=== PATIENT | male | born 1990 | race Caucasian/White ===

== ENCOUNTER 2020-04-30 11:48 | Emergency (ER) | payer OTHER, SELFPAY ==
[2020-04-30 11:59] VITALS: BP 210/106; PULSE 87; RESP 16; TEMP 36.7; O2SAT 97; BMI 32.5
[2020-04-30 12:04] VITALS: PULSE 82; RESP 16; O2SAT 99
[2020-04-30] MEDS: acetaminophen 325 mg Tablet 650 MG PO (12:33)
--- NOTE | 2020-04-30 12:49 | PC.NURSE ---
Blood glucose 117
[2020-04-30 12:53] LABS: Glucose Point of Care 117 mg/dL (70-110)
[2020-04-30 13:08] LABS: Basophils # 0.1 10^3/uL (0.0-0.1); Basophils % 0.4 %; Eosinophils # 0.2 10^3/uL (0.0-0.8); Eosinophils % 1.3 %; Hematocrit 34.7 % (42.0-52.0); Hemoglobin 11.6 g/dL (11.7-16.6); Lymphocytes # 2.1 10^3/uL (0.8-4.8); Mean Corpuscular HGB Conc 33.4 g/dL (30.0-36.0); Mean Corpuscular Hemoglobin 29.7 pg (28.0-34.0); Mean Corpuscular Volume 88.7 fL (80-94); Mean Platelet Volume 10.5 fL (7.4-10.4); Monocytes # 0.9 10^3/uL (0.2-0.9); Monocytes % 7.3 %; Neutrophils # 9.02 10^3/uL (1.8-7.7); Neutrophils % 73.7 %; Nucleated Red Blood Cells % 0 %; Platelet Count 185 10^3/cmm (130-400); Red Blood Count 3.91 10^6/uL (4.1-5.3); Red Cell Distribution Width 12.7 % (12.1-15.1); White Blood Count 12.3 10^3/uL (4.0-10.0)
--- NOTE | 2020-04-30 13:23 | W.ED.HA ---
HPI - Headache General: Chief Complaint: Headache Stated Complaint: migraine Time Seen by Provider: 04/30/20 12:08 History of Present Illness: HPI Narrative: 30-year-old male patient presents to the emergency department with 3-day onset of headache. He is insulin-dependent diabetic, reports low blood sugar past several days despite reduction of insulin. He reports seen at [facility] on Thursday, April 28, 2020, due to continued headache, HTN and low blood sugar. States was not placed on BP medication. He reports was told blood pressure was elevated at that time, reports stopped his lisinopril years ago. His primary care physician is Dr. Escamilla, he reports nausea with headache but denies vomiting. He denies history of migraine headaches, denies diagnosis of migraines. He reports migraine is located on the front of the head. He denies falls, he reports tremors and dizziness. He denies trauma such as hitting his head. MD elicited complaint: headache Onset (ago): day(s) (3) Associated symptoms: Reports nausea; Deny chest pain, confusion, diaphoresis, fever(s), rash or vomiting Review of Systems General: Reports: 10 or more systems reviewed and unremarkable except in HPI and below Const: Denies: fever(s), chills or diaphoresis Eyes: Denies: blurry vision or eye redness ENMT: Denies: throat pain, dental pain or disequilibrium Card: Denies: chest pain, palpitations or irregular heart rhythm Resp: Denies: dyspnea, productive cough, non-productive cough or wheezing GI: Reports: nausea; Denies: abdominal pain, vomiting, dysphagia or heartburn : Denies: dysuria Musc: Denies: back pain, extremity swelling, joint swelling or muscle weakness Skin/Breast: Denies: rash, pruritus or changes in skin color Neuro: Reports: headache(s); Denies: numbness in extremities, weakness in extremities, difficulty walking, confusion or behavioral changes Farhan/Lymph: Denies: easy bruising Physical Exam Const: COMMON NORMALS: patient oriented x3, healthy appearing and alert GENERAL APPEARANCE: cooperative, comfortable and well hydrated HENMT: COMMON NORMALS: normocephalic, Normal external nose present and moist oral mucous membranes HEAD & SCALP: normocephalic NOSE: Normal external nose present Eye: COMMON NORMALS: Equal, round and reactive pupils present and EOMs intact bilaterally GENERAL EYE: appearance normal, both eyes and all related structures PUPIL: Yes Equal, round and reactive pupils present Neck/C-Spine: COMMON NORMALS: full ROM and no lymphadenopathy GENERAL: Yes normal visual inspection and Yes trachea midline CERVICAL SPINE: Yes cervical ROM normal Lymph: LYMPHATIC: no lymphadenopathy noted Chest: COMMONS NORMALS: normal inspection of the chest Resp: COMMON NORMALS: normal respiratory effort and clear to auscultation bilaterally AUSCULTATION: clear to auscultation bilaterally Cardio: COMMON NORMALS: regular rhythm, S1 normal heart sound present and S2 normal heart sound present RHYTHM: regular rhythm HEART SOUNDS: S1 normal heart sound present and S2 normal heart sound present GI: COMMON NORMALS: Soft to palpation and non-tender INSPECTION: Yes normal to inspection PALPATION: Yes Soft to palpation : COMMON NORMALS: Yes no CVA tenderness BLADDER/KIDNEY EXAM: Yes no CVA tenderness Back/Pelvis: COMMON NORMALS: no CVA tenderness and thoracic and lumbar spine normal to inspection Extremity: COMMON NORMALS: normal to inspection and capillary refill normal Neuro: COMMON NORMALS: patient oriented x3 and no focal motor deficits SENSORIUM/ORIENTATION: Yes alert SPEECH: speech normal GAIT: Yes Normal gait present MOTOR EXAM: 5/5 motor strength present throughout Psych: COMMON NORMALS: mental status grossly normal, Normal thought process present and cooperative ACTIVITY/MOTOR BEHAVIOR: Yes appropriate eye contact THOUGHT PROCESS: Normal thought process present Skin: COMMON NORMALS: no rashes or lesions noted and turgor normal GENERAL SKIN EXAM: no rashes or lesions noted and turgor normal Course ED course: 30-year-old male patient presents to the emergency department with hypertension and headache. Potassium was found to be 3.2, replaced. Headache and nausea resolved with use of Tylenol, CT negative for intracranial abnormality, ethmoid sinus and right sphenoid and medial frontal sinus noted with mucosal thickening. Case discussed with Dr. Caruso -clonidine administered due to blood pressure 211/102. Patient recommended to resume lisinopril. Advised on lifestyle changes. Advised will need follow-up with Dr. Escamilla this week without fail for repeat chemistry and blood pressure follow-up. Follow-up blood pressure 175/100, reports blood pressure elevation for quite some time, I discussed with him at length diabetes and nephropathy, need for blood pressure control, goal blood pressure less than 130/80, advised patient of protein in urine and need for lisinopril daily. Verbalized understanding and agrees to follow-up with Dr. Escamilla this week without fail. Vital Signs: Vital signs: Vital Signs Temperature 98.1 F 04/30/20 11:59 Pulse Rate 92 04/30/20 16:26 Respiratory Rate 18 04/30/20 16:26 Blood Pressure 198/115 04/30/20 16:26 Pulse Oximetry 97 04/30/20 16:26 MDM - Headache Differential Diagnosis: Differential diagnosis headache: Likely migraine, tension headache, subarachnoid hemorrhage and sinusitis Lab Data: Labs: Lab Results 04/30/20 04/30/20 04/30/20 Range/Units 12:47 13:00 13:00 WBC 12.3 H (4.0-10.0) 10^3/ uL RBC 3.91 L (4.1-5.3) 10^6/u L Hgb 11.6 L (11.7-16.6) g/dL Hct 34.7 L (42.0-52.0) % MCV 88.7 (80-94) fL MCH 29.7 (28.0-34.0) pg MCHC 33.4 (30.0-36.0) g/dL RDW 12.7 (12.1-15.1) % Plt Count 185 (130-400) 10^3/c mm MPV 10.5 H (7.4-10.4) fL Neut % (Auto) 73.7 % Lymph % (Auto) 17.0 % [place] % (Auto) 7.3 % Eos % (Auto) 1.3 % Baso % (Auto) 0.4 % Neut # (Auto) 9.02 H (1.8-7.7) 10^3/u L Lymph # (Auto) 2.1 (0.8-4.8) 10^3/u L [place] # (Auto) 0.9 (0.2-0.9) 10^3/u L Eos # (Auto) 0.2 (0.0-0.8) 10^3/u L Baso # (Auto) 0.1 (0.0-0.1) 10^3/u L Nucleated RBC % (a uto) 0 % Nucleated RBCs # 0.0 /100WBC Sodium 141 (136-145) mmol/L Potassium 3.2 L (3.5-5.1) mmol/L Chloride 105 (98-107) mmol/L Carbon Dioxide 27 (22-29) mmol/L Anion Gap 12.2 (5-19) BUN 10 (6-20) mg/dL Creatinine 1.2 (0.7-1.2) mg/dL GFR Calculation 71.1 L (90-130) mL/min Glucose 111 (65-115) mg/dL POC Glucose 117 (70-110) mg/dL Calculated Osmolal ity 289 (285-295) mOsm/k g Calcium 8.6 (8.5-10.5) mg/dL Total Bilirubin 0.8 (0.15-1.2) mg/dL AST 19 (0-40) U/L ALT 12 (0-41) U/L Alkaline Phosphata se 56 (40-130) IU/L Total Protein 6.3 L (6.6-8.7) g/dL Albumin 3.3 L (3.5-5.2) g/dL Globulin 3.0 (1.3-4.6) g/dL Lipase 9 L (13-60) U/L Urine Color (Yellow) Urine Appearance (CLEAR) Urine pH (5-7) Ur Specific Gravit y (1.005-1.030) Urine Protein (Negative) Urine Glucose (UA) (Normal) Urine Ketones (Negative) Urine Blood (Negative) Urine Nitrate (Negative) Urine Bilirubin (NEGATIVE) Urine Urobilinogen (Negative) mg/dL Ur Leukocyte Jesenia ase (Negative) Urine RBC (0-2) /hpf Urine WBC (0-5) /hpf Ur Squamous Epith Cells (0-5) Amorphous Sediment Urine Bacteria (NONE) Urine Mucus 04/30/20 Range/Units 14:03 WBC (4.0-10.0) 10^3/ uL RBC (4.1-5.3) 10^6/u L Hgb (11.7-16.6) g/dL Hct (42.0-52.0) % MCV (80-94) fL MCH (28.0-34.0) pg MCHC (30.0-36.0) g/dL RDW (12.1-15.1) % Plt Count (130-400) 10^3/c mm MPV (7.4-10.4) fL Neut % (Auto) % Lymph % (Auto) % [place] % (Auto) % Eos % (Auto) % Baso % (Auto) % Neut # (Auto) (1.8-7.7) 10^3/u L Lymph # (Auto) (0.8-4.8) 10^3/u L [place] # (Auto) (0.2-0.9) 10^3/u L Eos # (Auto) (0.0-0.8) 10^3/u L Baso # (Auto) (0.0-0.1) 10^3/u L Nucleated RBC % (a uto) % Nucleated RBCs # /100WBC Sodium (136-145) mmol/L Potassium (3.5-5.1) mmol/L Chloride (98-107) mmol/L Carbon Dioxide (22-29) mmol/L Anion Gap (5-19) BUN (6-20) mg/dL Creatinine (0.7-1.2) mg/dL GFR Calculation (90-130) mL/min Glucose (65-115) mg/dL POC Glucose (70-110) mg/dL Calculated Osmolal ity (285-295) mOsm/k g Calcium (8.5-10.5) mg/dL Total Bilirubin (0.15-1.2) mg/dL AST (0-40) U/L ALT (0-41) U/L Alkaline Phosphata se (40-130) IU/L Total Protein (6.6-8.7) g/dL Albumin (3.5-5.2) g/dL Globulin (1.3-4.6) g/dL Lipase (13-60) U/L Urine Color Yellow (Yellow) Urine Appearance Clear (CLEAR) Urine pH 6.0 (5-7) Ur Specific Gravit y 1.015 (1.005-1.030) Urine Protein 3+ H (Negative) Urine Glucose (UA) Norm (Normal) Urine Ketones 1+ H (Negative) Urine Blood 3+ H (Negative) Urine Nitrate Negative (Negative) Urine Bilirubin Neg (NEGATIVE) Urine Urobilinogen 1 H (Negative) mg/dL Ur Leukocyte Jesenia ase Negative (Negative) Urine RBC 25-40 H (0-2) /hpf Urine WBC 0-4 H (0-5) /hpf Ur Squamous Epith Cells 0-4 H (0-5) Amorphous Sediment Not Reportable Urine Bacteria 1+ H (NONE) Urine Mucus 1+ Imaging Data^: CT Head: Radiologist's impression: [facility] [address] [place] [address] CT Scan Report Signed Patient: Klever Jack #: [id number] : 1990Acct#:[id number] Age/Sex: 30 / MADM Date: 04/30/20 Loc: ERRoom/Bed: Attending Dr: Ordering Provider/Ordering MD: Rocio Weldon Date of Service: 04/30/20 Procedure(s): CT head wo con* [id number] Accession Number(s): [id number] Report Number: [id number] PROCEDURE INFORMATION: Exam: CT Head Without Contrast Exam date and time: 04/30/2020 1:30 PM Age: 30 years old Clinical indication: Pain; Headache not specified; Patient HX: Fronto-orbital headache x 3 days TECHNIQUE: Imaging protocol: Computed tomography of the head without contrast. Radiation optimization: All CT scans at this facility use at least one of these dose optimization techniques: automated exposure control; mA and/or kV adjustment per patient size (includes targeted exams where dose is matched to clinical indication); or iterative reconstruction. COMPARISON: No relevant prior studies available. RADIATION DOSE METRICS: Total DLP (mGy-cm): 742.04 FINDINGS: Brain: Extra-axial fluid posterior to cerebellum is likely anatomic variant angie cisterna magna. There is no acute intracranial hemorrhage. No extra-axial fluid collection. No evidence of acute infarct. Mendez white differentiation is intact. There is no evidence of mass. There is no mass effect or midline shift. Ventricles: No ventriculomegaly. Bones/joints: No acute fracture. Sinuses: There is mild mucosal thickening in right greater than left ethmoid air cells and in right sphenoid and medial frontal sinus. No air-fluid levels. Mastoid air cells: There is small amount of opacification likely effusion in inferior posterior mastoid air cells. Soft tissues: Unremarkable as visualized. CT/CT head wo con* [id number] IMPRESSION: 1. No evidence of acute intracranial abnormality. No acute intracranial hemorrhage, evidence of acute infarct, or evidence of mass producing lesion. 2. Minimal mucosal sinus disease. Small amount of mastoid partial opacification. Radiation Dose CTDIVOL = (mGy): DLP = 742.04 (mGy-cm) Dictated By:Stephanie Quevedo MD Signed By:Stephanie Quevedoigned Date/Time:04/30/20 1401 Discharge Plan Discharge Patient Disposition: Home Clinical Impression: Acute hypokalemia Headache Qualifiers: Headache type: unspecified Headache chronicity pattern: acute headache Intractability: intractable Qualified Code(s): R51 - Headache Sinusitis Qualifiers: Sinusitis location: ethmoidal Chronicity: acute Recurrence: non-recurrent Qualified Code(s): J01.20 - Acute ethmoidal sinusitis, unspecified Hypertension Qualifiers: Hypertension type: essential hypertension Qualified Code(s): I10 - Essential (primary) hypertension Condition: Stable Prescriptions: New lisinopril 20 mg tablet 20 mg PO DAILY MDD 1 Qty: 30 RF: 0 clonidine HCl 0.1 mg tablet 0.1 mg PO DAILY PRN (Reason: hypertensive emergency) Qty: 7 RF: 0 Augmentin 875-125 mg tablet 1 tab PO Q12H Qty: 30 RF: 0 potassium chloride 10 mEq capsule, extended release 10 meq PO BID Qty: 30 RF: 0 No Action ondansetron HCl 4 mg tablet 4 mg PO Q6H PRN (Reason: Nausea) RF: 0 propranolol 60 mg capsule,extended release 24 hr 60 mg PO DAILY RF: 0 ibuprofen 200 mg Tablet 600 mg PO PRN RF: 0 omeprazole 20 mg Capsule,Delayed Release(Dr/Ec) 40 mg PO DAILY RF: 0 Levemir FlexTouch U-100 Insuln 100 unit/mL (3 mL) insulin pen 44 unit SUBCUT BID RF: 0 Discharge Orders: Discharge Order (Routine); Ordered 04/30/20 Ordered By: Rocio Weldon Referrals: Alex Escamilla [Primary Care Provider] - Discharge Diet: Cardiac and Low Salt Discharge Activity: Resume usual activity Patient Instructions: Sinusitis (ED), Hypokalemia (ED), Acute Headache (ED), Hypertension (ED) Activity Restrictions/Additional Instructions: Push fluids Encourage small snacks for low blood sugar, follow-up with your doctor this week without fail for repeat chemistry You will need follow-up for continued episodes of low blood sugar Take potassium with food Start lisinopril Monitor blood pressure daily while at rest for 30 minutes, record your readings and take to your primary care provider Take clonidine daily as needed and only if blood pressure is greater than 180/100 Encourage low-sodium diet as this will help drop blood pressure If headache returns, take Tylenol, 650 mg every 4 hours as needed Return to the emergency department if you develop the worst headache of your life, intractable vomiting COVID testing completed today, please quarantine until test results are confirmed Stand Alone Forms: Work/School Release Discharge Date/Time: 04/30/20 16:30 Coding Level of Care Code ED Merchandising Manager for Fly Fwd 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
--- NOTE | 2020-04-30 13:26 | CTR_ITS ---
PROCEDURE INFORMATION: Exam: CT Head Without Contrast Exam date and time: 04/30/2020 1:30 PM Age: 30 years old Clinical indication: Pain; Headache not specified; Patient HX: Fronto-orbital headache x 3 days TECHNIQUE: Imaging protocol: Computed tomography of the head without contrast. Radiation optimization: All CT scans at this facility use at least one of these dose optimization techniques: automated exposure control; mA and/or kV adjustment per patient size (includes targeted exams where dose is matched to clinical indication); or iterative reconstruction. COMPARISON: No relevant prior studies available. RADIATION DOSE METRICS: Total DLP (mGy-cm): 742.04 FINDINGS: Brain: Extra-axial fluid posterior to cerebellum is likely anatomic variant angie cisterna magna. There is no acute intracranial hemorrhage. No extra-axial fluid collection. No evidence of acute infarct. Mendez white differentiation is intact. There is no evidence of mass. There is no mass effect or midline shift. Ventricles: No ventriculomegaly. Bones/joints: No acute fracture. Sinuses: There is mild mucosal thickening in right greater than left ethmoid air cells and in right sphenoid and medial frontal sinus. No air-fluid levels. Mastoid air cells: There is small amount of opacification likely effusion in inferior posterior mastoid air cells. Soft tissues: Unremarkable as visualized. CT/CT head wo con* [id number] IMPRESSION: 1. No evidence of acute intracranial abnormality. No acute intracranial hemorrhage, evidence of acute infarct, or evidence of mass producing lesion. 2. Minimal mucosal sinus disease. Small amount of mastoid partial opacification. Radiation Dose CTDIVOL = (mGy): DLP = 742.04 (mGy-cm)
[2020-04-30 13:30] LABS: Alanine Aminotransferase 12 U/L (0-41); Albumin Level 3.3 g/dL (3.5-5.2); Alkaline Phosphatase 56 IU/L (40-130); Anion Gap 12.2 (5-19); Aspartate Amino Transferase 19 U/L (0-40); Blood Urea Nitrogen 10 mg/dL (6-20); Calcium 8.6 mg/dL (8.5-10.5); Carbon Dioxide 27 mmol/L (22-29); Chloride 105 mmol/L (98-107); Glomerular Filtration Rate 71.1 mL/min (90-130); Glucose 111 mg/dL (65-115); Lipase 9 U/L (13-60); Osmolality Calculated 289 mOsm/kg (285-295); Potassium 3.2 mmol/L (3.5-5.1); Sodium 141 mmol/L (136-145); Total Bilirubin 0.8 mg/dL (0.15-1.2); Total Protein 6.3 g/dL (6.6-8.7)
[2020-04-30 14:42] LABS: Add Urine Microscopic? YES; Bilirubin Urine Neg (NEGATIVE); Blood Urine 3+ (Negative); Glucose Urine UA Norm (Normal); Ketones Urine 1+ (Negative); Leukocyte Esterase Urine Negative (Negative); Nitrate Urine Negative (Negative); Protein Urine 3+ (Negative); Specific Gravity, Urine 1.015 (1.005-1.030); Urine Appearance Clear (CLEAR); Urine Color Yellow (Yellow); Urobilinogen Urine 1 mg/dL (Negative)
[2020-04-30 14:49] VITALS: BP 196/109
[2020-04-30] MEDS: cloNIDine 0.1 mg Tablet PO (14:49)
[2020-04-30 14:53] LABS: Add Urine Culture? Yes; Bacteria Urine 1+; Mucus Urine 1+; RBC Urine 25-40 /hpf (0-2); Squamous Epithelial Cell Urine 0-4 (0-5); WBC Urine 0-4 /hpf (0-5)
[2020-04-30] MEDS: potassium chloride ER 10 mEq Tablet 40 MEQ PO (14:53)
[2020-04-30] MEDS: lisinopril 20 mg Tablet PO (15:56)
[2020-04-30 16:26] VITALS: BP 198/115; PULSE 92; RESP 18; O2SAT 97
[2020-05-03 05:23] LABS: Quest SARS-CoV-2 RNA NOT DETECTED (NOT DETECTED)
--- NOTE | 2020-05-03 09:03 | PC.NURSE ---
Pt notified of negative COVID.
--- NOTE | 2020-05-04 11:23 | DCPLANNER ---
[employer] division manager had message to schedule a follow up appointment for patient with Dr. Escamilla. [employer] division manager called patient to speak with patient about getting the appointment scheduled. Patient stated that he would schedule the appointment.
== END 2020-04-30 16:30 | disposition home or self-care (01) ==
PROVIDERS: Emergency Provider Nurse Practitioner Family; PCP Family Medicine
DX: R51 Headache (principal); E87.6 Hypokalemia; J01.20 Acute ethmoidal sinusitis, unspecified; I10 Essential (primary) hypertension; Z79.4 Long term (current) use of insulin
CPT/HCPCS: 12345; 36416; 70450; 80053; 81001; 82962; 83690; 85025; 87086; 87635; 99283

== ENCOUNTER 2020-05-01 09:59 | Emergency (ER) | payer OTHER, SELFPAY ==
[2020-05-01 10:04] VITALS: BP 209/126; PULSE 90; RESP 17; TEMP 36.4; O2SAT 96; BMI 32.5
[2020-05-01 10:08] VITALS: BP 205/117; PULSE 84; RESP 18; O2SAT 97
--- NOTE | 2020-05-01 10:28 | ECG_ITS ---
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 Measurements Intervals [place] Rate: 78 P: 38 UT: 130 QRS: 21 QRSD: 102 T: 20 QT: 391 QTc: 446 Interpretive Statements SINUS RHYTHM No previous ECG available for comparison Electronically Signed On 05-01-2020 17:06:25 CDT by Zoie Chaney M.D. [id number] f
[2020-05-01 10:47] LABS: Basophils # 0.1 10^3/uL (0.0-0.1); Basophils % 0.7 %; Eosinophils # 0.2 10^3/uL (0.0-0.8); Eosinophils % 2.3 %; Hemoglobin 12.2 g/dL (11.7-16.6); Lymphocytes # 1.9 10^3/uL (0.8-4.8); Lymphocytes % 20.4 %; Mean Corpuscular HGB Conc 33.9 g/dL (30.0-36.0); Mean Corpuscular Hemoglobin 29.5 pg (28.0-34.0); Mean Corpuscular Volume 87.2 fL (80-94); Mean Platelet Volume 9.8 fL (7.4-10.4); Monocytes # 0.8 10^3/uL (0.2-0.9); Monocytes % 8.2 %; Neutrophils # 6.19 10^3/uL (1.8-7.7); Nucleated Red Blood Cells % 0 %; Platelet Count 218 10^3/cmm (130-400); Red Blood Count 4.13 10^6/uL (4.1-5.3); Red Cell Distribution Width 12.9 % (12.1-15.1); White Blood Count 9.1 10^3/uL (4.0-10.0)
--- NOTE | 2020-05-01 10:55 | ED_ITS ---
HPI - General Adult General: Chief complaint: General Medical Stated complaint: high bp Time Seen by Provider: 05/01/20 10:11 History of Present Illness: HPI narrative: 30-year-old male has been to emergency room 3 times now in the last 2 days. Last couple visits his blood pressure is elevated he was given medications for blood pressure. He did not get these filled. This morning he was nausea having nausea and some vomiting although he denies any chest pain. He did not take his blood pressure medications because of the nausea and vomiting. He denies fever he did have some diarrhea yesterday. Denies any hematemesis or coffee-ground emesis he is not vomiting on arrival in the emergency room but is still setting is nauseous Onset (ago): minute(s) Severity: moderate (Nausea) Relieving factors: none Exacerbating factors: none Associated symptoms: Reports malaise and nausea; Deny chest pain, confusion, cough, diaphoresis, decreased appetite, dyspnea, fevers/chills, headache(s), rash, palpitations, seizures, short of breath, syncope, vomiting or weakness Treatments prior to arrival: none Review of Systems Const: Reports: malaise; Denies: diaphoresis ENMT: Denies: throat pain, ear or mastoid pain, nasal discharge or nasal congestion Card: Denies: chest pain, palpitations or syncope Resp: Denies: dyspnea GI: Reports: nausea; Denies: vomiting : Denies: flank pain, dysuria, urinary frequency or urinary urgency Skin/Breast: Denies: rash Neuro: Denies: headache(s) or confusion [facility] ED PFSH: Medical History Hypertension Type 1 diabetes mellitus Social History Smoking and tobacco status: current every day smoker cigarettes Packs smoked per day: 1 Years cigarettes smoked: 15 [ Other cigarette details: Also chews tobacco ] Alcohol intake: current Alcohol intake frequency: holidays/special occasions only Physical Exam Const: COMMON NORMALS: no acute distress GENERAL APPEARANCE: cooperative and comfortable ORIENTATION/CONSCIOUSNESS: Yes awake, Yes oriented to person, Yes oriented to place and Yes oriented to time HENMT: COMMON NORMALS: normocephalic, atraumatic and hearing grossly normal bilaterally HEAD & SCALP: normocephalic and atraumatic Eye: COMMON NORMALS: Equal, round and reactive pupils present, EOMs intact bilaterally, conjunctivae normal and no scleral icterus CONJUNCTIVA: Yes conjunctivae normal PUPIL: Yes Equal, round and reactive pupils present Neck/C-Spine: COMMON NORMALS: full ROM, no lymphadenopathy, supple and no JVD Lymph: LYMPHATIC: no lymphadenopathy noted and no lymphedema noted Resp: COMMON NORMALS: normal respiratory effort, No retractions, No use of accessory muscles and clear to auscultation bilaterally AUSCULTATION: clear to auscultation bilaterally Cardio: COMMON NORMALS: no JVD, regular rate, regular rhythm and No murmurs present (Cardio) RATE: regular rate RHYTHM: regular rhythm GI: COMMON NORMALS: Soft to palpation and No hepatosplenomegaly present AUSCULTATION: Yes normoactive bowel sounds PALPATION: Yes Soft to palpation, No Tenderness to palpation present (GI), No Guarding due to palpation present (GI) and Yes No hepatosplenomegaly present Extremity: COMMON NORMALS: normal to inspection, capillary refill normal, no clubbing, cyanosis or edema, no calf tenderness and no pedal edema Neuro: SENSORIUM/ORIENTATION: Yes oriented to person, Yes oriented to place and Yes oriented to time Skin: COMMON NORMALS: no rashes or lesions noted GENERAL SKIN EXAM: no rashes or lesions noted Course Vital Signs: Vital signs: Vital Signs Temperature 97.6 F 05/01/20 10:04 Pulse Rate 80 05/01/20 14:37 Respiratory Rate 16 05/01/20 14:37 Blood Pressure 184/93 05/01/20 14:37 Pulse Oximetry 96 05/01/20 14:37 MDM - General Adult MDM Narrative: Medical decision making narrative: Blood pressure is improved we will go ahead and start her on amlodipine 10 mg daily as well as Toprol-XL 50 mg daily. Asked her to stop the propranolol and decrease her lisinopril. She should follow-up with her primary care doctor within the week to reevaluate blood pressure. Lab Data: Labs: Lab Results 05/01/20 05/01/20 05/01/20 Range/Units 10:35 10:35 12:24 WBC 9.1 (4.0-10.0) 10^3/ uL RBC 4.13 (4.1-5.3) 10^6/u L Hgb 12.2 (11.7-16.6) g/dL Hct 36.0 L (42.0-52.0) % MCV 87.2 (80-94) fL MCH 29.5 (28.0-34.0) pg MCHC 33.9 (30.0-36.0) g/dL RDW 12.9 (12.1-15.1) % Plt Count 218 (130-400) 10^3/c mm MPV 9.8 (7.4-10.4) fL Neut % (Auto) 68.0 % Lymph % (Auto) 20.4 % [place] % (Auto) 8.2 % Eos % (Auto) 2.3 % Baso % (Auto) 0.7 % Neut # (Auto) 6.19 (1.8-7.7) 10^3/u L Lymph # (Auto) 1.9 (0.8-4.8) 10^3/u L [place] # (Auto) 0.8 (0.2-0.9) 10^3/u L Eos # (Auto) 0.2 (0.0-0.8) 10^3/u L Baso # (Auto) 0.1 (0.0-0.1) 10^3/u L Nucleated RBC % (a uto) 0 % Nucleated RBCs # 0.0 /100WBC Sodium 142 (136-145) mmol/L Potassium 3.7 (3.5-5.1) mmol/L Chloride 107 (98-107) mmol/L Carbon Dioxide 26 (22-29) mmol/L Anion Gap 12.7 (5-19) BUN 15 (6-20) mg/dL Creatinine 1.3 H (0.7-1.2) mg/dL GFR Calculation 64.8 L (90-130) mL/min Glucose 60 L (65-115) mg/dL POC Glucose 84 (70-110) mg/dL Calculated Osmolal ity 288 (285-295) mOsm/k g Calcium 8.7 (8.5-10.5) mg/dL Total Bilirubin 0.8 (0.15-1.2) mg/dL AST 15 (0-40) U/L ALT 14 (0-41) U/L Alkaline Phosphata se 60 (40-130) IU/L Total Protein 7.0 (6.6-8.7) g/dL Albumin 3.6 (3.5-5.2) g/dL Globulin 3.4 (1.3-4.6) g/dL Discharge Plan Discharge Patient Disposition: Home Clinical Impression: Hypertension, Type 1 diabetes mellitus Condition: Stable Prescriptions: New amlodipine 10 mg tablet 10 mg PO DAILY Qty: 30 RF: 0 Toprol XL 50 mg tablet extended release 24 hr 50 mg PO ONCE Qty: 30 RF: 0 Changed lisinopril 20 mg tablet 10 mg PO DAILY MDD 1 Qty: 30 RF: 0 Levemir FlexTouch U-100 Insuln 100 unit/mL (3 mL) insulin pen 40 unit SUBCUT BID Qty: 0 RF: 0 Discontinued propranolol 60 mg capsule,extended release 24 hr 60 mg PO DAILY RF: 0 No Action ondansetron HCl 4 mg tablet 4 mg PO Q6H PRN (Reason: Nausea) RF: 0 ibuprofen 200 mg Tablet 600 mg PO PRN RF: 0 omeprazole 20 mg Capsule,Delayed Release(Dr/Ec) 40 mg PO DAILY RF: 0 clonidine HCl 0.1 mg tablet 0.1 mg PO DAILY PRN (Reason: hypertensive emergency) Qty: 7 RF: 0 amoxicillin-pot clavulanate [Augmentin] 875-125 mg tablet 1 tab PO Q12H Qty: 30 RF: 0 potassium chloride 10 mEq capsule, extended release 10 meq PO BID Qty: 30 RF: 0 Discharge Orders: Discharge Order (Routine); Ordered 05/01/20 Ordered By: Tommie Sanderson Referrals: Alex Escamilla [Primary Care Provider] - Activity Restrictions/Additional Instructions: Follow-up with your primary care doctor within 1 week Discharge Date/Time: 05/01/20 14:38 Coding Level of Care Code ED Carburetor Repairer for Chg Fwd 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
[2020-05-01] MEDS: amlodipine 10 mg Tablet PO (10:57)
[2020-05-01] MEDS: hyDRALAzine 20 mg/mL INJ 1 mL IVP (10:58)
[2020-05-01] MEDS: ondansetron 2 mg/ML SDV 2 mL 4 MG IVP (10:58)
[2020-05-01 11:06] LABS: Alanine Aminotransferase 14 U/L (0-41); Albumin Level 3.6 g/dL (3.5-5.2); Alkaline Phosphatase 60 IU/L (40-130); Anion Gap 12.7 (5-19); Aspartate Amino Transferase 15 U/L (0-40); Blood Urea Nitrogen 15 mg/dL (6-20); Calcium 8.7 mg/dL (8.5-10.5); Carbon Dioxide 26 mmol/L (22-29); Chloride 107 mmol/L (98-107); Globulin 3.4 g/dL (1.3-4.6); Glomerular Filtration Rate 64.8 mL/min (90-130); Glucose 60 mg/dL (65-115); Osmolality Calculated 288 mOsm/kg (285-295); Potassium 3.7 mmol/L (3.5-5.1); Sodium 142 mmol/L (136-145); Total Bilirubin 0.8 mg/dL (0.15-1.2)
--- NOTE | 2020-05-01 11:11 | PC.NURSE ---
REPORT RECEIVED FROM CHHAYA BUTLER [facility].
--- NOTE | 2020-05-01 11:43 | PC.NURSE ---
WHILE AT BEDSIDE PT IS IN NAD. PT REQUESTED THAT HOB BE DECREASED. PERFORMED REQUEST. PT DENIES ANY FURTHER NEEDS.
[2020-05-01 12:30] LABS: Glucose Point of Care 84 mg/dL (70-110)
[2020-05-01 13:30] VITALS: BP 177/114; PULSE 90; RESP 18; O2SAT 99
[2020-05-01] MEDS: metoclopramide 5 mg/mL SDV 2 mL 10 MG IVP (13:31)
[2020-05-01] MEDS: metoprolol tartrate 1 mg/1 mL SDV 5 mL 5 MG IV (13:33)
[2020-05-01] MEDS: metoprolol succinate ER (24 HR) 50 mg Tablet PO (13:59)
[2020-05-01] MEDS: amlodipine 5 mg Tablet PO (13:59)
[2020-05-01] MEDS: lisinopril 10 mg Tablet PO (13:59)
[2020-05-01 14:37] VITALS: BP 184/93; PULSE 80; RESP 16; O2SAT 96
== END 2020-05-01 14:38 | disposition home or self-care (01) ==
PROVIDERS: Emergency Provider Family Medicine; PCP Family Medicine
DX: I10 Essential (primary) hypertension (principal); E10.9 Type 1 diabetes mellitus without complications; Z79.4 Long term (current) use of insulin; F17.210 Nicotine dependence, cigarettes, uncomplicated
CPT/HCPCS: 12345; 36415; 36416; 80053; 82962; 85025; 93005; 96374; 96375; 99283; 99284; J0360; J2405; J2765; J3490

== ENCOUNTER 2020-08-11 16:50 | Inpatient (IN) | payer OTHER, SELFPAY ==
[2020-08-11] VITALS (23 sets, daily range): BP systolic 158–193; BP diastolic 87–119; PULSE 87–117; RESP 14–42; TEMP 37.3; O2SAT 89–97; BMI 34.9
--- NOTE | 2020-08-11 17:08 | XRR_ITS ---
PROCEDURE INFORMATION: Exam: XR Chest, 1 View Exam date and time: 08/11/2020 5:29 PM Age: 30 years old Clinical indication: Cough and dyspnea; Additional info: Dyspnea/cough TECHNIQUE: Imaging protocol: XR of the chest Views: 1 view. COMPARISON: No relevant prior studies available. FINDINGS: Lungs: There is interstitial prominence compatible with fibrosis, bronchitis, viral pneumonitis or mild interstitial edema. There is no lobar consolidation. Pleural space: Unremarkable. No pleural effusion. No pneumothorax. Heart/Mediastinum: The heart is enlarged. Bones/joints: No acute abnormality. XR/XR chest 1V portable [id number] IMPRESSION: There is interstitial prominence compatible with fibrosis, bronchitis, viral pneumonitis or mild interstitial edema.
[2020-08-11 17:18] LABS: Glucose Point of Care 149 mg/dL (70-110)
[2020-08-11] MEDS: ondansetron 2 mg/ML SDV 2 mL 4 MG IVP (17:25)
[2020-08-11 17:27] LABS: Basophils % 0.3 %; Eosinophils # 0.3 10^3/uL (0.0-0.8); Eosinophils % 1.7 %; Hematocrit 32.3 % (42.0-52.0); Hemoglobin 10.4 g/dL (11.7-16.6); Lymphocytes # 1.2 10^3/uL (0.8-4.8); Mean Corpuscular HGB Conc 32.2 g/dL (30.0-36.0); Mean Corpuscular Hemoglobin 29.7 pg (28.0-34.0); Mean Corpuscular Volume 92.3 fL (80-94); Mean Platelet Volume 10.8 fL (7.4-10.4); Monocytes # 0.7 10^3/uL (0.2-0.9); Monocytes % 4.6 %; Neutrophils # 12.77 10^3/uL (1.8-7.7); Neutrophils % 84.9 %; Nucleated Red Blood Cells % 0 %; Platelet Count 190 10^3/cmm (130-400); Red Cell Distribution Width 13.9 % (12.1-15.1)
[2020-08-11] MEDS: metoprolol tartrate 1 mg/1 mL SDV 5 mL 5 MG IV ×2 (17:43→20:18)
[2020-08-11 17:45] LABS: Alanine Aminotransferase 16 U/L (0-41); Albumin Level 2.9 g/dL (3.5-5.2); Alkaline Phosphatase 60 IU/L (40-130); Anion Gap 11.5 (5-19); Aspartate Amino Transferase 20 U/L (0-40); Blood Urea Nitrogen 13 mg/dL (6-20); Calcium 8.3 mg/dL (8.5-10.5); Carbon Dioxide 28 mmol/L (22-29); Chloride 102 mmol/L (98-107); Globulin 2.8 g/dL (1.3-4.6); Glucose 154 mg/dL (65-115); Osmolality Calculated 289 mOsm/kg (285-295); Potassium 3.5 mmol/L (3.5-5.1); Sodium 138 mmol/L (136-145); Total Bilirubin 0.7 mg/dL (0.15-1.2); Total Protein 5.7 g/dL (6.6-8.7)
--- NOTE | 2020-08-11 17:58 | W.ED.SOB ---
HPI - SOB/Dyspnea General: Chief Complaint: Shortness of Breath/Dyspnea Stated Complaint: COUGH/ABD AND LEG SWELLING Time Seen by Provider: 08/11/20 17:06 History of Present Illness: HPI Narrative: 30-year-old male presents emergency room complaining of shortness of breath. He was seen almost a week ago and treated for a pneumonia. He still has a bit of productive cough. He states yesterday he was seen his primary care doctor told he had some fluid on his lung but he did not do anything about it. I seen this gentleman earlier this year he had significantly elevated blood pressure which made some medication adjustments including lowering his lisinopril since his kidney function was slightly elevated his blood sugars he states have been relatively normal he denies any nausea vomiting or diarrhea MD elicited complaint: shortness of breath and cough Pertinent past history: diabetes Onset (ago): day(s) Timing: constant Severity: moderate Exacerbating factors: exertion, movement and coughing Relieving factors: rest Known history of: diabetes Associated symptoms: Reports chest congestion, cough and nausea; Deny abdominal pain, chest pain, diaphoresis, dizziness, extremity pain, fever(s), hemoptysis, lightheadedness, myalgias, orthopnea, palpitations, paresthesias, polydipsia, polyuria, rash, sense of impending doom, syncope or vomiting Review of Systems Const: Denies: fever(s) or diaphoresis ENMT: Denies: throat pain, ear or mastoid pain, nasal discharge or nasal congestion Card: Denies: chest pain, palpitations, lightheadedness, syncope or orthopnea Resp: Reports: chest congestion; Denies: hemoptysis GI: Reports: nausea; Denies: abdominal pain or vomiting : Denies: flank pain, dysuria, urinary frequency or urinary urgency Musc: Denies: extremity pain Skin/Breast: Denies: rash or pruritus Endo: Denies: polyuria or polydipsia PFSH ED PFSH: Medical History Hypertension Type 1 diabetes mellitus Social History Smoking and tobacco status: current every day smoker cigarettes Packs smoked per day: 1 Years cigarettes smoked: 15 [ Other cigarette details: Also chews tobacco ] Alcohol intake: current Alcohol intake frequency: holidays/special occasions only Physical Exam Const: COMMON NORMALS: no acute distress GENERAL APPEARANCE: cooperative and comfortable ORIENTATION/CONSCIOUSNESS: Yes awake, Yes oriented to person, Yes oriented to place and Yes oriented to time Neck/C-Spine: COMMON NORMALS: no JVD Resp: COMMON NORMALS: normal respiratory effort, No retractions, No use of accessory muscles and clear to auscultation bilaterally AUSCULTATION: clear to auscultation bilaterally Cardio: COMMON NORMALS: no JVD, regular rate, regular rhythm and No murmurs present (Cardio) RATE: regular rate RHYTHM: regular rhythm GI: COMMON NORMALS: Soft to palpation and No hepatosplenomegaly present AUSCULTATION: Yes normoactive bowel sounds PALPATION: Yes Soft to palpation, No Tenderness to palpation present (GI), No Guarding due to palpation present (GI) and Yes No hepatosplenomegaly present Extremity: COMMON NORMALS: normal to inspection, capillary refill normal, no clubbing, cyanosis or edema, no calf tenderness and no pedal edema Neuro: SENSORIUM/ORIENTATION: Yes oriented to person, Yes oriented to place and Yes oriented to time Skin: COMMON NORMALS: no rashes or lesions noted GENERAL SKIN EXAM: no rashes or lesions noted Course Vital Signs: Vital signs: Vital Signs Temperature 99.2 F 08/11/20 16:53 Pulse Rate 92 08/11/20 16:58 Respiratory Rate 18 08/11/20 17:20 Blood Pressure 193/113 08/11/20 16:58 Pulse Oximetry 96 08/11/20 16:58 MDM - SOB/Dyspnea MDM Narrative: Medical decision making narrative: Care turned over to Dr. Vu at change of shift see his notes for final gnosis and disposition. Lab Data: Labs: Lab Results 08/11/20 08/11/20 08/11/20 Range/Units 17:06 17:10 17:10 WBC 15.0 H (4.0-10.0) 10^3/ uL RBC 3.50 L (4.1-5.3) 10^6/u L Hgb 10.4 L (11.7-16.6) g/dL Hct 32.3 L (42.0-52.0) % MCV 92.3 (80-94) fL MCH 29.7 (28.0-34.0) pg MCHC 32.2 (30.0-36.0) g/dL RDW 13.9 (12.1-15.1) % Plt Count 190 (130-400) 10^3/c mm MPV 10.8 H (7.4-10.4) fL Neut % (Auto) 84.9 % Lymph % (Auto) 8.0 % [place] % (Auto) 4.6 % Eos % (Auto) 1.7 % Baso % (Auto) 0.3 % Neut # (Auto) 12.77 H (1.8-7.7) 10^3/u L Lymph # (Auto) 1.2 (0.8-4.8) 10^3/u L Alger # (Auto) 0.7 (0.2-0.9) 10^3/u L Eos # (Auto) 0.3 (0.0-0.8) 10^3/u L Baso # (Auto) 0.0 (0.0-0.1) 10^3/u L Nucleated RBC % (a uto) 0 % Nucleated RBCs # 0.0 /100WBC Sodium 138 (136-145) mmol/L Potassium 3.5 (3.5-5.1) mmol/L Chloride 102 (98-107) mmol/L Carbon Dioxide 28 (22-29) mmol/L Anion Gap 11.5 (5-19) BUN 13 (6-20) mg/dL Creatinine 1.5 H (0.7-1.2) mg/dL GFR Calculation 55.0 L (90-130) mL/min Glucose 154 H (65-115) mg/dL POC Glucose 149 H (70-110) mg/dL Calculated Osmolal ity 289 (285-295) mOsm/k g Calcium 8.3 L (8.5-10.5) mg/dL Total Bilirubin 0.7 (0.15-1.2) mg/dL AST 20 (0-40) U/L ALT 16 (0-41) U/L Alkaline Phosphata se 60 (40-130) IU/L Total Protein 5.7 L (6.6-8.7) g/dL Albumin 2.9 L (3.5-5.2) g/dL Globulin 2.8 (1.3-4.6) g/dL Discharge Plan Discharge Prescriptions: No Action amlodipine 10 mg tablet 10 mg PO DAILY Qty: 30 RF: 0 Toprol XL 50 mg tablet extended release 24 hr 50 mg PO ONCE Qty: 30 RF: 0 lisinopril 20 mg tablet 10 mg PO DAILY MDD 1 Qty: 30 RF: 0 Levemir FlexTouch U-100 Insuln 100 unit/mL (3 mL) insulin pen 40 unit SUBCUT BID Qty: 0 RF: 0 ondansetron HCl 4 mg tablet 4 mg PO Q6H PRN (Reason: Nausea) RF: 0 ibuprofen 200 mg Tablet 600 mg PO PRN RF: 0 omeprazole 20 mg Capsule,Delayed Release(Dr/Ec) 40 mg PO DAILY RF: 0 clonidine HCl 0.1 mg tablet 0.1 mg PO DAILY PRN (Reason: hypertensive emergency) Qty: 7 RF: 0 amoxicillin-pot clavulanate [Augmentin] 875-125 mg tablet 1 tab PO Q12H Qty: 30 RF: 0 potassium chloride 10 mEq capsule, extended release 10 meq PO BID Qty: 30 RF: 0 Coding Level of Care Code 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
[2020-08-11 18:15] LABS: ABG PCO2 39.6 mmHg (35-45); ABG PH Result 7.46 (7.35-7.45); Alveolar-Arterial Oxygen Gradi 5.2 mmHg (5-10); Arterial Blood Gas Hematocrit 34.1 % (42-52); Base Excess ABG 4.3 mmol/L (-2.0-2.0); Blood Gas Allen Test Pos; Blood Gas Operator Identificat ED; Blood Gas Sample Site Radial, left; Blood Gas Sample Type Arterial; HCO3 ABG 28.4 mmol/L (22-26); HGB O2 Sat 89.7 % (95-100); Ionized Calcium Level - ABG 1.1 mmol/L (1.1-1.4); Methemoglobin 0.8 % (0.4-1.5); Oxygen Device ROOM AIR; Oxygen Saturation ABG 92.3; PO2 ABG 60.8 mmHg (80.0-100.0); Potassium Level - ABG 3.6 mmol/L (3.5-5.0); Total Hemoglobin 11.1 g/dL (14-18)
[2020-08-11 19:36] LABS: NT Pro B Type Natriuretic Pept 9975 pg/mL (0-125)
[2020-08-11 19:39] LABS: SARS Covid-2 Antigen Negative (Negative)
[2020-08-11 20:27] LABS: Troponin T (5th) Once 47 ng/L (0-15)
[2020-08-11] MEDS: enalaprilat 1.25 mg/mL Inj IVP (21:18)
[2020-08-11] MEDS: amlodipine 10 mg Tablet PO (21:18)
[2020-08-11] MEDS: bumetanide 0.25 mg/mL SDV 10 mL 2 MG IV (21:18)
[2020-08-11] MEDS: hyDRALAzine 20 mg/mL INJ 1 mL IVP (21:19)
--- NOTE | 2020-08-11 22:30 | PC.NURSE ---
Attempt to d/c pt. He c/o about being SOA. Notified provider. Hold d/c for now. VS. 107 ST, SP02 94% RA, RR 34-40, BP 177/92.
[2020-08-11] MEDS: LORazepam 2 mg/mL INJ 1 mL 1 MG IVP (22:42)
--- NOTE | 2020-08-11 23:00 | CTR_ITS ---
PROCEDURE INFORMATION: Exam: CT Angiography Chest With Contrast Exam date and time: 08/11/2020 11:16 PM Age: 30 years old Clinical indication: Chest pain; Type not specified; Patient HX: C/O cp w cough TECHNIQUE: Imaging protocol: Computed tomographic angiography of the chest with intravenous contrast. 3D rendering (Not supervised by radiologist): MIP and/or 3D reconstructed images were created by the technologist. Radiation optimization: All CT scans at this facility use at least one of these dose optimization techniques: automated exposure control; mA and/or kV adjustment per patient size (includes targeted exams where dose is matched to clinical indication); or iterative reconstruction. Contrast material: OMNI 350; Contrast volume: 78 ml; Contrast route: INTRAVENOUS (IV); COMPARISON: CR (CHEST, ) 08/11/2020 5:19 PM RADIATION DOSE METRICS: Total DLP (mGy-cm): 596.38 FINDINGS: Pulmonary arteries: There is no pulmonary embolus. Aorta: Unremarkable. No aortic aneurysm. No aortic dissection. Lungs: There is diffuse interstitial and mild ground-glass opacity in the lungs compatible with probable mild interstitial edema. Nonspecific bibasilar consolidation is present, consistent with atelectasis, edema, or pneumonia. There is mild bronchiectasis with peribronchial thickening. Pleural space: There are bilateral small pleural effusions. Heart: The heart is enlarged. There is a small pericardial fluid collection present. Mediastinal space: A small hiatal hernia is present. Lymph nodes: There is no axillary adenopathy. Multiple mediastinal lymph nodes are noted including the 11 mm short axis right paratracheal lymph node image 192 and a subcarinal lymph node image 235 measuring 1.6 cm in size. There is a 1.2 cm short axis right hilar lymph node. No left hilar adenopathy. Bones/joints: Unremarkable. No acute fracture. Soft tissues: Unremarkable. CT/CT angio chest PE protcl [id number] IMPRESSION: 1. There is no pulmonary embolus. 2. Nonspecific bibasilar consolidation is present, consistent with atelectasis, edema, or pneumonia. Probable vascular congestion/CHF is also noted. 3. There are small pleural effusions and mediastinal and right hilar adenopathy. Radiation Dose CTDIVOL = (mGy): DLP = 596.38 (mGy-cm)
--- NOTE | 2020-08-11 23:04 | P.HP_ITS ---
Providers/Chief Complaint Primary Care Provider: Alex Escamilla Chief Complaint: COUGH/ABD AND LEG SWELLING History of Present Illness Maximiliano Jack is a 30 year old male who presented today with worsening shortness of breath. Patient is type I diabetic who has been experiencing orthopnea, PND shortness of breath on exertion and mild activities because of worsening shortness of breath, he has not noticed any fever, nausea, vomiting, chest pain, palpitations. He is denying use of drugs. No previous history of PA or stroke. Patient recently received Ativan because of his anxiety and kept going back to sleep during my evaluation. Currently he is on 3 L nasal cannula most likely due to sleep apnea, he is tachycardic, high D-dimer, CTA ruled out PE, diagnostics in the ER revealed RADHA, CHF exacerbation, BNP 9000, pulmonary imaging showing bilateral pleural effusion and vascular congestion, no signs of pneumonia. Review of Systems Const: Reports: chills, body aches and fatigue; Denies: fever(s) Eyes: Denies: change in vision ENMT: Denies: throat pain Card: Reports: edema, swelling of feet/ankles, dyspnea on exertion and o rthopnea; Denies: chest pain Resp: Reports: dyspnea GI: Denies: abdominal pain : Denies: flank pain Musc: Denies: neck pain Skin/Breast: Denies: rash Neuro: Denies: headache(s) Psych: Reports: anxiety Endo: Denies: polyuria Farhan/Lymph: Denies: easy bruising All/Imm: Denies: urticaria Medications/Allergies Home Medications Medication Instructions Recorded Confirmed Last Taken Type omeprazole 40 mg PO DAILY@0800 04/30/20 08/11/20 08/10/20 History Levemir FlexTouch U-100 Insuln 40 unit SUBCUT BID@0800,2200 08/11/20 08/11/20 08/10/20 History albuterol sulfate 2 puff INHALATION Q4H PRN 08/11/20 08/11/20 08/11/20 History amlodipine 10 mg PO DAILY #30 tab 08/11/20 Unknown Rx benzonatate 100 mg PO Q4H PRN 08/11/20 08/11/20 08/11/20 History bumetanide 1 mg PO DAILY@0800 08/11/20 08/11/20 08/11/20 History buspirone 10 mg PO BID@0800,2200 08/11/20 08/11/20 08/11/20 History cefdinir 300 mg PO BID@0800,2200 08/11/20 08/11/20 08/11/20 History losartan 100 mg PO DAILY@0800 08/11/20 08/11/20 08/11/20 History propranolol 60 mg PO DAILY 08/11/20 08/11/20 08/11/20 History Allergies Allergy/AdvReac Type Severity Reaction Status Date / Time codeine Allergy Unknown Verified 05/01/20 10:44 furosemide [From Lasix] Allergy ADV-Weaknes Verified 08/11/20 20:13 s sulfamethoxazole Allergy Unknown Verified 05/01/20 10:44 [From Septra] trimethoprim [From Septra] Allergy Unknown Verified 05/01/20 10:44 PFSH Acute PFSH: Medical History (Updated 08/12/20 @ 00:49 by Danie Calderon MD) Anxiety Hypertension Sleep apnea Type 1 diabetes mellitus Surgical History H/O hand surgery Family History Mother Diabetes Type 1 diabetes and CHF Other CAD (coronary artery disease) Social History Smoking and tobacco status: current every day smoker cigarettes Packs smoked per day: 1 Years cigarettes smoked: 15 [ Other cigarette details: Also chews tobacco ] Alcohol intake: current Alcohol intake frequency: holidays/special occasions only Substance/Drug Use: never Housing: House Vitals/I&O/Wt Last Vital Signs Temp 99.2 F 08/11/20 16:53 Pulse 102 H 08/11/20 21:30 Resp 32 H 08/11/20 21:30 BP 170/107 08/11/20 21:30 Pulse Ox 95 08/11/20 21:30 Weight last 48 hrs Weight 117.027 kg Physical Exam Narrative: EXAM NARRATIVE: Young male Morbidly obese Tachycardic and drowsy after getting Ativan Currently saturating well on 3 to nasal cannula, has signs of sleep apnea S1, S2 signs of heart failure, No murmur appreciated Abdomen soft, distended, visceral obesity, no signs of peritonitis, bowel sound present Lower extremity 2+ pitting edema bilaterally with multiple tick bites Bibasilar breath sounds without active rhonchi, mild coarse crackles at the bases no active wheezing No acute respiratory distress Patient is drowsy after getting Ativan Seems to have poor insight, flat affect Data : 08/11/20 17:10 08/11/20 17:10 Micro: Microbiology 08/11/20 17:30 Blood Culture - Preliminary Blood SPECIMEN COLLECTED 08/11/20 17:30 Blood Culture - Preliminary Blood SPECIMEN COLLECTED A&P Assessment and plan (1) Hypertensive emergency: Status: Acute (2) Type 1 diabetes mellitus: Status: Acute (3) New onset of congestive heart failure: Status: Acute (4) Microcytic anemia: Status: Acute (5) RADHA (acute kidney injury): Status: Acute (6) Acute respiratory failure with hypoxia: Status: Acute Additional A&P Information Hypertensive emergency Worsening pulmonary edema, new onset CHF, initial blood pressure 180/105mmhg No active chest pain, shortness of breath improved after getting Ativan, he received 60 mg of IV Lasix, hydralazine 20 mg IV push, metoprolol 5 mg x 2, Bumex 2 mg IV and amlodipine 10 mg Currently he is on Cardene drip for which he will be transferred to ICU, requested renin aldosterone level, and renal arterial ultrasound New onset CHF Patient is denying use of IV drugs, no active chest pain no previous history of PA Would request echo in the morning, patient is allergic to Lasix, will start him on Bumex Obtain drug screen, TSH EKG not showing ischemic or infarctive change, troponin 47 Microcytic anemia: We will check iron studies, previous hemoglobin 12.2 No active bleeding Acute kidney injury most likely secondary to cardiorenal/prerenal etiology Anticipate improvement with diuresis Acute hypoxic failure Has history of sleep apnea, this most likely is hypoventilation due to use of Ativan in the ER Monitor oxygen saturation in the ICU, Although he has tachycardia and leukocytosis I do not see any evidence of b acterial/viral pneumonia on his pulmonary imaging is lung CT scan is consistent with vascular congestion and pulmonary edema with bilateral pleural effusion secondary to CHF exacerbation, my threshold to start antibiotics will be low if he starts spiking fever overnight Full code Cardiac diet DVT prophylaxis Heparin Attestations Medical Necessity Statement*: Anticipating stay in the hospital course more than 2 midnights continued work-up for hypertensive emergency, CHF in such young age, requesting renin/aldosterone level Time Spent in Patient Care: (>than 50% of time spent in counselling and/or direct pt care on unit) . 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
[2020-08-11] MEDS: iohexol 350 mg/mL 100 mL Btl IV (23:30)
[2020-08-11] MEDS: nicardipine 20 MG/200 ML PREMIX 50 MG IV (23:31)
[2020-08-12] VITALS (58 sets, daily range): BP systolic 113–189; BP diastolic 52–101; PULSE 78–120; RESP 8–39; TEMP 37.4–37.9; O2SAT 87–98
--- NOTE | 2020-08-12 01:37 | USCV_ITS ---
Maximiliano Jack Age: 30 Gender: M : 1990 Exam Date: 08/12/2020 09:07 Ordering Phys: Danie Calderon MD Technologist: Eliza Mccabe Exam Location: [facility] [place] Indication: New onset CHF BP: 125 / 58 HR: 94 Rhythm: Sinus Technical Quality: Adequate MEASUREMENTS (Male / Female) Normal Values 2D ECHO LV Diastolic Diameter PLAX 5.9 cm 4.2 - 5.9 / 3.9 - 5.3 cm LV Systolic Diameter PLAX 4.6 cm LV Chamber Size 4.6 cm IVS Diastolic Thickness 1.6 cm 0.6 - 1.0 / 0.6 - 0.9 cm IVS Systolic Thickness 1.8 cm LVPW Diastolic Thickness 1.2 cm 0.6 - 1.0 / 0.6 - 0.9 cm LVPW Systolic Thickness 1.4 cm RV Chamber Size 3.6 cm LVOT Diameter 2.1 cm LV Ejection Fraction 2D Teich 41.8 % LV Ejection Fraction MOD 2C 48.7 % LV Ejection Fraction 2C AL 49.8 % LA Diameter 3.9 cm LA Width 3.2 cm LA Height 4.7 cm RA Width 3.2 cm RA Height 4.2 cm Aorta at Sinotubular Diameter 2.2 cm M-MODE LV Diastolic Diameter MM 6.0 cm 4.2 - 5.9 / 3.9 - 5.3 cm LV Systolic Diameter MM 4.6 cm LV Ejection Fraction MM Teich 47.0 % IVS Diastolic Thickness MM 1.1 cm 0.6 - 1.0 / 0.6 - 0.9 cm IVS Systolic Thickness MM 1.5 cm LVPW Diastolic Thickness MM 1.4 cm 0.6 - 1.0 / 0.6 - 0.9 cm LVPW Systolic Thickness MM 1.9 cm RV Diastolic Diameter MM 1.6 cm Aortic Annulus Diameter 2.8 cm LA Ao Ratio MM 1.6 MV E Point Septal Separation 1.4 cm DOPPLER AV Peak Velocity 161.0 cm/s LVOT Peak Velocity 152.0 cm/s AV Area Cont Eq vti 3.4 cm squared AV Area Cont Eq pk 3.4 cm squared MV Area PHT 4.3 cm squared Mitral E to A Ratio 2.5 MV E' Velocity 67.5 cm/s Mitral E to MV E' Ratio 11.3 Mitral E to LV E' Lateral Ratio 11.1 Mitral E to LV E' Septal Ratio 11.5 TV Peak E Velocity 71.0 cm/s Right Atrial Pressure 8.0 mmHg PV Peak Velocity 91.0 cm/s RV Acceleration Time 0.1 s RV Ejection Time 0.3 s RV AcT/ET 0.5 FINDINGS Left Ventricle Upper normal left ventricular cavity size. Upper normal left ventricular wall thickness. Normal left ventricular systolic function. Left ventricular ejection fraction is estimated at 55%. No regional wall motion abnormalities. Age-appropriate diastolic function. Right Ventricle Normal right ventricular size and systolic function. Tricuspid valve regurgitant jet is inadequate for estimation of right ventricular systolic pressure. Right Atrium Normal right atrial size. Right atrial pressure estimated at 8 mmHg. Left Atrium Normal left atrial size. Mitral Valve Structurally normal mitral valve. No mitral valve stenosis. No significant mitral valve regurgitation. Aortic Valve Structurally normal trileaflet aortic valve. No aortic valve stenosis. No aortic valve regurgitation. Tricuspid Valve Structurally normal tricuspid valve. No tricuspid valve stenosis. Trace tricuspid valve regurgitation. Pulmonic Valve Structurally normal pulmonic valve. No pulmonary valve stenosis. Trace pulmonary valve regurgitation. Pericardium No pericardial effusion. Aorta Normal size aortic root and proximal ascending aorta. Normal- sized inferior vena cava with less than 50% respirophasic variation. CONCLUSIONS 1. Upper normal left ventricular cavity size. Upper normal left ventricular wall thickness. Normal left ventricular systolic function. Left ventricular ejection fraction is estimated at 55%. No regional wall motion abnormalities. Age-appropriate diastolic function. 2. Normal right ventricular size and systolic function. 3. No significant valvular abnormality. 4. No pericardial effusion. 5. No prior similar studies to compare. Zoie Chaney MD (Electronically Signed) Final Date: 12 August 2020 15:18 S
[2020-08-12 01:42] LABS: Estmated Average Glucose 157; Hemoglobin A1C 7.1 % (4.0-6.0)
[2020-08-12] MEDS: nicardipine 20 MG/200 ML PREMIX 75 MG IV (01:54)
[2020-08-12 01:56] LABS: Iron 21 ug/dL (59-158); Percent Saturation 14.3 % (20-50); Total Iron Binding Capacity 146 mcg/dl; Unsaturated Iron Binding 125 ug/dL (112-347)
[2020-08-12 02:06] LABS: Glucose Point of Care 437 mg/dL (70-110)
[2020-08-12] MEDS: heparin 5,000 unit/mL INJ 1 mL 5000 UNIT SUBCUT ×3 (02:24→18:28)
[2020-08-12 02:28] LABS: Thyroid Stimulating Hormone 1.75 uIU/mL (0.27-4.20)
[2020-08-12 03:52] LABS: Basophils % 0.3 %; Eosinophils # 0.2 10^3/uL (0.0-0.8); Eosinophils % 1.4 %; Hematocrit 28.8 % (42.0-52.0); Hemoglobin 9.1 g/dL (11.7-16.6); Lymphocytes # 0.8 10^3/uL (0.8-4.8); Lymphocytes % 6.3 %; Mean Corpuscular HGB Conc 31.6 g/dL (30.0-36.0); Mean Corpuscular Hemoglobin 29.5 pg (28.0-34.0); Mean Corpuscular Volume 93.5 fL (80-94); Mean Platelet Volume 11.7 fL (7.4-10.4); Monocytes # 0.5 10^3/uL (0.2-0.9); Monocytes % 4.1 %; Neutrophils # 11.18 10^3/uL (1.8-7.7); Neutrophils % 87.4 %; Nucleated Red Blood Cells % 0 %; Platelet Count 153 10^3/cmm (130-400); Red Blood Count 3.08 10^6/uL (4.1-5.3); Red Cell Distribution Width 13.7 % (12.1-15.1); White Blood Count 12.8 10^3/uL (4.0-10.0)
[2020-08-12 04:17] LABS: Anion Gap 18.1 (5-19); Blood Urea Nitrogen 25 mg/dL (6-20); Calcium 7.8 mg/dL (8.5-10.5); Carbon Dioxide 21 mmol/L (22-29); Chloride 100 mmol/L (98-107); Glomerular Filtration Rate 44.5 mL/min (90-130); Glucose 409 mg/dL (65-115); Osmolality Calculated 302 mOsm/kg (285-295); Potassium 4.1 mmol/L (3.5-5.1); Sodium 135 mmol/L (136-145)
[2020-08-12] MEDS: albuterol 8 gm MDI 2 PUFF INHALATION (07:48)
[2020-08-12] MEDS: BuSPIRONE 10 mg Tablet PO ×2 (08:54→22:33)
[2020-08-12] MEDS: bumetanide 1 mg Tablet PO (08:54)
--- NOTE | 2020-08-12 11:50 | PC.NURSE ---
blood sugar am off pt scanner ... 214 blood sugar noon ....................204
[2020-08-12 12:18] LABS: Amphetamines Screen Urine Negative (Negative); Barbiturates Screen Urine Negative (Negative); Benzodiazepines Screen Urine Negative (Negative); Cocaine Screen Urine Negative (Negative); Opiate Screen Urine Negative (Negative); PCP Screen Urine Negative (Negative); THC Screen Urine Negative (Negative)
--- NOTE | 2020-08-12 12:47 | P.PN_ITS ---
Subjective Subjective: Interval history: In the last 24 hours: Nicardipine drip was turned off: Patient is complaining of shortness of breath with coughing, otherwise he denies any shortness of breath. He denies any chest pain, any nausea vomiting. He is tolerating diet well, has received 2 mg IV Bumex ER followed by 1 mg p.o. Bumex in the ICU, SCR has worsened to 1.8 as compared to 1.5 of admission and baseline serum creatinine of 1.2-1.3. He also had a low-grade temperature spike of100.3 Post admission. His other vitals and labs have been reviewed. Medications: Reviewed: Yes Vitals/I&O/Wt Last Vital Signs Temp 100.3 F H 08/12/20 00:30 Pulse 88 08/12/20 12:00 Resp 17 08/12/20 12:00 BP 131/68 08/12/20 12:00 Pulse Ox 95 08/12/20 12:00 08/11/20 08/12/20 08/12/20 22:59 06:59 14:59 Intake Total 323.750 / 323.750 Output Total 800 / 800 Balance 323.750 / 323.750 -800 / -800 Weight last 48 hrs Weight 117.027 kg Physical Exam Const: COMMON NORMALS: patient oriented x3 HENMT: COMMON NORMALS: normocephalic and atraumatic HEAD & SCALP: normocephalic and atraumatic Chest: CHEST: Yes Symmetrical chest wall rise Resp: COMMON NORMALS: normal respiratory effort EFFORT & INSPECTION: Yes symmetric chest movement OTHER: Minimal basal Crackles Present present in both Lungs lopez.No wheezing no ronchii. Cardio: COMMON NORMALS: regular rate, regular rhythm, S1 normal heart sound present, S2 normal heart sound present, No gallops present (Cardio), No murmurs present (Cardio), No rub (Cardio) and Peripheral pulses 2+ throughout RATE: regular rate RHYTHM: regular rhythm HEART SOUNDS: S1 normal heart sound present and S2 normal heart sound present PERIPHERAL PULSES: Peripheral pulses 2+ throughout GI: COMMON NORMALS: Normal to inspection, nondistended, normoactive bowel s ounds present, Soft to palpation, non-tender, No hepatosplenomegaly present and no masses AUSCULTATION: Yes normoactive bowel sounds PALPATION: Yes Soft to palpation and Yes No hepatosplenomegaly present RECTAL EXAM: Yes deferred Extremity: NARRATIVE EXTREMITY EXAM: 1 + B/L Pitting Edema present in both feet. Neuro: COMMON NORMALS: patient oriented x3 Data : 08/12/20 03:10 08/12/20 03:10 Micro: Microbiology 08/11/20 17:30 Blood Culture - Preliminary Blood SPECIMEN COLLECTED 08/11/20 17:30 Blood Culture - Preliminary Blood SPECIMEN COLLECTED A&P Assessment and plan (1) Pneumonia: Nonproductive Cough, worsening shortness of breath, temperature spike, infiltrate on chest x-ray as well as CT chest. Will start him on ceftriaxone and azithromycin. Monitor x-ray chest Supplemental oxygen as needed to maintain saturation greater than 92%. Status: Acute (2) Hypertension: Uncontrolled HTN . Given patient young age and qualifying definition for resistant Hypertension. He should be worked up 2ndry HTN.( Including and not limited to Renal artery stenosis) Will do renal artery doppler along with other causes of resistant HTN Continue Nefidipine 90 mg oral daily Losrtan 100 mg oral daily Propranolol 60 mg po daily Status: Acute (3) Heart failure: 2 D Echo done today : Upper normal left ventricular cavity size. Upper normal left ventricular wall thickness. Normal left ventricular systolic function. Left ventricular ejection fraction is estimated at 55%. No regional wall motion abnormalities. Age-appropriate diastolic function. No gross Valvular abnormality. Ac on chronic HFpEF : Given his age patient will need complete heart failure w ork up.Long standing uncontrolled HTN could be a possibility for HFpEF.Ischemia work up can be entertained. Other causes of diastolic heart failure including and not limited to infiltrative disease, can be done. Currently continue Bumex : 0.5 mg p.o. daily. Status: Acute (4) RADHA (acute kidney injury): Less likely CRS. As the RADHA is worsening with aggressive diuresis. SCR has worsened to 1.8 as compared to 1.5 of admission and baseline serum creatinine of 1.2-1.3. We will decide on Bumex oral dose of 0.5 mg, after seeing the BMP in the morning. Status: Acute (5) Acute respiratory failure with hypoxia: Status: Acute (6) COPD (chronic obstructive pulmonary disease): COPD diagnosis should be entertained. As the patient has extensive history of smoking. Status: Acute (7) Type 1 diabetes mellitus: Continue sliding-scale insulin. Monitor fingerstick glucose Diabetic diet Status: Acute Additional A&P Information DVT PPX: Code Status: Full Code Disposition :Home Anticipated;Discharge by 08/14 Attestations Medical Necessity Statement*: Patient needs to be in hospital for management of decompensated heart failure, pneumonia, RADHA, respiratory failure. Time Spent in Patient Care: 16 - 35 minutes Coding Level of Care Code Acute Front Counter Attendant for g Fwd Exam Detailed Diagnoses Pneumonia J18.9 Hypertension I10 Heart failure I50.9 RADHA (acute kidney injury) N17.9 Acute respiratory failure with hypoxia J96.01 COPD (chronic obstructive pulmonary disease) J44.9 Type 1 diabetes mellitus E10.9
[2020-08-12] MEDS: NIFEdipine ER (24 hr) 30 mg Tablet 90 MG PO (13:03)
[2020-08-12] MEDS: azithromycin 500 MG in sodium chloride 0.9% 250 ML 250 MG IV (13:04)
[2020-08-12] MEDS: cefTRIAXone 1,000 MG in sodium chloride 0.9% (plus) 50 ML 100 MG IV (13:51)
--- NOTE | 2020-08-12 15:50 | PC.NURSE ---
blood sugar down to [address] cummins
--- NOTE | 2020-08-12 21:00 | PC.NURSE ---
Patient uses Free style CGM. Patient is awake et alert et able to operate machine. Physician aware et ok with use for blood glucose readings.
--- NOTE | 2020-08-12 21:56 | PC.NURSE ---
Patient's blood glucose values have been trending low, requiring treatment for hypoglycemia. Notified Dr. Calderon. Will hold pm levemir dose. Patient's current blood glucose 66. Patient given orange juice et a sandwich. Will re-assess in 15 minutes.
--- NOTE | 2020-08-12 22:10 | PC.NURSE ---
Patient's BG 97 per CGM. Will continue to monitor.
[2020-08-12] MEDS: pantoprazole DR 40 mg Tablet PO (23:39)
[2020-08-13] VITALS (36 sets, daily range): BP systolic 110–157; BP diastolic 66–96; PULSE 66–100; RESP 0–34; O2SAT 89–97
[2020-08-13] MEDS: heparin 5,000 unit/mL INJ 1 mL 5000 UNIT SUBCUT ×3 (02:20→17:58)
[2020-08-13] MEDS: albuterol 8 gm MDI 2 PUFF INHALATION ×2 (04:27→20:25)
--- NOTE | 2020-08-13 07:31 | ECG_ITS ---
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 Measurements Intervals [place] Rate: 87 P: 38 MD: 100 QRS: 35 QRSD: 91 T: 68 QT: 396 QTc: 479 Interpretive Statements SINUS RHYTHM WITH SHORT MD INTERVAL NONSPECIFIC T-WAVE ABNORMALITY Compared to ECG 05/01/2020 10:53:44 Short MD interval now present T-wave abnormality now present Electronically Signed On 08-13-2020 20:55:12 AUTOMAT CAR ATTENDANT by Zoie Chaney M.D. [email or web address] [email or web address], [id number]
[2020-08-13 08:00] LABS: Glucose Point of Care 126 mg/dL (70-110)
[2020-08-13] MEDS: BuSPIRONE 10 mg Tablet PO ×2 (09:30→22:02)
[2020-08-13] MEDS: NIFEdipine ER (24 hr) 30 mg Tablet 90 MG PO (09:32)
[2020-08-13] MEDS: losartan 50 mg Tablet 100 MG PO (09:32)
--- NOTE | 2020-08-13 09:33 | PC.CHAP ---
Pastoral Care Encounter/Spiritual Assessment Type of Contact [] Declined nurse practitioner physician assistant visit [] Patient/Family/Request visit [] Outpatient visit [] Follow-up visit [] Physician referral [] Code/Alert [] Routine visit [] Staff referral [] Actively dying [] Patient sleeping [] Family support [] [] Out of room [] Palliative care [] [] Receiving care in room [] Pre-surgical visit [] Trauma [] Long length of stay [x] ICU visit [] Other: Relational/Emotional Strength [] Patient feels connected with others/family/visitors/staff [] Distress [] Loneliness/isolation [] Abandonment Spirituality of Patient [] Person of Amita [] Attends Baptism of their Amita [] Believes in Prayer [] Reads Bible or Christian materials [] There are Spiritual issues to be addressed Incendiary Powder Mixer Interventions [x] Prayer [] Active listening [] Non-anxious presence [] Spiritual/emotional support [] Crisis/trauma care [] Spiritual counseling [] Bereavement support [] Provided bereavement packet [] Provided Bible/devotional materials [] Provided toy/stuffed animal, coloring book to patient or family member [] Provided Communion [] Anointing/[place] [] Salvation [x] Completed spiritual assessment [] Other: Impact on Illness or Injury [] Angry [] Fearful [] Anxious [] Often cries [] Exhaustion [] Unable to work [] Unable to attend baptist [] Unable to walk/stand [] Unable to read [] Unable to drive [] Unable to eat/drink [] Unable to sleep [] Unable to be with family [] Patient intubated [] Other: Summary Time spent with patient
[2020-08-13] MEDS: pantoprazole DR 40 mg Tablet PO (09:34)
[2020-08-13 10:24] LABS: Troponin T (5th) Once 72 ng/L (0-15)
--- NOTE | 2020-08-13 10:29 | PM.PN ---
Subjective Subjective: Interval history: Maximiliano reports he feels better. Less short of breath. Still coughing some. No chest pain. History and physical as well as daily progress notes were reviewed Medications: Reviewed: Yes Vitals/I&O/Wt Last Vital Signs Temp 99.3 F 08/12/20 20:00 Pulse 85 08/13/20 08:27 Resp 18 08/13/20 08:27 BP 149/86 08/13/20 09:32 Pulse Ox 94 08/13/20 08:27 08/12/20 08/13/20 08/13/20 22:59 06:59 14:59 Intake Total 922 / 922 Output Total 500 / 1300 450 / 1750 Balance 422 / -378 -450 / -828 Weight last 48 hrs Weight 117.027 kg Physical Exam Narrative: EXAM NARRATIVE: General exam no apparent distress Cardiovascular regular rate and rhythm without murmur Lungs clear no wheezing or crackles. Diminished breath sounds are noted bilaterally. Abdomen is soft with positive bowel sounds. Extremities no cyanosis clubbing or edema Data : 08/12/20 03:10 08/12/20 03:10 Micro: Microbiology 08/11/20 17:30 Blood Culture - Preliminary Blood NEGATIVE TO DATE 08/11/20 17:30 Blood Culture - Preliminary Blood NEGATIVE TO DATE A&P Assessment and plan (1) Pneumonia: CTA demonstrated bibasilar consolidation, no evidence of pulmonary embolism Currently on Zithromax, ceftriaxone. Change Rocephin to Zosyn as he gives a history of vomiting several days prior to admission which could indicate aspiration with his CT appearance Wean oxygen as tolerated Rapid Covid negative. Check PCR. Status: Acute (2) Hypertension: Admission. Was on nicardipine drip. Patient's losartan, and propranolol were continued. Procardia XL was started at 90 mg a day. Blood pressure is improved. Echocardiogram demonstrated preserved EF TSH was normal. Renin and aldosterone levels were ordered and pending. Status: Acute (3) Heart failure: Overall EF normal. Hold further Bumex I am concerned he might have nephrotic syndrome. Check urinalysis, spot urine sodium and creatinine. This could also be causing significant fluid overload. Note his albumin was low on admission. Check EKG, troponin Status: Acute (4) RADHA (acute kidney injury): Repeat laboratory today Hold any further diuresis until this is reviewed. Status: Acute (5) Acute respiratory failure with hypoxia: Improved, wean oxygen as tolerated Status: Acute (6) COPD (chronic obstructive pulmonary disease): COPD diagnosis should be entertained. As the patient has extensive history of smoking. Steve Whitlock Status: Acute (7) Type 1 diabetes mellitus: Continue insulin regimen, as well sliding scale Status: Acute Additional A&P Information Full code Heparin for DVT prophylaxis Attestations Medical Necessity Statement*: Needs continued hospital stay for treatment of heart failure with preserved ejection fraction Coding Level of Care Code Acute Fashion Artist for [facility] Fwd Diagnoses Pneumonia J18.9 Hypertension I10 Heart failure I50.9 RADHA (acute kidney injury) N17.9 Acute respiratory failure with hypoxia J96.01 COPD (chronic obstructive pulmonary disease) J44.9 Type 1 diabetes mellitus E10.9
[2020-08-13 12:28] LABS: Basophils % 0.4 %; Eosinophils # 0.1 10^3/uL (0.0-0.8); Eosinophils % 1.7 %; Hemoglobin 9.5 g/dL (11.7-16.6); Lymphocytes # 1.8 10^3/uL (0.8-4.8); Lymphocytes % 22.2 %; Mean Corpuscular HGB Conc 31.7 g/dL (30.0-36.0); Mean Corpuscular Volume 94.6 fL (80-94); Mean Platelet Volume 11.6 fL (7.4-10.4); Monocytes # 0.7 10^3/uL (0.2-0.9); Monocytes % 8.8 %; Neutrophils # 5.42 10^3/uL (1.8-7.7); Neutrophils % 66.3 %; Nucleated Red Blood Cells % 0 %; Platelet Count 187 10^3/cmm (130-400); Red Blood Count 3.17 10^6/uL (4.1-5.3); Red Cell Distribution Width 13.6 % (12.1-15.1); White Blood Count 8.2 10^3/uL (4.0-10.0)
[2020-08-13 12:40] LABS: Add Urine Culture? No; Bacteria Urine TRACE /hpf; Bilirubin Urine Neg (Negative); Blood Urine 3+ (Negative); Glucose Urine UA 4+ (Normal); Ketones Urine Negative (Negative); Leukocyte Esterase Urine Negative (Negative); Nitrate Urine Negative (Negative); Protein Urine 3+ (Negative); Urine Appearance Clear (CLEAR); Urine Color Yellow (Yellow); Urobilinogen Urine Norm (Negative); pH Urine 7 (5-7)
[2020-08-13 12:41] LABS: Potassium, Radom Urine 13 mmol/L; Urine Creatinine 95 mg/dL (39-259); Urine Random Chloride 52 mmol/L; Urine Random Sodium 98 mmol/L
[2020-08-13 12:49] LABS: Alanine Aminotransferase 12 U/L (0-41); Albumin Level 2.5 g/dL (3.5-5.2); Alkaline Phosphatase 54 IU/L (40-130); Anion Gap 13.6 (5-19); Aspartate Amino Transferase 14 U/L (0-40); Blood Urea Nitrogen 27 mg/dL (6-20); Calcium 8.3 mg/dL (8.5-10.5); Carbon Dioxide 26 mmol/L (22-29); Chloride 104 mmol/L (98-107); Glomerular Filtration Rate 30.5 mL/min (90-130); Glucose 246 mg/dL (65-115); Osmolality Calculated 303 mOsm/kg (285-295); Potassium 3.6 mmol/L (3.5-5.1); Sodium 140 mmol/L (136-145); Total Bilirubin 0.4 mg/dL (0.15-1.2); Total Protein 5.5 g/dL (6.6-8.7)
[2020-08-13 12:53] LABS: Urine Protein Random 222 mg/dL
[2020-08-13] MEDS: azithromycin 500 MG in sodium chloride 0.9% 250 ML 250 MG IV (14:23)
--- NOTE | 2020-08-13 14:31 | DCPLANNER ---
grain operations manager had message to schedule follow up appointments for patient. grain operations manager faxed order to centralized scheduling. grain operations manager will call centralized scheduling for appointment information.
[2020-08-13] MEDS: piperacillin-tazobactam 3.375 GM in sodium chloride 0.9% (plus) 50 ML IV ×2 (17:58→23:39)
--- NOTE | 2020-08-13 18:59 | PC.NURSE ---
BS at dinner was 206
--- NOTE | 2020-08-13 21:11 | PC.NURSE ---
Patient checked blood sugar using implanted device and it was 90. At this time no insulin is indicated via the sliding scale. Patient requested apple juice, orange juice, and a sandwich. Will continue to monitor.
[2020-08-14] VITALS (21 sets, daily range): BP systolic 129–151; BP diastolic 67–91; PULSE 76–101; RESP 6–31; TEMP 36.7–37.1; O2SAT 88–95
[2020-08-14] MEDS: heparin 5,000 unit/mL INJ 1 mL 5000 UNIT SUBCUT ×3 (02:00→21:21)
[2020-08-14] MEDS: zolpidem 5 mg Tablet PO ×2 (03:47→21:21)
--- NOTE | 2020-08-14 07:43 | PM.PN ---
Subjective Subjective: Interval history: Maximiliano reports he is doing okay. Less short of breath. No chest pain. Still coughing quite a bit of stuff up. Medications: Reviewed: Yes Vitals/I&O/Wt Last Vital Signs Temp 98.7 F 08/14/20 05:00 Pulse 80 08/14/20 06:00 Resp 12 08/14/20 06:00 BP 136/75 08/14/20 06:00 Pulse Ox 95 08/14/20 06:00 08/13/20 08/14/20 08/14/20 22:59 06:59 14:59 Intake Total 270 / 950 Output Total 500 / 1100 400 / 1500 Balance -230 / -150 -400 / -550 Physical Exam Narrative: EXAM NARRATIVE: General exam no apparent distress Cardiovascular regular rate and rhythm without murmur Lungs no crackles. A few faint wheezes are noted. Abdomen is soft with positive bowel sounds. Extremities no cyanosis clubbing or edema Data : 08/13/20 09:01 08/13/20 09:01 A&P Assessment and plan (1) Pneumonia: CTA demonstrated bibasilar consolidation, no evidence of pulmonary embolism Currently on Zithromax, ceftriaxone. Change Rocephin to Zosyn as he gives a history of vomiting several days prior to admission which could indicate aspiration with his CT appearance. Discontinue Zithromax at this time. Wean oxygen as tolerated Await Covid PCR Status: Acute (2) Hypertension: Admission. Was on nicardipine drip. Patient's losartan, and propranolol were continued. We will hold losartan now secondary to worsening renal function Procardia XL was started at 90 mg a day. Blood pressure is improved. Echocardiogram demonstrated preserved EF TSH was normal. Renin and aldosterone levels were ordered and pending. Status: Acute (3) Heart failure: Overall EF normal. I held Bumex after evaluating the patient yesterday. I am concerned he might have nephrotic syndrome. Check urinalysis, spot urine sodium and creatinine. This could also be causing significant fluid overload. Note his albumin was low on admission. On urine studies he has quite a bit of proteinuria but it is not quite nephrotic range. Check EKG, troponin Status: Acute (4) RADHA (acute kidney injury): Creatinine slightly worse today Diuresis has been held after my evaluation yesterday Nephrology consultation Add saline back at 50 cc an hour, pending further recommendations by nephrology Has underlying chronic kidney disease. Status: Acute (5) Acute respiratory failure with hypoxia: Improved, wean oxygen as tolerated Add incentive spirometry Status: Acute (6) COPD (chronic obstructive pulmonary disease): COPD diagnosis should be entertained. As the patient has extensive history of smoking. Status: Acute (7) Type 1 diabetes mellitus: Continue insulin regimen, as well sliding scale. Reduce long-acting insulin further secondary to renal dysfunction Status: Acute Additional A&P Information Full code Heparin for DVT prophylaxis Attestations Medical Necessity Statement*: Needs continued hospitalization for close follow-up of renal dysfunction, treatment of pneumonia with IV antibiotics. Coding Level of Care Code Acute Data Processing Consultant for [facility] Fwd Diagnoses Pneumonia J18.9 Hypertension I10 Heart failure I50.9 RADHA (acute kidney injury) N17.9 Acute respiratory failure with hypoxia J96.01 COPD (chronic obstructive pulmonary disease) J44.9 Type 1 diabetes mellitus E10.9
--- NOTE | 2020-08-14 08:20 | P.CONIM_ITS ---
Providers/Reason For Consult Consulting Physican/Specialty*: shayy garza md / telenephrology Reason for Consult*: RADHA, edema, proteinuria, htn Attending Physician: Kemar Akers MD Primary Care Provider: Alex Escamilla History of Present Illness History of Present Illness Maximiliano Jack is a 30 year old male IDDM sonce 16 yrs old- hgb a1c of 7.1. has htn. Recently inc sob and edema- was started on abx for pna and norvasc and bumex along w/ losartan. pt has known DM retinopathy. Pt complains that since abx and bumex- he had allergic reaction. he was more swollen, sob, cough. Pt came to ER at [facility] on 08-11-20 and admitted for htn urgency, acute on chronic diastolic dysfunction(CHF) exacerbation and pna. pt was given abx, diuretics, cardene drip. on admission- pt had a CTA. Pts baseline cr was 1.2 prior to admission. on 08/11 admission cr was 1.5, gulshan to 1.8 mg/dl on 08/12. cr up to 2.5 and rfenal was called. of note diuretics and losartan were held yesterday. Review of Systems General: Reports: 10 or more systems reviewed and unremarkable except in HPI and below Narrative: weak, swollen, sob, cough, blurry visison, minimal NSAID use, no palps, ++ edema, no GI issues. states good glucose control Meds/Allergies Home Medications and Allergies Home Medications Medication Instructions Recorded Confirmed Last Taken Type omeprazole 40 mg PO DAILY@0800 04/30/20 08/11/20 08/10/20 History Levemir FlexTouch U-100 Insuln 40 unit SUBCUT BID@0800,2200 08/11/20 08/11/20 08/10/20 History albuterol sulfate 2 puff INHALATION Q4H PRN 08/11/20 08/11/20 08/11/20 History amlodipine 10 mg PO DAILY #30 tab 08/11/20 Unknown Rx benzonatate 100 mg PO Q4H PRN 08/11/20 08/11/20 08/11/20 History bumetanide 1 mg PO DAILY@0800 08/11/20 08/11/20 08/11/20 History buspirone 10 mg PO BID@0800,2200 08/11/20 08/11/20 08/11/20 History cefdinir 300 mg PO BID@0800,2200 08/11/20 08/11/20 08/11/20 History losartan 100 mg PO DAILY@0800 08/11/20 08/11/20 08/11/20 History propranolol 60 mg PO DAILY 08/11/20 08/11/20 08/11/20 History Allergies Allergy/AdvReac Type Severity Reaction Status Date / Time codeine Allergy Unknown Verified 05/01/20 10:44 furosemide [From Lasix] Allergy ADV-Weaknes Verified 08/11/20 20:13 s sulfamethoxazole Allergy Unknown Verified 05/01/20 10:44 [From Septra] trimethoprim [From Septra] Allergy Unknown Verified 05/01/20 10:44 Current Medications Current Medications Generic Name Dose Route Start Last Admin Trade Name Freq PRN Reason Stop Dose Admin Albuterol Sulfate 2 puff 08/12/20 01:37 08/13/20 20:25 Albuterol 8 Gm Mdi INHALATION 2 puff Q4H PRN Administration Shortness Of Breath Buspirone HCl 10 mg 08/12/20 08:00 08/13/20 22:02 Buspirone 10 Mg Tablet PO 10 mg BID@0800,2200 BRITTANIE Administration Piperacillin Sod/Tazobactam 50 mls @ 12.5 mls/hr 08/13/20 08:00 08/14/20 07:55 Sod 3.375 gm/ Sodium Chloride IV Infused Q8H BRITTANIE Infusion Protocol Insulin Aspart 0 unit 08/12/20 08:00 08/14/20 07:55 Insulin Aspart 100 Unit/1 Ml SUBCUT Not Given WM&BEDTIME BRITTANIE Protocol Nifedipine 90 mg 08/12/20 12:40 08/13/20 09:32 Nifedipine Er (24 Hr) 30 Mg Tablet PO 90 mg DAILY BRITTANIE Administration Non-Formulary Medication 60 mg 08/12/20 09:00 08/13/20 09:34 Propranolol PO 60 mg DAILY BRITTANIE Administration Pantoprazole Sodium 40 mg 08/12/20 22:45 08/13/20 09:[address] 40 Mg Tablet PO 40 mg DAILY BRITTANIE Administration Zolpidem Tartrate 5 mg 08/14/20 02:56 08/14/20 03:47 Zolpidem 5 Mg Tablet PO 5 mg BEDTIME PRN Administration SLEEP PFSH Acute PFSH: Medical History (Updated 08/12/20 @ 15:58 by Zeb Negron MD) Anxiety Hypertension Sleep apnea Type 1 diabetes mellitus Surgical History H/O hand surgery Family History Mother Diabetes Type 1 diabetes and CHF Other CAD (coronary artery disease) Social History Smoking and tobacco status: current every day smoker cigarettes Packs smoked per day: 1 Years cigarettes smoked: 15 [ Other cigarette details: Also chews tobacco ] Alcohol intake: current Alcohol intake frequency: holidays/special occasions only Substance/Drug Use: never Housing: House Vitals/I&O/Wt Last Vital Signs Temp 98.7 F 08/14/20 05:00 Pulse 80 08/14/20 06:00 Resp 12 08/14/20 06:00 BP 136/75 08/14/20 06:00 Pulse Ox 95 08/14/20 06:00 08/13/20 08/14/20 08/14/20 22:59 06:59 14:59 Intake Total 270 / 950 50 / 50 Output Total 500 / 1100 400 / 1500 Balance -230 / -150 -400 / -550 50 / 50 Physical Exam Narrative: EXAM NARRATIVE: NARD in bed, VS noted- bp improved heent- nc/at, eomi, anicteric neck supple lung scattered wheezes heart reg, +s1, s2 abd soft, nt, nd, +BS ext b/l edema no rash neuro- a,a, o x 3 A&P Additional A&P Information 30 yr old man mild diastolic dysfunction, IDDM, + tob use, htn, CKD stage 2- 3.. here w/ pna, htn, edema, and developed RADHA 1. CKD stage 2-3= baseline cr 1.2- 1.3 from DM u/a w/ 3+ prot, 4+ gluc, 3+ blood -check serologies 2. RADHA- from new bumex, abx, losartan, some NSAID use, and CTA on admission- then diuresed in house, and lowered BP quickly. - hold ARB, diuretics, further contrast -allow BP to rise a little -also Q of infectious related GN or IgA nephropathy -high ur na on lop diuretics 3. edema- likely from DM- quantify proteinuria. given anemia- check spep and upep -check lipid profile 4. DM control 5. anemia eval- low iron sat will follow w/ you seen w/ RN Consult Attestations Medical Necessity Statement: radha Time Spent in Patient Care: Greater than 35 minutes Coding Level of Care Code Acute Drug Abuse Treatment Specialist for [employer]
--- NOTE | 2020-08-14 08:43 | US_ITS ---
WS: [id number] RENAL ULTRASOUND HISTORY: michela COMPARISON: None available. TECHNIQUE: 2-D and color Doppler imaging of the kidney submitted. Right kidney: 10.2 cm x 7.3 cm x 6.1 cm. Normal echogenicity with no hydronephrosis or mass. Left kidney: 11.5 cm x 5.4 cm x 6.6 cm. Normal echogenicity with no hydronephrosis or mass. Aorta: Normal. Urinary Bladder: Normal distention. US/US renal BI* [id number] IMPRESSION: Normal renal ultrasound.
--- NOTE | 2020-08-14 08:43 | USCV_ITS ---
Guero Maximiliano Age: 30 Gender: M : 1990 Exam Date: 08/14/2020 10:16 Ordering Phys: Husam Wilson MD Technologist: Kate Kowalski Exam Location: [facility] [place] Indication: EDEMA HISTORY: Lower extremity edema. PROCEDURES: Venous duplex imaging was performed in bilateral lower extremities. The following venous structures were evaluated: common femoral vein, profunda vein, proximal portion of the greater saphenous vein, superficial femoral vein, and the popliteal vein. In addition, the posterior tibial and peroneal trunk were evaluated. Serial compression, augmentation maneuvers, and spectral Doppler flow evaluation were performed. FINDINGS: Normal 2-D Doppler and augmentation and compressibility throughout the lower extremity venous structures. Additional imaging through the proximal calf veins also reveals no thrombus. Limited evaluation of the greater saphenous vein is patent with no thrombus. CONCLUSIONS No DVT bilateral lower extremities. Dr. Thea Trimble DO (Electronically Signed) Final Date: 14 August 2020 11:33 S
--- NOTE | 2020-08-14 08:43 | PC.CHAP ---
Pastoral Care Encounter/Spiritual Assessment Type of Contact [] Declined railroad switchman visit [] Patient/Family/Request visit [] Outpatient visit [] Follow-up visit [] Physician referral [] Code/Alert [] Routine visit [] Staff referral [] Actively dying [] Patient sleeping [] Family support [] [] Out of room [] Palliative care [] [] Receiving care in room [] Pre-surgical visit [] Trauma [] Long length of stay [x] ICU visit [] Other: Relational/Emotional Strength [] Patient feels connected with others/family/visitors/staff [] Distress [] Loneliness/isolation [] Abandonment Spirituality of Patient [] Person of Amita [] Attends Religious of their Amita [] Believes in Prayer [] Reads Bible or Sabianism materials [] There are Spiritual issues to be addressed Teller Manager Interventions [x] Prayer [] Active listening [] Non-anxious presence [] Spiritual/emotional support [] Crisis/trauma care [] Spiritual counseling [] Bereavement support [] Provided bereavement packet [] Provided Bible/devotional materials [] Provided toy/stuffed animal, coloring book to patient or family member [] Provided Communion [] Anointing/[place] [] Salvation [x] Completed spiritual assessment [] Other: Impact on Illness or Injury [] Angry [] Fearful [] Anxious [] Often cries [] Exhaustion [] Unable to work [] Unable to attend restorationism [] Unable to walk/stand [] Unable to read [] Unable to drive [] Unable to eat/drink [] Unable to sleep [] Unable to be with family [] Patient intubated [] Other: Summary Time spent with patient
[2020-08-14] MEDS: piperacillin-tazobactam 3.375 GM in sodium chloride 0.9% (plus) 50 ML IV ×3 (09:11→23:18)
[2020-08-14] MEDS: sodium chloride 0.9% 1,000 ML 50 ML IV (09:13)
[2020-08-14] MEDS: nicotine 21 mg Patch 1 PATCH TRANSDERMA (09:13)
[2020-08-14] MEDS: BuSPIRONE 10 mg Tablet PO ×2 (09:16→21:21)
[2020-08-14] MEDS: NIFEdipine ER (24 hr) 30 mg Tablet 90 MG PO (09:16)
--- NOTE | 2020-08-14 10:00 | USCV_ITS ---
Guero Maximiliano Age: 30 Gender: M : 1990 Exam Date: 08/14/2020 10:00 Ordering Phys: Husam Wilson MD Technologist: Kate Kowalski Exam Location: [facility] [place] Indication: HTN Aortic Velocity @ SMA (cm/s) 31.7 RIGHT KIDNEY LEFT KIDNEY Velocity (cm/s) Velocity (cm/s) Sys/Aviles Sys/Aviles Resistive Index Resistive Index 68.0 / 19.9 0.71 Proximal Renal Artery 53.6 / 13.1 0.76 75.2 / 12.2 0.84 Mid Renal Artery 76.3 / 15.6 0.80 50.0 / 17.5 0.65 Distal Renal Artery 69.3 / 21.5 0.69 53.9 / 13.9 0.74 Hilar 83.6 / 28.7 0.66 33.5 / 13.1 0.61 Upper Pole 36.3 / 13.3 0.63 29.0 / 7.7 0.74 Mid Pole 68.1 / 15.5 0.77 43.3 / 15.8 0.64 Lower Pole 41.4 / 11.1 0.73 2.40 Renal Aortic Ratio 2.41 Accleration Index (cm/sec2) 669.00 Hilar 1248.0 0 1964.0 Upper Pole 1306.0 0 0 574.00 Mid Pole 775.00 808.00 Lower Pole 903.00 110.6 Kidney Length (mm) 116.8 FINDINGS No evidence of abdominal aortic aneurysm. There is no evidence of hemodynamically significant right renal artery stenosis. There is no evidence of hemodynamically significant left renal artery stenosis. CONCLUSIONS There is no sonographic evidence of hemodynamically significant renal artery stenosis bilaterally. Dr. Thea Trimble DO (Electronically Signed) Final Date: 14 August 2020 11:31 S
--- NOTE | 2020-08-14 13:51 | PC.RESP ---
SMOKING CESSATION INFORMATION SENT TO PATIENT.
[2020-08-14 13:52] LABS: Complement C3 113 mg/dL (90-180)
[2020-08-14 14:39] LABS: Hepatitis B Surface Antigen Non-Reactive (Nonreactive); Hepatitis C Virus Antibody Non-Reactive (Nonreactive)
--- NOTE | 2020-08-14 15:58 | PC.NURSE ---
BLOOD GLUCOSE Patient with implanted glucometer. 0800 accu check - 55. Juice provided to patient prior to arrival of breakfast isauro. 1100 accu check - 109
--- NOTE | 2020-08-14 17:06 | PC.NURSE ---
1800 accu check - 85. Juice given before dinner tray.
[2020-08-14 20:33] LABS: Glucose Point of Care 160 mg/dL (70-110)
--- NOTE | 2020-08-14 21:05 | PC.NURSE ---
Patient requesting something for heartburn. Informed Dr Calderon and received telephone order for one time gi cocktail. RBVO
[2020-08-14] MEDS: lidocaine 2% viscous 15 ML, aluminum-mag hydrox-simethicon 30 ML, sucralfate oral liq 1 GM PO (21:19)
[2020-08-15] VITALS (11 sets, daily range): BP systolic 135–144; BP diastolic 80–93; PULSE 85–94; RESP 10–26; TEMP 36.6–37.2; O2SAT 87–94
[2020-08-15] MEDS: sodium chloride 0.9% 1,000 ML 50 ML IV (03:34)
[2020-08-15 04:08] LABS: Basophils % 0.4 %; Eosinophils # 0.1 10^3/uL (0.0-0.8); Eosinophils % 1.5 %; Hematocrit 28.7 % (42.0-52.0); Lymphocytes # 2.2 10^3/uL (0.8-4.8); Mean Corpuscular HGB Conc 31.4 g/dL (30.0-36.0); Mean Corpuscular Hemoglobin 29.3 pg (28.0-34.0); Mean Corpuscular Volume 93.5 fL (80-94); Mean Platelet Volume 11.2 fL (7.4-10.4); Monocytes # 0.6 10^3/uL (0.2-0.9); Neutrophils # 6.62 10^3/uL (1.8-7.7); Neutrophils % 68.9 %; Nucleated Red Blood Cells % 0 %; Platelet Count 227 10^3/cmm (130-400); Red Blood Count 3.07 10^6/uL (4.1-5.3); Red Cell Distribution Width 13.2 % (12.1-15.1); White Blood Count 9.6 10^3/uL (4.0-10.0)
[2020-08-15 04:32] LABS: Phosphorus 4.3 mg/dL (2.5-4.5)
[2020-08-15 04:34] LABS: Alanine Aminotransferase 12 U/L (0-41); Albumin Level 2.6 g/dL (3.5-5.2); Alkaline Phosphatase 48 IU/L (40-130); Anion Gap 12.9 (5-19); Aspartate Amino Transferase 13 U/L (0-40); Blood Urea Nitrogen 21 mg/dL (6-20); Calcium 7.9 mg/dL (8.5-10.5); Carbon Dioxide 24 mmol/L (22-29); Chloride 108 mmol/L (98-107); Globulin 2.7 g/dL (1.3-4.6); Glomerular Filtration Rate 30.5 mL/min (90-130); Glucose 134 mg/dL (65-115); Magnesium 1.7 mg/dL (1.7-2.3); Osmolality Calculated 297 mOsm/kg (285-295); Potassium 3.9 mmol/L (3.5-5.1); Sodium 141 mmol/L (136-145); Total Bilirubin 0.2 mg/dL (0.15-1.2); Total Protein 5.3 g/dL (6.6-8.7)
[2020-08-15 04:51] LABS: Calcium 7.9 mg/dL (8.5-10.5); Parathyroid Hormone 88.2 pg/mL (15-65)
--- NOTE | 2020-08-15 05:54 | PC.NURSE ---
Patient c/o heartburn again. Stated, I normally take omeprazole at home. Informed Dr Calderon and received order for Protonix 40mg PO BID.
[2020-08-15 06:46] LABS: Glucose Point of Care 142 mg/dL (70-110)
--- NOTE | 2020-08-15 06:48 | PM.PN ---
Subjective Subjective: Interval history: feels better. c/o swelling in RUE by iv site no n/v/f/c/johnson/d/dysuria Medications: Reviewed: Yes Medication Review Details: Current Medications Albuterol Sulfate (Albuterol 8 Gm Mdi) 2 puff INHALATION Q4H PRN PRN Reason: Shortness Of Breath Last Admin: 08/13/20 20:25 Dose: 2 puff Documented by: Buspirone HCl (Buspirone 10 Mg Tablet) 10 mg PO BID@0800,2200 [facility] Last Admin: 08/14/20 21:21 Dose: 10 mg Documented by: Dextrose (Dextrose 50% Syringe 50 Ml) 25 ml IVP ONCE PRN; Protocol PRN Reason: hypoglycemia protocol Dextrose (Dextrose 50% Syringe 50 Ml) 50 ml IVP PRN PRN; Protocol PRN Reason: hypoglycemia protocol Glucagon (Glucagon 1 Mg/Ml Inj 1 Ml) 1 mg IM ONCE PRN; Protocol PRN Reason: Adult Acute Hypoglycemia Prot. Heparin Sodium (Beef Lung) (Heparin 5,000 Unit/Ml Inj 1 Ml) 5,000 unit SUBCUT Q12H [facility] Last Admin: 08/14/20 21:21 Dose: 5,000 unit Documented by: Dextrose (D5w) 500 mls @ 100 mls/hr IV ONCE PRN; Protocol PRN Reason: Adult Acute Hypoglycemia Prot Piperacillin Sod/Tazobactam (Sod 3.375 gm/ Sodium Chloride) 50 mls @ 12.5 mls/hr IV Q8H BR[facility]IE; Protocol Last Infusion: 08/15/20 03:35 Dose: Infused Documented by: Sodium Chloride (Sodium Chloride 0.9%) 1,000 mls @ 50 mls/hr IV .Q20H [facility] Last Admin: 08/15/20 03:34 Dose: 50 mls/hr Documented by: Insulin Aspart (Insulin Aspart 100 Unit/1 Ml) 0 unit SUBCUT WM&BEDTIME [facility]; Protocol Last Admin: 08/14/20 21:21 Dose: 4 unit Documented by: Insulin Detemir (Insulin Detemir 100 Units/1 Ml) 10 unit SUBCUT BID@0800,2200 [facility] Last Admin: 08/14/20 21:21 Dose: 10 unit Documented by: Nicotine (Nicotine 21 Mg Patch) 1 patch TRANSDERMA DAILY [facility] Last Admin: 08/14/20 09:13 Dose: 1 patch Documented by: Nifedipine (Nifedipine Er (24 Hr) 30 Mg Tablet) 90 mg PO DAILY [facility] Last Admin: 08/14/20 09:16 Dose: 90 mg Documented by: Non-Formulary Medication (Propranolol) 60 mg PO DAILY [facility] Last Admin: 08/14/20 09:11 Dose: 60 mg Documented by: Pantoprazole Sodium (Pantoprazole Dr 40 Mg Tablet) 40 mg PO BID [facility] Zolpidem Tartrate (Zolpidem 5 Mg Tablet) 5 mg PO BEDTIME PRN PRN Reason: SLEEP Last Admin: 08/14/20 21:21 Dose: 5 mg Documented by: Vitals/I&O/Wt Last Vital Signs Temp 98.2 F 08/15/20 03:42 Pulse 87 08/15/20 03:42 Resp 16 08/15/20 03:42 BP 142/83 08/15/20 03:42 Pulse Ox 91 08/15/20 03:42 08/14/20 08/14/20 08/15/20 14:59 22:59 06:59 Intake Total 1150 / 1150 1140 / 2290 1587.5 / 3877.5 Output Total 600 / 600 700 / 1300 750 / 2050 Balance 550 / 550 440 / 990 837.5 / 1827.5 Physical Exam Narrative: EXAM NARRATIVE: NARD in bed, VS noted- bp stable heent- nc/at, eomi, anicteric neck supple lungs- dull bases, otherwise clear heart reg, +s1, s2, +KWAKU abd soft, nt, nd, +BS ext - minimal b/l leg edema mood normal no rashes RUE swollen neuro- a,a, o x 3 Data : 08/15/20 03:27 08/15/20 03:27 A&P Additional A&P Information 30 yr old man mild diastolic dysfunction, IDDM, + tob use, htn, CKD stage 2- 3.. here w/ pna, htn, edema, and developed RADHA 1. CKD stage 2-3= baseline cr 1.2- 1.3 from DM u/a w/ 3+ prot, 4+ gluc, 3+ blood -check serologies 2. RADHA- from new bumex, abx, losartan, some NSAID use, and CTA on admission- then diuresed in house, and lowered BP quickly. - cr appears to have stabilized -pt is feeling better -cont to hold ARB, diuretics, further contrast -allow BP to be a little high -also Q of infectious related GN or IgA nephropathy - serologies pending hep bs ab + he is immunized. no active hep b or c -high ur na on lop diuretics -SPEP pending pth 88- repeat in 6 weeks 3. edema- likely from DM- quantify proteinuria. given anemia- check spep and upep -check lipid profile 4. DM control 5. 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
--- NOTE | 2020-08-15 07:08 | PC.NURSE ---
Spoke with both Dr Akers and Dr Wilson and received order to discontinue NPO diet. Dr Wilson place new diet ordered.
[2020-08-15] MEDS: ondansetron 2 mg/ML SDV 2 mL 4 MG IVP ×2 (07:14→17:29)
--- NOTE | 2020-08-15 07:45 | PC.NURSE ---
patient resting in bed at this time. denies any needs at this time. dr kaur in room to discuss plan of care. possible discharge tomorrow. needs within reach, call light within reach.
[2020-08-15] MEDS: nicotine 21 mg Patch 1 PATCH TRANSDERMA (09:10)
[2020-08-15] MEDS: ferric gluconate 125 MG in sodium chloride 0.9% (100 ml) 100 ML 110 MG IV (09:10)
[2020-08-15] MEDS: pantoprazole DR 40 mg Tablet PO ×2 (09:11→17:29)
[2020-08-15] MEDS: heparin 5,000 unit/mL INJ 1 mL 5000 UNIT SUBCUT ×2 (09:11→21:03)
[2020-08-15] MEDS: BuSPIRONE 10 mg Tablet PO ×2 (09:11→21:03)
[2020-08-15] MEDS: piperacillin-tazobactam 3.375 GM in sodium chloride 0.9% (plus) 50 ML IV ×3 (09:11→23:07)
[2020-08-15] MEDS: NIFEdipine ER (24 hr) 30 mg Tablet 90 MG PO (09:11)
--- NOTE | 2020-08-15 11:02 | PM.PN ---
Subjective Subjective: Interval history: Maximiliano reports he is doing well. Not short of breath. Still coughing up some sputum. Medications: Reviewed: Yes Vitals/I&O/Wt Last Vital Signs Temp 98.9 F 08/15/20 10:48 Pulse 86 08/15/20 10:48 Resp 26 H 08/15/20 10:48 BP 141/80 08/15/20 10:48 Pulse Ox 90 08/15/20 10:48 08/14/20 08/15/20 08/15/20 22:59 06:59 14:59 Intake Total 1140 / 2290 1587.5 / 3877.5 Output Total 700 / 1300 750 / 2050 400 / 400 Balance 440 / 990 837.5 / 1827.5 -400 / -400 Physical Exam Narrative: EXAM NARRATIVE: General exam no apparent distress Cardiovascular regular rate and rhythm without murmur Lungs no crackles. No wheezes Abdomen is soft with positive bowel sounds. Extremities no cyanosis clubbing or edema Data : 08/15/20 03:27 08/15/20 03:27 A&P Assessment and plan (1) Pneumonia: CTA demonstrated bibasilar consolidation, no evidence of pulmonary embolism Currently on Zithromax, ceftriaxone. Change Rocephin to Zosyn as he gives a history of vomiting several days prior to admission which could indicate aspiration with his CT appearance. Discontinue Zithromax at this time. Wean oxygen as tolerated Covid PCR pending Status: Acute (2) Hypertension: Admission. Was on nicardipine drip. Patient's losartan, and propranolol were continued. Holding losartan secondary to renal function Procardia XL was started at 90 mg a day. Blood pressure is improved. Echocardiogram demonstrated preserved EF TSH was normal. Renin and aldosterone levels were ordered and pending. Status: Acute (3) Heart failure: Overall EF normal. I held Bumex after evaluating the patient yesterday. I am concerned he might have nephrotic syndrome. Check urinalysis, spot urine sodium and creatinine. This could also be causing significant fluid overload. Note his albumin was low on admission. On urine studies he has quite a bit of proteinuria but it is not quite nephrotic range. Appreciate nephrology consultation Status: Acute (4) RADHA (acute kidney injury): Creatinine appears to have stabilized Nephrology on board Discontinue saline repeat laboratory tomorrow Status: Acute (5) Acute respiratory failure with hypoxia: Improved, wean oxygen as tolerated Continue incentive spirometry Now on room air Status: Acute (6) COPD (chronic obstructive pulmonary disease): COPD diagnosis should be entertained. As the patient has extensive history of smoking. Status: Acute (7) Type 1 diabetes mellitus: Continue insulin regimen, as well sliding scale. Reduce long-acting insulin further secondary to renal dysfunction Status: Acute Additional A&P Information Full code Heparin for DVT prophylaxis Suspect he can be discharged home tomorrow if renal function improves. Attestations Medical Necessity Statement*: Needs continued hospitalization for close follow-up of renal function prior to discharge secondary to acute kidney injury. Coding Level of Care Code Acute [employer] Report Developer for [employer] Diagnoses Pneumonia J18.9 Hypertension I10 Heart failure I50.9 RADHA (acute kidney injury) N17.9 Acute respiratory failure with hypoxia J96.01 COPD (chronic obstructive pulmonary disease) J44.9 Type 1 diabetes mellitus E10.9
[2020-08-15 11:08] LABS: Glucose Point of Care 144 mg/dL (70-110)
[2020-08-15 13:02] LABS: Urine Creatinine 103 mg/dL (39-259)
[2020-08-15 14:18] LABS: Anti-Nuclear Antibody Screen NEGATIVE (NEGATIVE)
[2020-08-15 14:48] LABS: Anti-Double Strand DNA AB <1 IU/mL
[2020-08-15 16:48] LABS: Glucose Point of Care 134 mg/dL (70-110)
[2020-08-15 17:22] LABS: Total Volume, Urine 2200 mL
[2020-08-15 17:26] LABS: Total Volume Urine 2200 ml
--- NOTE | 2020-08-15 17:33 | PC.NURSE ---
patient stated that he could not eat right now because he was nauseated. zofran administered per order. no other needs identifed at this time. call light within reach.
[2020-08-15 17:53] LABS: Urine Total Protein 24 Hour 315.8 mg/dL (0-150)
[2020-08-15 18:10] LABS: Total Volume Urine 2200 ml
[2020-08-15 18:11] LABS: Creatinine, Urine (Cre Clear) 103 mg/dL (39-259)
[2020-08-15 18:12] LABS: Creatinine Clearance, Urine 66 mL/Min (97-137); Glomerular Filtration Rate 30.5 mL/min (90-130)
[2020-08-15 18:35] LABS: Coronavirus Test Green County Not Detected
--- NOTE | 2020-08-15 19:30 | PC.NURSE ---
Received report from LUKE Gaytan. Patient resting in bed watching tv. Patient is Covid negative. Fluids discontinued. Has Zosyn running. Noted patient to have some mild swelling to right arm only. Discussed medications tonight. Will provided snack when Levemir is administered. Patient reports low blood sugar during the night. Patient has self check device to right upper arm. Patient reports keeping track of his blood sugars pretty closely. Assessment completed as documented. No distress observed.
[2020-08-15 20:33] LABS: Glucose Point of Care 236 mg/dL (70-110)
[2020-08-15] MEDS: zolpidem 5 mg Tablet PO (21:03)
[2020-08-16] VITALS (16 sets, daily range): BP systolic 138–157; BP diastolic 84–97; PULSE 80–97; RESP 16–24; TEMP 36.5–37; O2SAT 86–94
[2020-08-16 04:23] LABS: Glucose Point of Care 243 mg/dL (70-110)
[2020-08-16] MEDS: ondansetron 2 mg/ML SDV 2 mL 4 MG IVP (06:03)
[2020-08-16 06:11] LABS: Basophils # 0.1 10^3/uL (0.0-0.1); Basophils % 0.5 %; Eosinophils # 0.1 10^3/uL (0.0-0.8); Eosinophils % 1.5 %; Hematocrit 30.5 % (42.0-52.0); Hemoglobin 9.4 g/dL (11.7-16.6); Lymphocytes # 2.4 10^3/uL (0.8-4.8); Lymphocytes % 24.7 %; Mean Corpuscular HGB Conc 30.8 g/dL (30.0-36.0); Mean Corpuscular Hemoglobin 29.5 pg (28.0-34.0); Mean Corpuscular Volume 95.6 fL (80-94); Mean Platelet Volume 11.3 fL (7.4-10.4); Monocytes # 0.5 10^3/uL (0.2-0.9); Monocytes % 5.6 %; Neutrophils # 6.46 10^3/uL (1.8-7.7); Neutrophils % 67.3 %; Nucleated Red Blood Cells % 0 %; Platelet Count 243 10^3/cmm (130-400); Red Blood Count 3.19 10^6/uL (4.1-5.3); Red Cell Distribution Width 13.2 % (12.1-15.1); White Blood Count 9.6 10^3/uL (4.0-10.0)
[2020-08-16 06:26] LABS: Glucose Point of Care 266 mg/dL (70-110)
[2020-08-16 06:40] LABS: Alanine Aminotransferase 16 U/L (0-41); Albumin Level 2.5 g/dL (3.5-5.2); Alkaline Phosphatase 53 IU/L (40-130); Anion Gap 13.3 (5-19); Aspartate Amino Transferase 16 U/L (0-40); Blood Urea Nitrogen 21 mg/dL (6-20); Calcium 8.5 mg/dL (8.5-10.5); Carbon Dioxide 23 mmol/L (22-29); Chloride 106 mmol/L (98-107); Glomerular Filtration Rate 30.5 mL/min (90-130); Glucose 277 mg/dL (65-115); Osmolality Calculated 297 mOsm/kg (285-295); Phosphorus 3.6 mg/dL (2.5-4.5); Potassium 5.3 mmol/L (3.5-5.1); Sodium 137 mmol/L (136-145); Total Bilirubin 0.3 mg/dL (0.15-1.2); Total Protein 5.5 g/dL (6.6-8.7)
--- NOTE | 2020-08-16 07:23 | PM.PN ---
Subjective Subjective: Interval history: nausea, vomiting. denies sob, edema, cp Medications: Reviewed: Yes Medication Review Details: Current Medications Albuterol Sulfate (Albuterol 8 Gm Mdi) 2 puff INHALATION Q4H PRN PRN Reason: Shortness Of Breath Last Admin: 08/13/20 20:25 Dose: 2 puff Documented by: Buspirone HCl (Buspirone 10 Mg Tablet) 10 mg PO BID@0800,2200 [facility] Last Admin: 08/15/20 21:03 Dose: 10 mg Documented by: Dextrose (Dextrose 50% Syringe 50 Ml) 25 ml IVP ONCE PRN; Protocol PRN Reason: hypoglycemia protocol Dextrose (Dextrose 50% Syringe 50 Ml) 50 ml IVP PRN PRN; Protocol PRN Reason: hypoglycemia protocol Glucagon (Glucagon 1 Mg/Ml Inj 1 Ml) 1 mg IM ONCE PRN; Protocol PRN Reason: Adult Acute Hypoglycemia Prot. Heparin Sodium (Beef Lung) (Heparin 5,000 Unit/Ml Inj 1 Ml) 5,000 unit SUBCUT Q12H [facility] Last Admin: 08/15/20 21:03 Dose: 5,000 unit Documented by: Dextrose (D5w) 500 mls @ 100 mls/hr IV ONCE PRN; Protocol PRN Reason: Adult Acute Hypoglycemia Prot Piperacillin Sod/Tazobactam (Sod 3.375 gm/ Sodium Chloride) 50 mls @ 12.5 mls/hr IV Q8H [facility]; Protocol Last Admin: 08/15/20 23:07 Dose: 12.5 mls/hr Documented by: Ferric Sodium Gluconate 125 mg (/ Sodium Chloride) 110 mls @ 110 mls/hr IV Q24H [facility] Stop: 08/22/20 08:59 Last Infusion: 08/15/20 10:10 Dose: Infused Documented by: Insulin Aspart (Insulin Aspart 100 Unit/1 Ml) 0 unit SUBCUT WM&BEDTIME [facility]; Protocol Last Admin: 08/15/20 21:04 Dose: Not Given Documented by: Insulin Detemir (Insulin Detemir 100 Units/1 Ml) 10 unit SUBCUT BID@0800,2200 [facility] Last Admin: 08/15/20 21:04 Dose: 10 unit Documented by: Nicotine (Nicotine 21 Mg Patch) 1 patch TRANSDERMA DAILY [facility] Last Admin: 08/15/20 09:10 Dose: 1 patch Documented by: Nifedipine (Nifedipine Er (24 Hr) 30 Mg Tablet) 90 mg PO DAILY [facility] Last Admin: 08/15/20 09:11 Dose: 90 mg Documented by: Non-Formulary Medication (Propranolol) 60 mg PO DAILY [facility] Last Admin: 08/15/20 09:11 Dose: 60 mg Documented by: Ondansetron HCl (Ondansetron 2 Mg/Ml Sdv 2 Ml) 4 mg IVP Q6H PRN PRN Reason: NAUSEA AND VOMITING Last Admin: 08/16/20 06:03 Dose: 4 mg Documented by: Pantoprazole Sodium (Pantoprazole Dr 40 Mg Tablet) 40 mg PO BID [facility] Last Admin: 08/15/20 17:29 Dose: 40 mg Documented by: Zolpidem Tartrate (Zolpidem 5 Mg Tablet) 5 mg PO BEDTIME PRN PRN Reason: SLEEP Last Admin: 08/15/20 21:03 Dose: 5 mg Documented by: Vitals/I&O/Wt Last Vital Signs Temp 98.1 F 08/15/20 19:36 Pulse 92 08/16/20 02:56 Resp 24 H 08/16/20 02:56 BP 138/84 08/16/20 02:56 Pulse Ox 91 08/16/20 02:56 08/15/20 08/16/20 08/16/20 22:59 06:59 14:59 Intake Total 50 / 210 Output Total 250 / 650 325 / 975 Balance -200 / -440 -325 / -765 Physical Exam Narrative: EXAM NARRATIVE: NARD in bed, VS noted- bp stable heent- nc/at, eomi, anicteric neck supple lungs- dull bases, otherwise clear heart reg, +s1, s2, +KWAKU abd soft, nt, nd, +BS ext - minimal b/l leg edema RUE minimal edema, non tender mood normal no rashes RUE swollen neuro- a,a, o x 3 Data : 08/16/20 05:01 08/16/20 05:01 A&P Additional A&P Information 30 yr old man mild diastolic dysfunction, IDDM, + tob use, htn, CKD stage 2- 3.. here w/ pna, htn, edema, and developed RADHA 1. CKD stage 2-3= baseline cr 1.2- 1.3 from DM u/a w/ 3+ prot, 4+ gluc, 3+ blood -check serologies 2. RADHA- baseline cr 1.3 now 2.5- odd for DM nephropathy to progress so rapidly =etiology of RADHA felt to be from bumex, abx, losartan, some NSAID use, and CTA on admission- then diuresed in house, and lowered BP quickly on admission. - cr stable -pt is feeling better -cont to hold ARB, further contrast -BP now stable -also Q of infectious related GN or IgA nephropathy - serologies - OTONIEL, Anti ds DNA, complements normal hep bs ab + he is immunized. no active hep b or c -high ur na on lop diuretics -SPEP / UPEP pending pth 88- repeat in 6 weeks -as hypoxic, will start lasix -if renal fxn dose not improve, consider renal biopsy next week 3. edema- likely from DM- quantify proteinuria. given anemia- check spep and upep -check lipid profile -start low dose bumex- pt denies allergy- and states he took lasix/ bu,ex at home fluid restrict 4. DM control 5. 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
[2020-08-16] MEDS: BuSPIRONE 10 mg Tablet PO ×2 (07:43→20:50)
[2020-08-16] MEDS: heparin 5,000 unit/mL INJ 1 mL 5000 UNIT SUBCUT ×2 (07:44→20:49)
[2020-08-16 08:27] LABS: PROTEIN, TOTAL 4.9 g/dL (6.1-8.1)
[2020-08-16] MEDS: ferric gluconate 125 MG in sodium chloride 0.9% (100 ml) 100 ML 110 MG IV (08:52)
[2020-08-16] MEDS: NIFEdipine ER (24 hr) 30 mg Tablet 90 MG PO (08:55)
[2020-08-16 08:56] LABS: Chol HDL Ratio 5.82 mg/dL (1.0-5.00); Cholesterol 192 mg/dL (0-200); HDL Cholesterol 33 mg/dL (60-100); LDL Cholesterol Calculated 134 mg/dL (50-129); LDL HDL Ratio 4.06 RATIO (0.00-3.22); Triglycerides 124 mg/dL (0-150)
[2020-08-16] MEDS: nicotine 21 mg Patch 1 PATCH TRANSDERMA (08:56)
[2020-08-16] MEDS: pantoprazole DR 40 mg Tablet PO ×2 (08:56→17:55)
[2020-08-16] MEDS: albuterol 8 gm MDI 2 PUFF INHALATION ×3 (09:21→20:58)
[2020-08-16] MEDS: bumetanide 0.25 mg/mL SDV 4 mL 1 MG IV (09:56)
[2020-08-16] MEDS: piperacillin-tazobactam 3.375 GM in sodium chloride 0.9% (plus) 50 ML IV ×3 (09:57→23:04)
[2020-08-16 11:23] LABS: Glucose Point of Care 206 mg/dL (70-110)
[2020-08-16 15:32] LABS: ALBUMIN 2.4 g/dL (3.8-4.8); ALPHA 1 GLOBULIN 0.3 g/dL (0.2-0.3); ALPHA 2 GLOBULIN 0.7 g/dL (0.5-0.9); BETA 1 GLOBULIN 0.3 g/dL (0.4-0.6); BETA 2 GLOBULIN 0.4 g/dL (0.2-0.5); GAMMA GLOBULIN 0.9 g/dL (0.8-1.7)
[2020-08-16 16:38] LABS: CREATININE, 24 HOUR URINE 2.24 g/24 h (0.50-2.15); PROTEIN, TOTAL, 24 HR UR 7216 mg/24 h (<150); Protein/Creatinine Ratio 3.216 (< OR = 0.114); Protein/Creatinine Ratio 3216 mg/g creat (< OR = 114)
[2020-08-16 17:19] LABS: Glucose Point of Care 86 mg/dL (70-110)
--- NOTE | 2020-08-16 19:59 | PM.PN ---
Subjective Subjective: Interval history: He is doing about the same. Says he had to be restarted on oxygen this morning. Did not feel particularly short of breath. No chest pain or pressure. No cough. Vitals/I&O/Wt Last Vital Signs Temp 97.9 F 08/16/20 19:37 Pulse 88 08/16/20 19:37 Resp 20 H 08/16/20 19:37 BP 153/92 08/16/20 19:37 Pulse Ox 93 08/16/20 19:37 08/16/20 08/16/20 08/16/20 06:59 14:59 22:59 Intake Total 50 / 260 950 / 950 460 / 1410 Output Total 325 / 975 1100 / 1100 375 / 1475 Balance -275 / -715 -150 / -150 85 / -65 Physical Exam Const: COMMON NORMALS: no acute distress and patient oriented x3 HENMT: COMMON NORMALS: oropharynx normal Neck/C-Spine: COMMON NORMALS: no JVD Resp: COMMON NORMALS: normal respiratory effort and clear to auscultation bilaterally AUSCULTATION: clear to auscultation bilaterally Cardio: COMMON NORMALS: no JVD, regular rhythm, S1 normal heart sound present, S2 normal heart sound present and No murmurs present (Cardio) RHYTHM: regular rhythm HEART SOUNDS: S1 normal heart sound present and S2 normal heart sound present GI: COMMON NORMALS: Normal to inspection, nondistended, normoactive bowel sounds present, Soft to palpation and non-tender PALPATION: Yes Soft to palpation Extremity: COMMON NORMALS: no joint enlargement GENERAL: Yes edema (1+) Neuro: COMMON NORMALS: patient oriented x3 and moves all extremities Skin: COMMON NORMALS: no rashes or lesions noted GENERAL SKIN EXAM: no rashes or lesions noted Data : 08/16/20 05:01 08/16/20 05:01 Micro: Microbiology 08/11/20 17:30 Blood Culture - Final Blood NO GROWTH AFTER 5 DAYS 08/11/20 17:30 Blood Culture - Final Blood NO GROWTH AFTER 5 DAYS A&P Assessment and plan (1) Pneumonia: Again hypoxic this morning. Requiring 2 L nasal cannula. Diuretic restarted by nephrology. Appreciate recommendations. Continue zosyn with concern for aspiration pneumonia. CTA demonstrated bibasilar consolidation, no evidence of pulmonary embolism Wean oxygen as tolerated Covid PCR negative. Status: Acute (2) Hypertension: Admission. Was on nicardipine drip. Patient's losartan, and propranolol were continued. Holding losartan secondary to renal function Procardia XL was started at 90 mg a day. Blood pressure is improved. Echocardiogram demonstrated preserved EF TSH was normal. Renin and aldosterone levels were ordered and pending. Status: Acute (3) Heart failure: Overall EF normal. Diuretic resumed. Monitor I&O. VOlume status. Appreciate nephrology consultation Status: Acute (4) RADHA (acute kidney injury): Creatinine appears to have stabilized, but no improvement today. Pending serology studies. Appreciate nephrology recommendations. If no improvement may require renal biopsy. Status: Acute (5) Acute respiratory failure with hypoxia: Improved, wean oxygen as tolerated Continue incentive spirometry Now on room air Status: Acute (6) COPD (chronic obstructive pulmonary disease): COPD diagnosis should be entertained. As the patient has extensive history of smoking. Status: Acute (7) Type 1 diabetes mellitus: Continue insulin regimen, as well sliding scale. Continue detemir without increase for now. Glucose as low as 86 this evening. Status: Acute Additional A&P Information Full code Heparin for DVT prophylaxis Attestations Medical Necessity Statement*: Continue admission for assessment management of acute kidney injury, hypoxia, pneumonia, congestive heart failure. Coding Level of Care Code Acute Lead Software Tester for [facility] Diagnoses Pneumonia J18.9 Hypertension I10 Heart failure I50.9 RADHA (acute kidney injury) N17.9 Acute respiratory failure with hypoxia J96.01 COPD (chronic obstructive pulmonary disease) J44.9 Type 1 diabetes mellitus E10.9
[2020-08-16 20:45] LABS: Glucose Point of Care 168 mg/dL (70-110)
[2020-08-17] VITALS (9 sets, daily range): BP systolic 116–150; BP diastolic 69–96; PULSE 66–93; RESP 14–23; TEMP 36.8–36.9; O2SAT 89–95
[2020-08-17 05:40] LABS: Basophils # 0.1 10^3/uL (0.0-0.1); Basophils % 0.6 %; Eosinophils # 0.2 10^3/uL (0.0-0.8); Eosinophils % 1.9 %; Hematocrit 28.5 % (42.0-52.0); Hemoglobin 9.1 g/dL (11.7-16.6); Lymphocytes # 2.7 10^3/uL (0.8-4.8); Lymphocytes % 22.9 %; Mean Corpuscular HGB Conc 31.9 g/dL (30.0-36.0); Mean Corpuscular Hemoglobin 30.2 pg (28.0-34.0); Mean Corpuscular Volume 94.7 fL (80-94); Mean Platelet Volume 11.8 fL (7.4-10.4); Monocytes # 0.7 10^3/uL (0.2-0.9); Monocytes % 5.5 %; Neutrophils # 8.19 10^3/uL (1.8-7.7); Neutrophils % 68.7 %; Nucleated Red Blood Cells % 0 %; Platelet Count 220 10^3/cmm (130-400); Red Blood Count 3.01 10^6/uL (4.1-5.3); White Blood Count 11.9 10^3/uL (4.0-10.0)
--- NOTE | 2020-08-17 06:04 | PC.NURSE ---
Patient has no complaints at this time. Will monitor.
[2020-08-17 06:40] LABS: Glucose Point of Care 299 mg/dL (70-110)
[2020-08-17] MEDS: heparin 5,000 unit/mL INJ 1 mL 5000 UNIT SUBCUT (07:38)
[2020-08-17] MEDS: piperacillin-tazobactam 3.375 GM in sodium chloride 0.9% (plus) 50 ML IV (07:38)
[2020-08-17] MEDS: BuSPIRONE 10 mg Tablet PO (07:38)
[2020-08-17 07:47] LABS: Alanine Aminotransferase 13 U/L (0-41); Albumin Level 2.6 g/dL (3.5-5.2); Alkaline Phosphatase 55 IU/L (40-130); Blood Urea Nitrogen 19 mg/dL (6-20); Calcium 8.9 mg/dL (8.5-10.5); Carbon Dioxide 23 mmol/L (22-29); Chloride 103 mmol/L (98-107); Globulin 3.4 g/dL (1.3-4.6); Glomerular Filtration Rate 29.1 mL/min (90-130); Glucose 302 mg/dL (65-115); Magnesium 1.9 mg/dL (1.7-2.3); NT Pro B Type Natriuretic Pept 4825 pg/mL (0-125); Osmolality Calculated 294 mOsm/kg (285-295); Phosphorus 3.9 mg/dL (2.5-4.5); Sodium 135 mmol/L (136-145); Total Bilirubin 0.2 mg/dL (0.15-1.2)
[2020-08-17 07:50] LABS: Anion Gap 14.1 (5-19); Potassium 5.1 mmol/L (3.5-5.1)
[2020-08-17] MEDS: ferric gluconate 125 MG in sodium chloride 0.9% (100 ml) 100 ML 110 MG IV (07:50)
[2020-08-17 07:51] LABS: Aspartate Amino Transferase 14 U/L (0-40)
[2020-08-17] MEDS: albuterol 8 gm MDI 2 PUFF INHALATION (07:53)
--- NOTE | 2020-08-17 08:46 | PM.PN ---
Subjective Subjective: Interval history: feels much better. no urine complaints. anxious for discharge Medications: Reviewed: Yes Vitals/I&O/Wt Last Vital Signs Temp 98.4 F 08/17/20 03:57 Pulse 87 08/17/20 07:57 Resp 18 08/17/20 07:54 BP 144/90 08/17/20 03:57 Pulse Ox 92 08/17/20 07:54 08/16/20 08/17/20 08/17/20 22:59 06:59 14:59 Intake Total 460 / 1410 350 / 1760 Output Total 375 / 1475 1125 / 2600 Balance 85 / -65 -775 / -840 Data : 08/17/20 05:04 08/17/20 06:50 Other Labs: 24 hour urine protien 7216 mg Micro: Microbiology 08/11/20 17:30 Blood Culture - Final Blood NO GROWTH AFTER 5 DAYS 08/11/20 17:30 Blood Culture - Final Blood NO GROWTH AFTER 5 DAYS US Vascular: Radiologist's impression: There is no sonographic evidence of hemodynamically significant renal artery stenosis bilaterally. US: Radiologist's impression: Right kidney: 10.2 cm x 7.3 cm x 6.1 cm. Normal echogenicity with no hydronephrosis or mass. Left kidney: 11.5 cm x 5.4 cm x 6.6 cm. Normal echogenicity with no hydronephrosis or mass. A&P Additional A&P Information Impression: 1. Acute kidney injury, contrast + ATN, renal function stable, good urine output 2. Nephrotic range proteinuria most likely due to diabetic nephropathy 3. Anemia, receiving IV iron, Hb stable 4. Diabetes Recommendation: Stable for discharge from renal standpoint. Needs outpatient nephrology follow-up. Attestations Medical Necessity Statement*: per primary service Time Spent in Patient Care: 16 - 35 minutes Coding Level of Care Code Acute Anesthesiologist And Critical Care for [employer]
[2020-08-17] MEDS: nicotine 21 mg Patch 1 PATCH TRANSDERMA (09:32)
[2020-08-17] MEDS: bumetanide 0.25 mg/mL SDV 4 mL 1 MG IV (09:32)
[2020-08-17] MEDS: NIFEdipine ER (24 hr) 30 mg Tablet 90 MG PO (09:32)
[2020-08-17] MEDS: pantoprazole DR 40 mg Tablet PO (09:33)
[2020-08-17 11:09] LABS: Glucose Point of Care 213 mg/dL (70-110)
--- NOTE | 2020-08-17 15:26 | PM.DCS ---
Discharge Providers Date of Admission: 08/11/20 23:10 Date of Discharge: August 17, 2020 Attending Provider at Admission: Danie Calderon MD Attending Provider at Discharge: Reji Avila Primary Care Provider: Alex Escamilla Diagnoses at Discharge Discharge Diagnosis (1) Pneumonia: Status: Acute (2) Hypertension: Status: Acute (3) Heart failure: Status: Acute (4) RADHA (acute kidney injury): Status: Acute (5) Acute respiratory failure with hypoxia: Status: Acute (6) COPD (chronic obstructive pulmonary disease): Status: Acute (7) Type 1 diabetes mellitus: Status: Acute (8) Microcytic anemia: Status: Acute Reason for Visit Reason for Visit: COUGH/ABD AND LEG SWELLING Hospital Course Hospital Course Pleasant 30-year-old gentleman presented with shortness of breath, on presentation with noted hypertensive emergency, new onset CHF, hypoxic respite failure, with bilateral basilar consolidation on CT angiogram chest of presentation, initially treated for CHF, diuresis with IV Bumex, however, also had a temperature spike up to 100.3 Fahrenheit, and was started on antibiotics for treatment of pneumonia. Rapid and PCR COVID-19 were negative. Rapid influenza negative. On presentation with noted acute kidney injury, creatinine 1.5. This did increase up to around 2-1/2, where it stabilized. His diuresis was held. His blood pressures improved with nifedipine 90 mg. He was continued on propranolol. Losartan was held. Echocardiogram showed normal ejection fraction, but with upper normal left ventricular wall thickness. With persistent acute kidney injury renal ultrasound was obtained which was found to be normal. Renal artery Doppler ultrasound without evidence of hemodynamically significant renal artery stenosis bilaterally. Noted significant proteinuria on UA. He was assessed by nephrology with concern for nephrotic range proteinuria. He is noted to have chronic kidney disease stage II-III at baseline, with creatinine around 1.2-1.3 at baseline. With diabetic nephropathy. Acute kidney injury on chronic kidney disease noted secondary to diuresis, possibly antibiotic, also ARB, some NSAID use, possible contrast nephropathy with CTA on presentation. Consideration was given to infectious glomerulonephritis or IgA nephropathy. OTONIEL was done and was negative. AntidsDNA negative. C3, C4 normal. ANCA pending. Antimitochondrial antibodies pending. SPEP shows hypoalbuminemia, possibly due to increased loss with diabetic nephropathy. Hepatitis panel with history of immunization for hepatitis B. PTH noted elevated at 88. Recommendation to repeat in 6 weeks. Was noted to have edema of extremities for which was restarted on diuretic with Bumex for possible diastolic acute congestive heart failure. Was noted to have iron deficiency for which received IV iron while in the hospital. Is started on oral replacement on discharge. Hemoglobin remained stable. Transiently required oxygen due to his pneumonia, however, today was weaned off. He has been feeling much better, and requesting to return home. Was assessed by home oxygen study and did not qualify for oxygen on discharge. Will complete antibiotic therapy with 3 more doses of Levaquin. He is instructed to follow-up with nephrology in office. In case there is no improvement in his renal function or with worsening renal biopsy may need to be considered. He is encouraged to quit smoking. Physical Exam Const: COMMON NORMALS: no acute distress and patient oriented x3 HENMT: COMMON NORMALS: oropharynx normal Neck/C-Spine: COMMON NORMALS: no JVD Resp: COMMON NORMALS: normal respiratory effort and clear to auscultation bilaterally AUSCULTATION: clear to auscultation bilaterally Cardio: COMMON NORMALS: no JVD, regular rhythm, S1 normal heart sound present, S2 normal heart sound present and No murmurs present (Cardio) RHYTHM: regular rhythm HEART SOUNDS: S1 normal heart sound present and S2 normal heart sound present GI: COMMON NORMALS: Normal to inspection, nondistended, normoactive bowel sounds present, Soft to palpation and non-tender PALPATION: Yes Soft to palpation Extremity: COMMON NORMALS: no joint enlargement GENERAL: Yes edema (trace) Neuro: COMMON NORMALS: patient oriented x3 and moves all extremities Skin: COMMON NORMALS: no rashes or lesions noted GENERAL SKIN EXAM: no rashes or lesions noted Discharge Data Data Completed and Pending: Completed Studies During Hospitalization Category Date Time Status CT angio chest PE protcl [id number] Urge nt Cat Scan 08/11/20 23:00 Completed XR chest 1V erasmo ble [id number] Stat Exams 08/11/20 17:08 Completed CV echo complete* [id number] Routine Ultrasound 08/12/20 01:37 Completed CV renal doppler [id number] Routine Ultrasound 08/14/20 10:00 [place] [id number] Routin e Ultrasound 08/14/20 08:43 Completed US renal BI* [id number] Routine Ultrasound 08/14/20 08:43 Completed Pending at discharge Category Date Time Status OTONIEL Screen w/ Ref milind Routine Lab 08/14/20 08:44 Results Anti-Neutrophil C utoplasmic AB Rout ine Lab 08/14/20 08:43 Received Complete Blood Co unt w/Auto AM LABS Lab 08/18/20 04:00 Ordered Comprehensive Met abolic Panel AM LA BS Lab 08/18/20 04:00 Ordered Magnesium AM LABS Lab 08/18/20 04:00 Ordered Plasma Renin Acti vity LC/MS/MS Rout ine Lab 08/12/20 03:10 Received Protein Electroph oresis, 24 HR Rout ine Lab 08/14/20 12:15 Results Labs from last 24 hours 08/17/20 08/17/20 08/17/20 11:02 06:50 06:34 WBC RBC Hgb Hct MCV MCH MCHC RDW Plt Count MPV Neut % (Auto) Lymph % (Auto) [place] % (Auto) Eos % (Auto) Baso % (Auto) Neut # (Auto) Lymph # (Auto) [place] # (Auto) Eos # (Auto) Baso # (Auto) Nucleated RBC % (a uto) Nucleated RBCs # Sodium 135 L Potassium 5.1 Chloride 103 Carbon Dioxide 23 Anion Gap 14.1 BUN 19 Creatinine 2.6 H GFR Calculation 29.1 L Glucose 302 H POC Glucose 213 H 299 H Calculated Osmolal ity 294 Calcium 8.9 Phosphorus 3.9 Magnesium 1.9 Total Bilirubin 0.2 AST 14 ALT 13 Alkaline Phosphata se 55 NT-Pro-B Natriuret Pep 4825 H Total Protein 6.0 L Albumin 2.6 L Globulin 3.4 Wfrpz-9-Satorxhks Lezya-1-Vucqvlyzm Gpzi-6-Guefqohz Psae-6-Ayzmsjij Gamma Globulins Abnorm Protein Ban d 1 Aldosterone Ur Creatinine 24 H our Ur Total Protein 2 4 Hr Protein/Creatinin Ratio Protein/Creat Rati o 24h U Abnormal Prot Ba nd 2 U Abnormal Prot Ba nd 3 Pro Electrophoresi s Int 08/17/20 08/17/20 08/16/20 05:04 05:04 20:40 WBC 11.9 H RBC 3.01 L Hgb 9.1 L Hct 28.5 L MCV 94.7 H MCH 30.2 MCHC 31.9 RDW 13.0 Plt Count 220 MPV 11.8 H Neut % (Auto) 68.7 Lymph % (Auto) 22.9 [place] % (Auto) 5.5 Eos % (Auto) 1.9 Baso % (Auto) 0.6 Neut # (Auto) 8.19 H Lymph # (Auto) 2.7 [place] # (Auto) 0.7 Eos # (Auto) 0.2 Baso # (Auto) 0.1 Nucleated RBC % (a uto) 0 Nucleated RBCs # 0.0 Sodium Cancelled Potassium Cancelled Chloride Cancelled Carbon Dioxide Cancelled Anion Gap Cancelled BUN Cancelled Creatinine Cancelled GFR Calculation Cancelled Glucose Cancelled POC Glucose 168 H Calculated Osmolal ity Cancelled Calcium Cancelled Phosphorus Cancelled Magnesium Cancelled Total Bilirubin Cancelled AST Cancelled ALT Cancelled Alkaline Phosphata se Cancelled NT-Pro-B Natriuret Pep Total Protein Cancelled Albumin Cancelled Globulin Cancelled Emzxb-5-Jwyjbxrep Owgyb-0-Eszypchcf Mxmr-4-Qzkxsyfx Nxgz-5-Tvjjfbve Gamma Globulins Abnorm Protein Ban d 1 Aldosterone Ur Creatinine 24 H our Ur Total Protein 2 4 Hr Protein/Creatinin Ratio Protein/Creat Rati o 24h U Abnormal Prot Ba nd 2 U Abnormal Prot Ba nd 3 Pro Electrophoresi s Int 08/16/20 08/15/20 08/14/20 17:04 03:27 12:15 WBC RBC Hgb Hct MCV MCH MCHC RDW Plt Count MPV Neut % (Auto) Lymph % (Auto) [place] % (Auto) Eos % (Auto) Baso % (Auto) Neut # (Auto) Lymph # (Auto) [place] # (Auto) Eos # (Auto) Baso # (Auto) Nucleated RBC % (a uto) Nucleated RBCs # Sodium Potassium Chloride Carbon Dioxide Anion Gap BUN Creatinine GFR Calculation Glucose POC Glucose 86 Calculated Osmolal ity Calcium Phosphorus Magnesium Total Bilirubin AST ALT Alkaline Phosphata se NT-Pro-B Natriuret Pep Total Protein Albumin 2.4 L Globulin Tnnif-5-Wztdkmunk 0.3 Lrmcb-7-Onwuwwuem 0.7 Hwiw-7-Kajhymub 0.3 L Ilyu-9-Faupedaf 0.4 Gamma Globulins 0.9 Abnorm Protein Ban d 1 Not Reportable Aldosterone Ur Creatinine 24 H our 2.24 H Ur Total Protein 2 4 Hr 7216 H Protein/Creatinin Ratio 3216 H Protein/Creat Rati o 24h 3.216 H U Abnormal Prot Ba nd 2 Not Reportable U Abnormal Prot Ba nd 3 Not Reportable Pro Electrophoresi s Int See note 08/12/20 03:10 WBC RBC Hgb Hct MCV MCH MCHC RDW Plt Count MPV Neut % (Auto) Lymph % (Auto) [place] % (Auto) Eos % (Auto) Baso % (Auto) Neut # (Auto) Lymph # (Auto) [place] # (Auto) Eos # (Auto) Baso # (Auto) Nucleated RBC % (a uto) Nucleated RBCs # Sodium Potassium Chloride Carbon Dioxide Anion Gap BUN Creatinine GFR Calculation Glucose POC Glucose Calculated Osmolal ity Calcium Phosphorus Magnesium Total Bilirubin AST ALT Alkaline Phosphata se NT-Pro-B Natriuret Pep Total Protein Albumin Globulin Qqcvl-4-Hrsrmnnev Udrjf-4-Iibzqdcvu Dfhk-3-Dfclxocb Hgut-9-Fvnksljt Gamma Globulins Abnorm Protein Ban d 1 Aldosterone <1 Ur Creatinine 24 H our Ur Total Protein 2 4 Hr Protein/Creatinin Ratio Protein/Creat Rati o 24h U Abnormal Prot Ba nd 2 U Abnormal Prot Ba nd 3 Pro Electrophoresi s Int Vitals: Last Vital Signs Temp 98.2 F 08/17/20 15:23 Pulse 66 08/17/20 15:23 Resp 20 H 08/17/20 15:23 BP 116/69 08/17/20 15:23 Pulse Ox 95 08/17/20 15:23 Discharge Plan Discharge Patient Disposition: Home Condition: Stable Prescriptions: New nifedipine 30 mg Tablet Extended Release 24hr 90 mg PO DAILY Qty: 30 RF: 0 levofloxacin 750 mg tablet 750 mg PO DAILY 3 Days Qty: 3 RF: 0 Feosol 325 mg (65 mg iron) tablet 325 mg PO EVERY OTHER DAY Qty: 15 RF: 0 Continued propranolol 60 mg capsule,extended release 24 hr 60 mg PO DAILY RF: 0 benzonatate 100 mg capsule 100 mg PO Q4H PRN (Reason: unknown) RF: 0 buspirone 10 mg tablet 10 mg PO BID@0800,2200 RF: 0 albuterol sulfate 90 mcg/actuation HFA aerosol inhaler 2 puff INHALATION Q4H PRN (Reason: Shortness Of Breath) RF: 0 omeprazole 20 mg Capsule,Delayed Release(Dr/Ec) 40 mg PO DAILY@0800 RF: 0 Changed bumetanide 1 mg tablet 1 mg PO DAILY@0800 PRN (Reason: Edema) Qty: 0 RF: 0 Levemir FlexTouch U-100 Insuln 100 unit/mL (3 mL) insulin pen 15 unit SUBCUT BID@0800,2200 Qty: 0 RF: 0 Discontinued cefdinir 300 mg capsule 300 mg PO BID@0800,2200 RF: 0 losartan 100 mg tablet 100 mg PO DAILY@0800 RF: 0 Discharge Orders: Discharge Order (Routine); Ordered 08/17/20 Ordered By: Reji Avila Referrals: Nephrology [Provider Group] - 1 week (RADHA) Alex Escamilla [Primary Care Provider] - 4-7 days Discharge Diet: Cardiac and Diabetic Discharge Activity: Increase activity as tolerated Patient Instructions: Diabetic Nephropathy, Congestive Heart Failure, How to Stop Smoking (GEN), Acute Kidney Injury (GEN), Chronic Kidney Disease (DC), Renal Failure Diet (DC), Cigarette Smoking and Your Health (GEN), Diabetes Mellitus Type 1 in Adults (GEN), Chronic Obstructive Pulmonary Disease (GEN), Hypertensive Crisis (ED), Anemia (GEN), CHF Stoplight Activity Restrictions/Additional Instructions: Check your blood pressure twice daily, and report numbers to your physician. If your blood pressures low, less than 100 mmHg systolic, please do not take nifedipine. For next scheduled time reduce the dose in half. Return for worsening shortness of breath despite treatment, chest discomfort, other concerning symptoms. Please follow-up with nephrology with regards to kidney injury. Have your primary care doctor follow-up your renal function as well. Please discuss with pbx repairer regarding whether biopsy may be necessary for additional diagnosis if there is no improvement in kidney function. Discharge Attestations Time Spent in Discharge Care*: greater than 30 min Quality Metrics Clinical Quality Measures During this hospital stay, did patient experience: None Coding Level of Care Code Acute Bran Mixer for Chg Fwd Diagnoses Pneumonia J18.9 Hypertension I10 Heart failure I50.9 RADHA (acute kidney injury) N17.9 Acute respiratory failure with hypoxia J96.01 COPD (chronic obstructive pulmonary disease) J44.9 Type 1 diabetes mellitus E10.9 Microcytic anemia D50.9
--- NOTE | 2020-08-17 16:48 | PC.NURSE ---
discharge instructions given and explained.pt verb understanding of instructions.discharged via w/c to exit at 1630.pt's mother to drive pt home.
[2020-08-18 14:43] LABS: Plasma Renin Activity LC/MS/MS 0.25 ng/mL/h (0.25-5.82)
[2020-08-20 09:03] LABS: ALBUMIN 63 %; ALPHA-1-GLOBULINS 10 %; ALPHA-2-GLOBULINS 6 %; BETA GLOBULINS 11 %; GAMMA GLOBULINS 10 %
[2020-08-21 12:12] LABS: ANCA Interp Negative (Negative)
--- NOTE | 2020-08-22 13:13 | DCPLANNER ---
Patient had a renal ultrasound completed during hospital stay.
== END 2020-08-17 16:48 | disposition home or self-care (01) | DRG 304 ==
LOC: ER 22:13 → CSU 23:19 → ICU 08-12 00:10 → CSU 08-14 20:04
PROVIDERS: Family Medicine; Internal Medicine; Internal Medicine Nephrology; Admitting Provider Internal Medicine; Emergency Provider Emergency Medicine; PCP Family Medicine; Visit Provider Internal Medicine
DX: I16.1 Hypertensive emergency (principal); I50.33 Acute on chronic diastolic (congestive) heart failure; J96.01 Acute respiratory failure with hypoxia; J18.9 Pneumonia, unspecified organism; N17.9 Acute kidney failure, unspecified; J44.0 Chronic obstructive pulmonary disease with (acute) lower respiratory infection; E10.21 Type 1 diabetes mellitus with diabetic nephropathy; E10.319 Type 1 diabetes mellitus with unspecified diabetic retinopathy without macular edema; F41.9 Anxiety disorder, unspecified; G47.30 Sleep apnea, unspecified; E10.22 Type 1 diabetes mellitus with diabetic chronic kidney disease; I13.0 Hypertensive heart and chronic kidney disease with heart failure and stage 1 through stage 4 chronic kidney disease, or unspecified chronic kidney disease; N18.30 Chronic kidney disease, stage 3 unspecified; F17.210 Nicotine dependence, cigarettes, uncomplicated; F17.220 Nicotine dependence, chewing tobacco, uncomplicated; D50.9 Iron deficiency anemia, unspecified; I70.1 Atherosclerosis of renal artery; Z79.51 Long term (current) use of inhaled steroids
CPT/HCPCS: 12345; 36415; 36416; 36600; 71045; 71275; 76770; 80048; 80051; 80053; 80061; 80306; 81001; 82088; 82310; 82330; 82436; 82570; 82575; 82805; 82962; 83036; 83516; 83540; 83550; 83605; 83735; 83880; 83970; 84100; 84133; 84155; 84156; 84165; 84244; 84300; 84443; 84484; 85025; 85378; 86038; 86160; 86225; 86706; 86803; 87040; 87340; 87426; 87635; 93005; 93306; 93970; 93975; 94640; 96372; 99284; J0360; J0456; J0696; J1644; J1815; J2060; J2405; J2543; J2916; J3490; J3535; J7030; J7050; Q3014; Q9967

== ENCOUNTER 2020-11-09 08:23 | Inpatient (IN) | payer OTHER, SELFPAY ==
[2020-11-09] VITALS (16 sets, daily range): BP systolic 163–215; BP diastolic 83–120; PULSE 18–97; RESP 15–73; TEMP 36.8–37.2; O2SAT 90–96; BMI 33.9
--- NOTE | 2020-11-09 08:46 | ECG_ITS ---
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 Measurements Intervals [place] Rate: 83 P: 42 MA: 119 QRS: 49 QRSD: 95 T: 61 QT: 382 QTc: 450 Interpretive Statements SINUS RHYTHM WITH SHORT MA INTERVAL Compared to ECG 08/13/2020 09:22:49 T-wave abnormality no longer present Electronically Signed On 11-09-2020 23:12:25 CDT by Camilo Mcnair M.D. [email or web address] [email or web address] love and youpearl river county hospitalClassifEyeholzer health systemAi2 [place]/store/[id number]
--- NOTE | 2020-11-09 08:46 | XR_ITS ---
WS: [id number] XR chest 1V portable [id number] REASON FOR EXAM: dyspnea, FINDINGS: There is mild cardiomegaly. Interstitial density centrally with some subpleural linear interstitial densities. Prominent upper lo be pulmonary veins. Bony thorax is intact. XR/XR chest 1V portable [id number] IMPRESSION: Chest abnormality most compatible with congestive heart failure.
[2020-11-09 09:01] LABS: Basophils # 0.1 10^3/uL (0.0-0.1); Basophils % 0.5 %; Eosinophils # 0.1 10^3/uL (0.0-0.8); Eosinophils % 0.8 %; Hematocrit 31.7 % (42.0-52.0); Hemoglobin 10.3 g/dL (11.7-16.6); Lymphocytes # 1.3 10^3/uL (0.8-4.8); Mean Corpuscular HGB Conc 32.5 g/dL (30.0-36.0); Mean Corpuscular Hemoglobin 28.8 pg (28.0-34.0); Mean Corpuscular Volume 88.5 fL (80-94); Mean Platelet Volume 10.3 fL (7.4-10.4); Monocytes # 0.7 10^3/uL (0.2-0.9); Monocytes % 5.6 %; Neutrophils # 9.77 10^3/uL (1.8-7.7); Neutrophils % 81.8 %; Nucleated Red Blood Cells % 0 %; Platelet Count 267 10^3/cmm (130-400); Red Blood Count 3.58 10^6/uL (4.1-5.3); Red Cell Distribution Width 13.8 % (12.1-15.1)
[2020-11-09] MEDS: nitroglycerin 0.4 mg sublingual Tablet 1.2 MG SUBLINGUAL (09:05)
--- NOTE | 2020-11-09 09:06 | PC.NURSE ---
3 tabs nitroglycerin given MD EDUARDA at bedside, patient denied any pain at this time
--- NOTE | 2020-11-09 09:39 | PC.NURSE ---
patient is unable to urinate at this time. stated urine output has been decreasing lately.
[2020-11-09 10:00] LABS: Alanine Aminotransferase 10 U/L (0-41); Albumin Level 2.8 g/dL (3.5-5.2); Alkaline Phosphatase 68 IU/L (40-130); Anion Gap 12.3 (5-19); Aspartate Amino Transferase 21 U/L (0-40); Blood Urea Nitrogen 14 mg/dL (6-20); Calcium 8.2 mg/dL (8.5-10.5); Carbon Dioxide 25 mmol/L (22-29); Chloride 106 mmol/L (98-107); Globulin 2.8 g/dL (1.3-4.6); Glomerular Filtration Rate 47.6 mL/min (90-130); Glucose 168 mg/dL (65-115); Magnesium 1.8 mg/dL (1.7-2.3); NT Pro B Type Natriuretic Pept 10263 pg/mL (0-125); Osmolality Calculated 292 mOsm/kg (285-295); Phosphorus 3.1 mg/dL (2.5-4.5); Potassium 4.3 mmol/L (3.5-5.1); Sodium 139 mmol/L (136-145); Total Bilirubin 0.6 mg/dL (0.15-1.2); Total Protein 5.6 g/dL (6.6-8.7)
--- NOTE | 2020-11-09 10:21 | USCV_ITS ---
Guero Maximiliano Age: 30 Gender: M : 1990 Exam Date: 11/09/2020 10:38 Ordering Phys: Abbi Dickey MD Technologist: Kate Kowalski Exam Location: [facility] [place] Indication: CHF BP: 209 / 113 HR: 71 Rhythm: Sinus Technical Quality: Adequate MEASUREMENTS (Male / Female) Normal Values 2D ECHO LV Diastolic Diameter PLAX 5.6 cm 4.2 - 5.9 / 3.9 - 5.3 cm LV Systolic Diameter PLAX 5.0 cm LV Chamber Size 3.9 cm IVS Diastolic Thickness 0.9 cm 0.6 - 1.0 / 0.6 - 0.9 cm IVS Systolic Thickness 1.2 cm LVPW Diastolic Thickness 1.9 cm 0.6 - 1.0 / 0.6 - 0.9 cm LVPW Systolic Thickness 2.0 cm RV Chamber Size 2.9 cm LVOT Diameter 2.0 cm LV Ejection Fraction 2D Teich 23.1 % LV Ejection Fraction MOD 2C 41.6 % LV Ejection Fraction 2C AL 42.0 % LA Diameter 3.9 cm LA Width 4.2 cm LA Height 4.6 cm RA Width 3.2 cm RA Height 4.6 cm Aorta at Sinotubular Diameter 2.3 cm M-MODE LV Diastolic Diameter MM 7.3 cm 4.2 - 5.9 / 3.9 - 5.3 cm LV Systolic Diameter MM 5.7 cm LV Ejection Fraction MM Teich 44.5 % IVS Diastolic Thickness MM 0.8 cm 0.6 - 1.0 / 0.6 - 0.9 cm IVS Systolic Thickness MM 1.1 cm LVPW Diastolic Thickness MM 0.9 cm 0.6 - 1.0 / 0.6 - 0.9 cm LVPW Systolic Thickness MM 0.9 cm Aortic Annulus Diameter 3.1 cm LA Ao Ratio MM 1.3 MV E Point Septal Separation 2.0 cm FINDINGS Left Ventricle Mildly increased left ventricular cavity size. Moderately decreased left ventricular systolic function. Left ventricular ejection fraction is estimated at 30-35 %. There is global hypokinesis with severe hypokinesis of septal wall. Right Ventricle Normal right ventricular size and systolic function. Right Atrium Normal right atrial size. Left Atrium Mildly increased left atrial size. Mitral Valve Mildly thickened mitral valve. Aortic Valve Probably trileaflet aortic valve. Tricuspid Valve Structurally normal tricuspid valve. Pulmonic Valve Pulmonic valve not well visualized. Pericardium No pericardial effusion. Aorta Normal-sized aortic root. CONCLUSIONS 1. This is a limited 2D study only. 2. Mildly increased left ventricular cavity size. Moderately decreased left ventricular systolic function. Left ventricular ejection fraction is estimated at 30-35 %. There is global hypokinesis with severe hypokinesis of septal wall. 3. When compared to previous echocardiogram dated 08/12/2020, left ventricle systolic function has decreased and there is regional wall motion abnormality now. Zoie Chaney MD (Electronically Signed) Final Date: 09 November 2020 13:11 S
--- NOTE | 2020-11-09 10:23 | ED_ITS ---
HPI - Extremity Problem General: Chief complaint: Extremity Problem,Nontraumatic Stated complaint: BLE EDEMA Time Seen by Provider: 11/09/20 08:46 Source: patient and old records reviewed Mode of arrival: EMS Limitations: no limitations History of Present Illness: HPI Narrative: 30-year-old male with history of type 1 diabetes, chronic kidney disease, CHF, presenting with worsening edema and shortness of breath over the past several weeks. He has tried doubling up on his Bumex without any improvement. His symptoms are worse with exertion and lying flat. He has pleuritic chest pain, worse when he takes a deep breath, with gurgling . He was seen cardiology outpatient in [place] last week and told that everything was fine , in his words. No fever. Decreased urine output Associated symptoms: Deny rash Review of Systems General: Reports: 10 or more systems reviewed and unremarkable except in HPI and below Const: Reports: body aches, change in appetite, change in weight, fatigue, malaise, night sweats and diaphoresis Eyes: Reports: blurry vision; Denies: change in vision or blind spots ENMT: Denies: odynophagia, hoarseness or oral sores Card: Reports: edema, swelling of feet/ankles, lightheadedness, pre-syncope, dyspnea on exertion, orthopnea and leg pain with exertion; Denies: irregular heart rhythm Resp: Reports: dyspnea, non-productive cough, wheezing and chest congestion GI: Denies: abdominal pain, nausea or vomiting : Reports: flank pain and oliguria; Denies: difficulty urinating or dysuria Musc: Reports: extremity pain, extremity swelling, joint swelling and muscle cramps Skin/Breast: Denies: rash, pruritus, erythema, skin pain or skin tenderness Neuro: Reports: weakness in extremities and difficulty walking Farhan/Lymph: Denies: easy bruising or easy bleeding PFSH ED PFSH: Medical History Anxiety COPD (chronic obstructive pulmonary disease) Heart failure Hypertension New onset of congestive heart failure Sleep apnea Type 1 diabetes mellitus Surgical History H/O hand surgery Family History Mother Diabetes Type 1 diabetes and CHF Other CAD (coronary artery disease) Social History Smoking and tobacco status: current every day smoker cigarettes Packs smoked per day: 1 Years cigarettes smoked: 15 [ Other cigarette details: Also chews tobacco ] Alcohol intake: current Alcohol intake frequency: holidays/special occasions only Housing: House Physical Exam Const: COMMON NORMALS: patient oriented x3 GENERAL APPEARANCE: cooperative, anxious, lethargic and ill appearing NUTRITIONAL APPEARANCE: overweight ORIENTATION/CONSCIOUSNESS: Yes lethargic HENMT: COMMON NORMALS: normocephalic HEAD & SCALP: normocephalic FACE & SINUS: normal facial exam and face symmetric Eye: COMMON NORMALS: Equal, round and reactive pupils present, EOMs intact bilaterally, conjunctivae normal and no scleral icterus CONJUNCTIVA: Yes conjunctivae normal PUPIL: Yes Equal, round and reactive pupils present Neck/C-Spine: COMMON NORMALS: full ROM, no lymphadenopathy, supple and no JVD GENERAL: No tender and Yes JVD Chest: COMMONS NORMALS: normal inspection of the chest and normal palpation of entire chest wall Resp: EFFORT & INSPECTION: No able to speak in complete sentences, Yes tachypneic, Yes decreased respiratory effort, Yes labored and Yes audible wheezes Cardio: COMMON NORMALS: no JVD, regular rate, regular rhythm, S1 normal heart sound present and S2 normal heart sound present RATE: regular rate RHYTHM: regular rhythm HEART SOUNDS: S1 normal heart sound present and S2 normal heart sound present BRUITS: no abdominal aortic bruits GI: INSPECTION: Yes Abdominal wall edema, Yes Anasarca and Yes abdominal distension AUSCULTATION: Yes Hypoactive bowel sounds present PALPATION: Yes Firmness to palpation present (GI), No Tenderness to palpation present (GI), No Guarding due to palpation present (GI) and No Pulsatile mass present : COMMON NORMALS: No no CVA tenderness and No normal external exam BLADDER/KIDNEY EXAM: No no CVA tenderness Back/Pelvis: COMMON NORMALS: negative for no CVA tenderness Extremity: GENERAL: Yes edema (2+ bilateral) Neuro: COMMON NORMALS: patient oriented x3, CN's II-XII intact bilaterally, moves all extremities and no focal motor deficits SENSORIUM/ORIENTATION: Yes lethargic Psych: COMMON NORMALS: mental status grossly normal Skin: COMMON NORMALS: no rashes or lesions noted and no wounds GENERAL SKIN EXAM: no rashes or lesions noted Course Vital Signs: Vital signs: Vital Signs Temperature 99.0 F 11/11/20 10:43 Pulse Rate 84 11/11/20 16:00 Respiratory Rate 16 11/11/20 16:00 Blood Pressure 149/77 11/11/20 16:00 Pulse Oximetry 95 11/11/20 16:00 MDM - Extremity (Nontraumatic) MDM Narrative: Medical decision making narrative: 30-year-old male with acute on chronic CHF, presenting with hypertensive urgency, pulmonary edema, respiratory failure with hypoxia. Chest x-ray shows pulmonary edema, history of chronic kidney disease. Initially given sublingual nitroglycerin 1200 mcg, with some temporary improvement in breathing and blood pressure. Lab work shows renal function is actually improved, electrolytes are stable. Given 80 mg IV Lasix x1 and had good diuresis, blood pressures have leveled out in the 160/80 range, heart rates been stable in the 70s. He is weaned off oxygen. Echocardiogram was ordered to assess EF. Seem to call from the superintendent plant protection, Dr. Chaney, she said that his EF now is decreased to 30 to 35% compared to 50% 3 months ago. He has significant wall motion abnormalities as well. Troponin was not ordered initially, but will draw baseline troponin in light of these findings. Called and spoke with , who accepts the admission to [facility]. We will also enter consult order for cardiology. He missed all of his medication this morning, so I will order his nifedipine 90 mg p.o. I will hold off on propranolol, since his heart rate is in 80s. Medical Records: Attestation: I reviewed the patient's medical records. Lab Data: Attestation: I reviewed the patient's lab results. Labs: Lab Results 11/09/20 11/09/20 11/09/20 Range/Units 08:14 08:55 08:55 WBC 12.0 H (4.0-10.0) 10^3/ uL RBC 3.58 L (4.1-5.3) 10^6/u L Hgb 10.3 L (11.7-16.6) g/dL Hct 31.7 L (42.0-52.0) % MCV 88.5 (80-94) fL MCH 28.8 (28.0-34.0) pg MCHC 32.5 (30.0-36.0) g/dL RDW 13.8 (12.1-15.1) % Plt Count 267 (130-400) 10^3/c mm MPV 10.3 (7.4-10.4) fL Neut % (Auto) 81.8 % Lymph % (Auto) 11.0 % [place] % (Auto) 5.6 % Eos % (Auto) 0.8 % Baso % (Auto) 0.5 % Neut # (Auto) 9.77 H (1.8-7.7) 10^3/u L Lymph # (Auto) 1.3 (0.8-4.8) 10^3/u L [place] # (Auto) 0.7 (0.2-0.9) 10^3/u L Eos # (Auto) 0.1 (0.0-0.8) 10^3/u L Baso # (Auto) 0.1 (0.0-0.1) 10^3/u L Nucleated RBC % (a uto) 0 % Nucleated RBCs # 0.0 /100WBC Sodium 139 (136-145) mmol/L Potassium 4.3 (3.5-5.1) mmol/L Chloride 106 (98-107) mmol/L Carbon Dioxide 25 (22-29) mmol/L Anion Gap 12.3 (5-19) BUN 14 (6-20) mg/dL Creatinine 1.7 H (0.7-1.2) mg/dL GFR Calculation 47.6 L (90-130) mL/min Glucose 168 H (65-115) mg/dL Calculated Osmolal ity 292 (285-295) mOsm/k g Calcium 8.2 L (8.5-10.5) mg/dL Phosphorus 3.1 (2.5-4.5) mg/dL Magnesium 1.8 (1.7-2.3) mg/dL Total Bilirubin 0.6 (0.15-1.2) mg/dL AST 21 (0-40) U/L ALT 10 (0-41) U/L Alkaline Phosphata se 68 (40-130) IU/L Troponin T Gen 5 n g/L 60 H (0-15) ng/L NT-Pro-B Natriuret Pep 02813 H (0-125) pg/mL Total Protein 5.6 L (6.6-8.7) g/dL Albumin 2.8 L (3.5-5.2) g/dL Globulin 2.8 (1.3-4.6) g/dL Urine Color (Yellow) Urine Appearance (CLEAR) Urine pH (5-7) Ur Specific Gravit y (1.005-1.030) Urine Protein (Negative) Urine Glucose (UA) (Normal) Urine Ketones (Negative) Urine Blood (Negative) Urine Nitrate (Negative) Urine Bilirubin (Negative) Urine Urobilinogen (Negative) mg/dL Ur Leukocyte Jesenia ase (Negative) Urine RBC (0-2) /hpf Urine WBC (0-5) /hpf Ur Squamous Epith Cells (0-5) /hpf Amorphous Sediment Urine Bacteria (NONE) /hpf Urine Opiates Scre en (Negative) ng/mL Ur Barbiturates Sc reen (Negative) ng/mL Ur Phencyclidine S crn (Negative) ng/mL Ur Amphetamines Sc reen (Negative) ng/mL U Benzodiazepines Scrn (Negative) ng/mL Urine Cocaine Scre en (Negative) ng/mL U Marijuana (THC) Screen (Negative) ng/mL 11/09/20 11/09/20 Range/Units 11:05 11:05 WBC (4.0-10.0) 10^3/ uL RBC (4.1-5.3) 10^6/u L Hgb (11.7-16.6) g/dL Hct (42.0-52.0) % MCV (80-94) fL MCH (28.0-34.0) pg MCHC (30.0-36.0) g/dL RDW (12.1-15.1) % Plt Count (130-400) 10^3/c mm MPV (7.4-10.4) fL Neut % (Auto) % Lymph % (Auto) % [place] % (Auto) % Eos % (Auto) % Baso % (Auto) % Neut # (Auto) (1.8-7.7) 10^3/u L Lymph # (Auto) (0.8-4.8) 10^3/u L [place] # (Auto) (0.2-0.9) 10^3/u L Eos # (Auto) (0.0-0.8) 10^3/u L Baso # (Auto) (0.0-0.1) 10^3/u L Nucleated RBC % (a uto) % Nucleated RBCs # /100WBC Sodium (136-145) mmol/L Potassium (3.5-5.1) mmol/L Chloride (98-107) mmol/L Carbon Dioxide (22-29) mmol/L Anion Gap (5-19) BUN (6-20) mg/dL Creatinine (0.7-1.2) mg/dL GFR Calculation (90-130) mL/min Glucose (65-115) mg/dL Calculated Osmolal ity (285-295) mOsm/k g Calcium (8.5-10.5) mg/dL Phosphorus (2.5-4.5) mg/dL Magnesium (1.7-2.3) mg/dL Total Bilirubin (0.15-1.2) mg/dL AST (0-40) U/L ALT (0-41) U/L Alkaline Phosphata se (40-130) IU/L Troponin T Gen 5 n g/L (0-15) ng/L NT-Pro-B Natriuret Pep (0-125) pg/mL Total Protein (6.6-8.7) g/dL Albumin (3.5-5.2) g/dL Globulin (1.3-4.6) g/dL Urine Color Yellow (Yellow) Urine Appearance Clear (CLEAR) Urine pH 7 (5-7) Ur Specific Gravit y 1.010 (1.005-1.030) Urine Protein 3+ H (Negative) Urine Glucose (UA) 1+ (Normal) Urine Ketones Negative (Negative) Urine Blood 3+ H (Negative) Urine Nitrate Negative (Negative) Urine Bilirubin Neg (Negative) Urine Urobilinogen Norm (Negative) mg/dL Ur Leukocyte Jesenia ase Negative (Negative) Urine RBC 25-40 H (0-2) /hpf Urine WBC 0-4 H (0-5) /hpf Ur Squamous Epith Cells 0-4 H (0-5) /hpf Amorphous Sediment Not Reportable Urine Bacteria Trace (NONE) /hpf Urine Opiates Scre en Negative (Negative) ng/mL Ur Barbiturates Sc reen Negative (Negative) ng/mL Ur Phencyclidine S crn Negative (Negative) ng/mL Ur Amphetamines Sc reen Negative (Negative) ng/mL U Benzodiazepines Scrn Negative (Negative) ng/mL Urine Cocaine Scre en Negative (Negative) ng/mL U Marijuana (THC) Screen Negative (Negative) ng/mL Discharge Plan Discharge Admit Provider: Reji Avila Coding Level of Care Code ED 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
[2020-11-09] MEDS: potassium chloride ER 20 mEq Tablet PO (10:25)
[2020-11-09] MEDS: nitroglycerin 1 gm/inch oint Pkt 1 INCH TOPICAL (10:26)
[2020-11-09] MEDS: FUROsemide 10 mg/mL SDV 10mL 80 MG IVP ×2 (10:26→19:02)
[2020-11-09 11:36] LABS: Add Urine Microscopic? YES; Bilirubin Urine Neg (Negative); Blood Urine 3+ (Negative); Glucose Urine UA 1+ (Normal); Ketones Urine Negative (Negative); Leukocyte Esterase Urine Negative (Negative); Nitrate Urine Negative (Negative); Protein Urine 3+ (Negative); Urine Appearance Clear (CLEAR); Urine Color Yellow (Yellow); Urobilinogen Urine Norm (Negative); pH Urine 7 (5-7)
[2020-11-09 11:39] LABS: Bacteria Urine TRACE /hpf; RBC Urine 25-40 /hpf (0-2); Squamous Epithelial Cell Urine 0-4 /hpf (0-5); WBC Urine 0-4 /hpf (0-5)
[2020-11-09 11:40] LABS: Add Urine Culture? Yes; Amphetamines Screen Urine Negative (Negative); Barbiturates Screen Urine Negative (Negative); Benzodiazepines Screen Urine Negative (Negative); Cocaine Screen Urine Negative (Negative); Opiate Screen Urine Negative (Negative); PCP Screen Urine Negative (Negative); THC Screen Urine Negative (Negative)
[2020-11-09 13:39] LABS: Troponin T (5th) Once 60 ng/L (0-15)
[2020-11-09] MEDS: NIFEdipine ER (24 hr) 30 mg Tablet 90 MG PO (13:40)
[2020-11-09 16:51] LABS: Glucose Point of Care 227 mg/dL (70-110)
--- NOTE | 2020-11-09 17:36 | P.CONIM_ITS ---
Providers/Reason For Consult Consulting Physican/Specialty*: Dr. Chaney, cardiology Reason for Consult*: Congestive heart failure Attending Physician: Reji Avila Primary Care Provider: Alex Escamilla History of Present Illness History of Present Illness Maximiliano Jack is a 30 year old male with past medical history of type 1 diabetes, hypertension, anxiety, chronic active smoker and sleep apnea presented to the hospital with complaints of dry cough lower extremity swelling and decreased urine output. He was hospitalized on 11 August last year with hypertensive emergency, acute kidney injury, pulmonary edema and congestive heart failure. He was diuresed with IV Bumex and was treated with antibiotics for possible pneumonia. Rapid and COVID-19 PCR and influenza were negative. Renal ultrasound noted normal kidneys with no renal artery stenosis. He was discharged on nifedipine 90 mg and Bumex 1 mg daily. He was advised to follow- up with nephrology and cardiology as an outpatient. He recently was seen at [facility] by piece goods packer as per patient. He had an echocardiogram done on Thursday but no medication changes were made. As per patient echocardiogram was done and was normal. I do not have any records of the same. Patient continued to have worsening of lower extremity swelling, dyspnea on exertion as well as dry cough which has worsened in the last few days. He complains of orthopnea as well. Patient states he works full-time at [employer]. Patient denies having any chest pain or exertional dyspnea. He denies any URI or UTI-like symptoms. He complains of nausea and 2 episodes of vomiting at around 3 and 5 in the morning. Denies any hematochezia hematemesis or melena. He has not had anything to eat or drink since morning and states he is hungry. His dose of Bumex was increased from 1 mg to 2 mg but patient states that he goes up to 12 hours without urinating. Review of Systems General: Reports: 10 or more systems reviewed and unremarkable except in HPI and below Const: Reports: chills, body aches and fatigue; Denies: fever(s) Eyes: Denies: change in vision ENMT: Denies: throat pain Card: Reports: edema, swelling of feet/ankles, dyspnea on exertion and orthopnea; Denies: chest pain Resp: Reports: dyspnea GI: Denies: abdominal pain : Denies: flank pain Musc: Denies: neck pain Skin/Breast: Denies: rash Neuro: Denies: headache(s) Psych: Reports: anxiety Endo: Denies: polyuria Farhan/Lymph: Denies: easy bruising All/Imm: Denies: urticaria Meds/Allergies Home Medications and Allergies Home Medications Medication Instructions Recorded Confirmed Last Taken Type omeprazole 40 mg PO DAILY@0800 04/30/20 11/09/20 11/08/20 History buspirone 10 mg PO BID@0800,2200 08/11/20 11/09/20 11/08/20 History propranolol 60 mg PO BID@08,2200 08/11/20 11/09/20 11/08/20 History ferrous sulfate [Feosol] 325 mg PO EVERY OTHER DAY #15 tab 08/17/20 11/09/20 11/08/20 Rx Levemir FlexTouch U-100 Insuln See Rx Instructions .ROUTE .COMPLEX 11/09/20 11/09/20 11/08/20 History bumetanide 2 mg PO DAILY@0800 PRN 11/09/20 11/09/20 11/08/20 History nifedipine 90 mg PO DAILY@0800 11/09/20 11/09/20 11/08/20 History Allergies Allergy/AdvReac Type Severity Reaction Status Date / Time codeine Allergy Unknown Verified 05/01/20 10:44 furosemide [From Lasix] Allergy ADV-Weaknes Verified 08/11/20 20:13 s sulfamethoxazole Allergy Unknown Verified 05/01/20 10:44 [From Septra] trimethoprim [From Septra] Allergy Unknown Verified 05/01/20 10:44 PFSH Acute PFSH: Medical History (Updated 11/09/20 @ 20:41 by Zoie Chaney MD) Anxiety COPD (chronic obstructive pulmonary disease) Heart failure Hypertension New onset of congestive heart failure Sleep apnea Type 1 diabetes mellitus Surgical History H/O hand surgery Family History Mother Diabetes Type 1 diabetes and CHF Other CAD (coronary artery disease) Social History Smoking and tobacco status: current every day smoker cigarettes Packs smoked per day: 1 Years cigarettes smoked: 15 [ Other cigarette details: Also chews tobacco ] Alcohol intake: current Alcohol intake frequency: holidays/special occasions only Housing: House Vitals/I&O/Wt Last Vital Signs Temp 98.3 F 11/09/20 08:25 Pulse 18 L 11/09/20 16:11 Resp 73 H 11/09/20 16:11 BP 168/102 11/09/20 15:00 Pulse Ox 95 11/09/20 15:00 11/09/20 11/09/20 11/09/20 06:59 14:59 22:59 Output Total 800 / 800 Balance -800 / -800 Weight last 48 hrs Weight 250 lb Physical Exam Narrative: EXAM NARRATIVE: GENERAL: Obese man sitting in bed propped up in no acute distress HEENT: Extraocular movement intact. Pupils equal round reactive to light. No pallor or icterus. NECK: central trachea, +JVD. No carotid bruit. CARDIOVASCULAR SYSTEM: S1-S2 regular. No S3 or S4 present. No murmur rubs or gallops. RESPIRATORY SYSTEM: Chest clear to auscultation. No wheezes rhonchi or rubs heard. No use of accessory muscles. ABDOMEN: Soft, nontender and nondistended. Normal bowel sounds present. EXTREMITIES: No cyanosis or clubbing. 3+ bilateral leg edema upto knees. No signs of chronic venous insufficiency. TECHNICAL DIRECTOR: Patient is alert oriented ?3. No focal neurological deficits. SKIN: Normal turgor and temperature. No breakdown, rash or nail changes noted. PSYCH: Normal insight and judgment. Data Labs: Other Labs: Creatinine on discharge on 17 August was 2.6. Calcium of 8.2, magnesium 1.8 and phosphorus 3.1. Baseline troponin T of 60; NT proBNP 10,263 increased from 4825 from 17 August 2020 Other Data: Other data: XR chest 1V portable [id number] FINDINGS: There is mild cardiomegaly. Interstitial density centrally with some subpleural linear interstitial densities. Prominent upper lobe pulmonary veins. Bony thorax is intact. IMPRESSION: Chest abnormality most compatible with congestive heart failure. Echocardiogram 09 November 2020 CONCLUSIONS 1. This is a limited 2D study only. 2. Mildly increased left ventricular cavity size. Moderately decreased left ventricular systolic function. Left ventricular ejection fraction is estimated at 30-35 %. There is global hypokinesis with severe hypokinesis of septal wall. Dilated IVC 3. When compared to previous echocardiogram dated 08/12/2020, left ventricle systolic function has decreased and there is regional wall motion abnormality now. Echocardiogram 12 August 2020 CONCLUSIONS 1. Upper normal left ventricular cavity size. Upper normal left ventricular wall thickness. Normal left ventricular systolic function. Left ventricular ejection fraction is estimated at 55%. No regional wall motion abnormalities. Age-appropriate diastolic function. 2. Normal right ventricular size and systolic function. 3. No significant valvular abnormality. 4. No pericardial effusion. 5. No prior similar studies to compare. A&P Assessment and plan (1) NSTEMI (non-ST elevated myocardial infarction): No chest pain, however has SIMPSON and decompensated CHF. -Drop in LV function with RWMA. EKG with SR and no significant ST-T wave changes. -Start on ASA, statin, lovenox and low dose metoprolol. -Continue to diurese with lasix 80 mg IV BID. -Plan for left heart cathetarization based on renal function and clinical progress. Status: Acute (2) Heart failure: Drop in left ventricular ejection fraction on echocardiogram from today with hypokinesis of septal wall. Status: Acute Qualifiers: Heart failure type: systolic Heart failure chronicity: acute Qualified Code(s): I50.21 - Acute systolic (congestive) heart failure (3) Hypertension: received nifedipine x 1 dose. start on metoprolol,imdur and further med changes based on BP. Status: Acute Qualifiers: Hypertension type: essential hypertension Qualified Code(s): I10 - Essential (primary) hypertension (4) RADHA (acute kidney injury): Status: Acute (5) Type 1 diabetes mellitus: Status: Acute (6) Microcytic anemia: Status: Acute Additional A&P Information Chronic active smoker Obesity Anxiety Thank you for allowing me to participate in patient's care. Please feel free to call with questions or concerns. Consult Attestations Time Spent in Patient Care: Greater than 35 minutes (>than 50% of time spent in counselling and/or direct pt care on unit) . Coding Level of Care Code Acute Spreading Machine Operator for Chg Fwd Diagnoses NSTEMI (non-ST elevated myocardial infarction) I21.4 Heart failure I50.21 Heart failure type: systolic Heart failure chronicity: acute Hypertension I10 Hypertension type: essential hypertension RADHA (acute kidney injury) N17.9 Type 1 diabetes mellitus E10.9 Microcytic anemia D50.9
[2020-11-09] MEDS: ondansetron 2 mg/ML SDV 2 mL 4 MG IVP (17:51)
[2020-11-09 18:58] LABS: Troponin T (5th) Once 74 ng/L (0-15)
[2020-11-09] MEDS: aspirin 325 mg Tablet PO (19:02)
[2020-11-09] MEDS: enoxaparin 120 mg/0.8 mL Syringe 115 MG SUBCUT (19:06)
[2020-11-09] MEDS: isosorbide mononitrate ER 30 mg Tablet PO (19:06)
--- NOTE | 2020-11-09 19:56 | PC.NURSE ---
Received bedside report from LUKE Ndiaye. Patient resting in bed with eyes closed. Spontaneously opens eyes with verbal stimuil. Patient SpO2 decreased to 86% while sleeping. Placed patient on 2L NC with increase in SpO2 to 91%. Patient denies pain or needs. Reports being able to breathe much more easily. No distress observed. Discussed Lasix uses and expectations. Patient verbalized understanding.
--- NOTE | 2020-11-09 20:45 | P.HP_ITS ---
Providers/Chief Complaint Admitting Physician: Reji Avila Primary Care Provider: Alex Escamilla Chief Complaint: BLE EDEMA History of Present Illness Pleasant 30-year-old gentleman with DM 1, recent onset CHF, recent acute kidney injury on chronic kidney disease, nephrotic range proteinuria, during last admission thought to be due to diabetic nephropathy, asthma, current smoker, presented due to worsening/persistent cough, dyspnea on exertion, lower extremity swelling. Denies any chest pain or pressure. Reports quite significant orthopnea. Reports recently even despite increasing Bumex dose to 2 mg urine output has not really increased significantly, sometimes at work urinating only once during a shift. Echocardiogram in ER noted decrease in ejection fraction from previous down to 30-35%. Global hypokinesis with severe hypokinesis of septal wall. He received 80 mg Lasix in ER. Received nitroglycerin. Potassium supplementation. Nifedipine for severe hypertension, initially 215/117. Currently he is feeling better. Sitting up in bed. Working better. Denies shortness of breath at rest. Denies chest pain. Review of Systems Const: Denies: fever(s), chills, body aches or malaise Eyes: Denies: change in vision or eye redness ENMT: Denies: throat pain, oral sores or ear or mastoid pain Card: Reports: edema, dyspnea on exertion and orthopnea; Denies: chest pain or pre-syncope Resp: Reports: non-productive cough; Denies: dyspnea, productive cough, change in phlegm color or hemoptysis GI: Denies: abdominal pain, nausea, vomiting, diarrhea, constipation, hematochezia or melena : Denies: flank pain, difficulty urinating, urinary frequency or hematuria Musc: Denies: back pain, joint swelling or joint redness Skin/Breast: Denies: rash, sores or new lesions Neuro: Denies: headache(s), numbness in extremities, weakness in extremities, dizziness, confusion or seizure-like activity Endo: Denies: polyuria or polydipsia Farhan/Lymph: Denies: easy bleeding or purpura All/Imm: Denies: urticaria, throat swelling or tongue swelling Medications/Allergies Home Medications Medication Instructions Recorded Confirmed Last Taken Type omeprazole 40 mg PO DAILY@0800 04/30/20 11/09/20 11/08/20 History buspirone 10 mg PO BID@0800,2200 08/11/20 11/09/20 11/08/20 History propranolol 60 mg PO BID@08,2200 08/11/20 11/09/20 11/08/20 History ferrous sulfate [Feosol] 325 mg PO EVERY OTHER DAY #15 tab 08/17/20 11/09/20 11/08/20 Rx Levemir FlexTouch U-100 Insuln See Rx Instructions .ROUTE .COMPLEX 11/09/20 11/09/20 11/08/20 History bumetanide 2 mg PO DAILY@0800 PRN 11/09/20 11/09/20 11/08/20 History nifedipine 90 mg PO DAILY@0800 11/09/20 11/09/20 11/08/20 History Allergies Allergy/AdvReac Type Severity Reaction Status Date / Time codeine Allergy Unknown Verified 05/01/20 10:44 furosemide [From Lasix] Allergy ADV-Weaknes Verified 08/11/20 20:13 s sulfamethoxazole Allergy Unknown Verified 05/01/20 10:44 [From Septra] trimethoprim [From Septra] Allergy Unknown Verified 05/01/20 10:44 PFSH Acute PFSH: Medical History Anxiety COPD (chronic obstructive pulmonary disease) Heart failure Hypertension New onset of congestive heart failure Sleep apnea Type 1 diabetes mellitus Surgical History H/O hand surgery Family History Mother Diabetes Type 1 diabetes and CHF Other CAD (coronary artery disease) Social History Smoking and tobacco status: current every day smoker cigarettes Packs smoked per day: 1 Years cigarettes smoked: 15 [ Other cigarette details: Also chews tobacco ] Alcohol intake: current Alcohol intake frequency: holidays/special occasions only Housing: House Vitals/I&O/Wt Last Vital Signs Temp 98.9 F 11/09/20 19:17 Pulse 93 11/09/20 19:17 Resp 20 H 11/09/20 19:17 BP 166/83 11/09/20 19:17 Pulse Ox 90 11/09/20 19:17 11/09/20 11/09/20 11/09/20 06:59 14:59 22:59 Output Total 800 / 800 Balance -800 / -800 Weight last 48 hrs Weight 113.398 kg Physical Exam Const: COMMON NORMALS: no acute distress and patient oriented x3 HENMT: COMMON NORMALS: oropharynx normal Neck/C-Spine: COMMON NORMALS: no JVD Resp: COMMON NORMALS: normal respiratory effort and clear to auscultation bilaterally AUSCULTATION: clear to auscultation bilaterally Cardio: COMMON NORMALS: no JVD, regular rhythm, S1 normal heart sound present, S2 normal heart sound present and No murmurs present (Cardio) RHYTHM: regular rhythm HEART SOUNDS: S1 normal heart sound present and S2 normal heart sound present GI: COMMON NORMALS: Normal to inspection, nondistended, normoactive bowel sounds present, Soft to palpation and non-tender PALPATION: Yes Soft to palpation Extremity: COMMON NORMALS: no joint enlargement GENERAL: Yes edema (3+, anasarca up to mid/high thighs) Neuro: COMMON NORMALS: patient oriented x3 and moves all extremities Skin: COMMON NORMALS: no rashes or lesions noted GENERAL SKIN EXAM: no rashes or lesions noted Data : 11/09/20 08:55 11/09/20 08:55 A&P Assessment and plan (1) Heart failure: Acute heart failure, worsening ejection fraction down to 30-35%. Risk factors of coronary disease, poorly controlled hypertension, diabetes, metabolic syndrome, active smoker. Appreciate cardiology assessment and recommendations. Continue diuresis for CHF exacerbation, anasarca. Some edema contribution may be from calcium channel maryjane. Status: Acute Qualifiers: Heart failure type: systolic Heart failure chronicity: acute Qualified Code(s): I50.21 - Acute systolic (congestive) heart failure (2) NSTEMI (non-ST elevated myocardial infarction): Possible NSTEMI. Appreciate cardiology recommendations. Continue cardiac medications, anticoagulation. Pending additional risk stratification with left heart cath. Status: Acute (3) Hypertension: Hypertensive urgency on presentation, blood pressure very elevated, with improvement currently. Monitor. Continue diuretic. Metoprolol, Imdur. Status: Acute Qualifiers: Hypertension type: essential hypertension Qualified Code(s): I10 - Essential (primary) hypertension (4) Anasarca: Severe edema, up to thighs. Diurese. Consider switching away from calcium channel maryjane. Status: Acute (5) CKD (chronic kidney disease): Recently progressive chronic kidney disease. Noted nephrotic range proteinuria during recent admission. On evaluation by nephrology thought to be at the time secondary to diabetes. Follows with a sensor specialist on outpatient basis. Will request records. Status: Acute (6) Smoking addiction: Encourage cessation. States he has been trying to quit. Status: Acute Attestations Medical Necessity Statement*: Admission of over 2 midnights is going to be needed for assessment of management of acute systolic congestive heart failure with new worsening of ejection fraction down to 30-35%, NSTEMI, hypertensive urgency in the young gentleman with multiple cardiac risk factors. 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
[2020-11-09 20:46] LABS: Glucose Point of Care 421 mg/dL (70-110)
[2020-11-09] MEDS: metoprolol tartrate 25 mg Tablet PO (21:34)
[2020-11-09] MEDS: atorvastatin 40 mg Tablet 80 MG PO (21:35)
[2020-11-09] MEDS: insulin glargine 100 units/1 mL 20 UNIT SUBCUT (21:37)
[2020-11-10] VITALS (16 sets, daily range): BP systolic 130–153; BP diastolic 65–86; PULSE 69–88; RESP 16–25; TEMP 36.7–37.6; O2SAT 90–95
[2020-11-10 04:07] LABS: Basophils # 0.1 10^3/uL (0.0-0.1); Basophils % 0.5 %; Eosinophils # 0.2 10^3/uL (0.0-0.8); Eosinophils % 1.6 %; Hematocrit 28.1 % (42.0-52.0); Hemoglobin 9.2 g/dL (11.7-16.6); Lymphocytes # 2.7 10^3/uL (0.8-4.8); Mean Corpuscular HGB Conc 32.7 g/dL (30.0-36.0); Mean Corpuscular Hemoglobin 28.7 pg (28.0-34.0); Mean Corpuscular Volume 87.5 fL (80-94); Monocytes # 0.7 10^3/uL (0.2-0.9); Neutrophils # 5.43 10^3/uL (1.8-7.7); Neutrophils % 59.6 %; Nucleated Red Blood Cells % 0 %; Platelet Count 225 10^3/cmm (130-400); Red Blood Count 3.21 10^6/uL (4.1-5.3); Red Cell Distribution Width 13.2 % (12.1-15.1); White Blood Count 9.1 10^3/uL (4.0-10.0)
[2020-11-10 04:27] LABS: Estmated Average Glucose 140; Hemoglobin A1C 6.5 % (4.0-6.0)
[2020-11-10 04:49] LABS: Alanine Aminotransferase 7 U/L (0-41); Albumin Level 2.3 g/dL (3.5-5.2); Alkaline Phosphatase 61 IU/L (40-130); Anion Gap 10.4 (5-19); Aspartate Amino Transferase 11 U/L (0-40); Blood Urea Nitrogen 20 mg/dL (6-20); Calcium 8.3 mg/dL (8.5-10.5); Carbon Dioxide 28 mmol/L (22-29); Chloride 104 mmol/L (98-107); Chol HDL Ratio 4.26 mg/dL (1.0-5.00); Cholesterol 145 mg/dL (0-200); Glomerular Filtration Rate 39.4 mL/min (90-130); Glucose 187 mg/dL (65-115); HDL Cholesterol 34 mg/dL (60-100); LDL Cholesterol Calculated 99 mg/dL (50-129); LDL HDL Ratio 2.91 RATIO (0.00-3.22); Magnesium 1.7 mg/dL (1.7-2.3); Osmolality Calculated 296 mOsm/kg (285-295); Potassium 3.4 mmol/L (3.5-5.1); Sodium 139 mmol/L (136-145); Total Bilirubin 0.6 mg/dL (0.15-1.2); Total Protein 5.3 g/dL (6.6-8.7); Triglycerides 59 mg/dL (0-150)
[2020-11-10] MEDS: enoxaparin 120 mg/0.8 mL Syringe 115 MG SUBCUT ×2 (06:18→17:56)
[2020-11-10] MEDS: FUROsemide 10 mg/mL SDV 10mL 80 MG IVP ×2 (06:18→17:56)
[2020-11-10 06:47] LABS: Glucose Point of Care 152 mg/dL (70-110)
[2020-11-10] MEDS: insulin glargine 100 units/1 mL 30 UNIT SUBCUT (08:32)
[2020-11-10] MEDS: potassium chloride ER 20 mEq Tablet 40 MEQ PO (08:37)
[2020-11-10] MEDS: isosorbide mononitrate ER 30 mg Tablet PO (08:37)
[2020-11-10] MEDS: metoprolol tartrate 25 mg Tablet PO ×2 (08:37→20:54)
[2020-11-10] MEDS: BuSPIRONE 10 mg Tablet PO ×2 (08:37→20:58)
[2020-11-10] MEDS: aspirin 325 mg Tablet PO (08:38)
[2020-11-10] MEDS: pantoprazole DR 40 mg Tablet PO (08:38)
[2020-11-10 11:13] LABS: Glucose Point of Care 173 mg/dL (70-110)
[2020-11-10 17:13] LABS: Glucose Point of Care 106 mg/dL (70-110)
--- NOTE | 2020-11-10 17:56 | PM.PN ---
Subjective Subjective: Interval history: He feels better. No CP. excellent UO Medications: Reviewed: Yes Medication Review Details: Current Medications Acetaminophen (Acetaminophen 325 Mg Tablet) 650 mg PO Q6H PRN PRN Reason: Mild/Mod Pain Or Temp >/= 101 Aspirin (Aspirin 325 Mg Tablet) 325 mg PO DAILY [facility] Last Admin: 11/10/20 08:38 Dose: 325 mg Documented by: Atorvastatin Calcium (Atorvastatin 40 Mg Tablet) 80 mg PO BEDTIME [facility] Last Admin: 11/09/20 21:35 Dose: 80 mg Documented by: Buspirone HCl (Buspirone 10 Mg Tablet) 10 mg PO BID@0800,2200 [facility] Last Admin: 11/10/20 08:37 Dose: 10 mg Documented by: Dextrose (Dextrose 50% Syringe 50 Ml) 25 ml IVP ONCE PRN; Protocol PRN Reason: hypoglycemia protocol Dextrose (Dextrose 50% Syringe 50 Ml) 50 ml IVP PRN PRN; Protocol PRN Reason: hypoglycemia protocol Enoxaparin Sodium (Enoxaparin 120 Mg/0.8 Ml Syringe) 115 mg SUBCUT Q12H [facility] Last Admin: 11/10/20 17:56 Dose: 115 mg Documented by: Ferrous Sulfate (Ferrous Sulfate Ec 325 Mg Tablet) 325 mg PO EVERY OTHER DAY [facility] Furosemide (Furosemide 10 Mg/Ml Sdv 10ml) 80 mg IVP Q12H [facility] Last Admin: 11/10/20 17:56 Dose: 80 mg Documented by: Glucagon (Glucagon 1 Mg/Ml Inj 1 Ml) 1 mg IM ONCE PRN; Protocol PRN Reason: Adult Acute Hypoglycemia Prot. Dextrose (D5w) 500 mls @ 100 mls/hr IV ONCE PRN; Protocol PRN Reason: Adult Acute Hypoglycemia Prot Insulin Aspart (Insulin Aspart 100 Unit/1 Ml) 0 unit SUBCUT WM&BEDTIME BRITTANIE; Protocol Last Admin: 11/10/20 17:48 Dose: Not Given Documented by: Insulin Glargine (Insulin Glargine 100 Units/1 Ml) 20 unit SUBCUT BEDTIME [facility] Last Admin: 11/09/20 21:37 Dose: 20 unit Documented by: Insulin Glargine (Insulin Glargine 100 Units/1 Ml) 30 unit SUBCUT DAILY [facility] Last Admin: 11/10/20 08:32 Dose: 30 unit Documented by: Isosorbide Mononitrate (Isosorbide Mononitrate Er 30 Mg Tablet) 30 mg PO DAILY [facility] Last Admin: 11/10/20 08:37 Dose: 30 mg Documented by: Metoprolol Tartrate (Metoprolol Tartrate 25 Mg Tablet) 25 mg PO BID@0900,2100 [facility] Last Admin: 11/10/20 08:37 Dose: 25 mg Documented by: Ondansetron HCl (Ondansetron 2 Mg/Ml Sdv 2 Ml) 4 mg IVP Q6H PRN PRN Reason: NAUSEA AND VOMITING Last Admin: 11/09/20 17:51 Dose: 4 mg Documented by: Pantoprazole Sodium (Pantoprazole Dr 40 Mg Tablet) 40 mg PO DAILY@0800 [facility] Last Admin: 11/10/20 08:38 Dose: 40 mg Documented by: Potassium Chloride (Potassium Chloride Er 20 Meq Tablet) 40 meq PO DAILY [facility] Last Admin: 11/10/20 08:37 Dose: 40 meq Documented by: Vitals/I&O/Wt Last Vital Signs Temp 98.0 F 11/10/20 16:00 Pulse 84 11/10/20 16:00 Resp 25 H 11/10/20 16:00 BP 142/80 11/10/20 16:00 Pulse Ox 95 11/10/20 16:00 11/10/20 11/10/20 11/10/20 06:59 14:59 22:59 Intake Total 360 / 360 240 / 600 Output Total 1000 / 2550 2540 / 2540 300 / 2840 Balance -1000 / -1910 -2180 / -2180 -60 / -2240 Weight last 48 hrs Weight 231 lb 11.2 oz Weight 250 lb Physical Exam Narrative: EXAM NARRATIVE: GENERAL: Obese man sitting in bed propped up in no acute distress HEENT: Extraocular movement intact. Pupils equal round reactive to light. No pallor or icterus. NECK: central trachea, +JVD. No carotid bruit. CARDIOVASCULAR SYSTEM: S1-S2 regular. No S3 or S4 present. No murmur rubs or gallops. RESPIRATORY SYSTEM: Chest clear to auscultation. No wheezes rhonchi or rubs heard. No use of accessory muscles. ABDOMEN: Soft, nontender and nondistended. Normal bowel sounds present. EXTREMITIES: No cyanosis or clubbing. 3+ bilateral leg edema upto knees. No signs of chronic venous insufficiency. BOBTAILER: Patient is alert oriented ?3. No focal neurological deficits. SKIN: Normal turgor and temperature. No breakdown, rash or nail changes noted. PSYCH: Normal insight and judgment. Data : 11/10/20 03:06 11/10/20 03:06 Micro: Microbiology 11/09/20 11:05 Urine Culture - Preliminary Urine,Clean Catch A&P Assessment and plan (1) NSTEMI (non-ST elevated myocardial infarction): No chest pain, however has SIMPSON and decompensated CHF. -Drop in LV function with RWMA. EKG with SR and no significant ST-T wave changes. -Started on ASA, statin, lovenox and low dose metoprolol. -Continue to diurese with lasix 80 mg IV BID today. -Plan for left heart cathetarization based on renal function and clinical progress. Status: Acute (2) Heart failure: Acutely decompensated. -decrease to lasix 80 mg daily tomorrow. Drop in left ventricular ejection fraction on echocardiogram from today with hypokinesis of septal wall. Status: Acute Qualifiers: Heart failure type: systolic Heart failure chronicity: acute Qualified Code(s): I50.21 - Acute systolic (congestive) heart failure (3) Hypertension: started on metoprolol,imdur and further med changes based on BP. Status: Acute Qualifiers: Hypertension type: essential hypertension Qualified Code(s): I10 - Essential (primary) hypertension (4) RADHA (acute kidney injury): creatinine increased from 1.7 to 2. -f/u BMP in am Status: Acute (5) Type 1 diabetes mellitus: Status: Acute (6) Microcytic anemia: Status: Acute Additional A&P Information Chronic active smoker Obesity Anxiety Thank you for allowing me to participate in patient's care. Please feel free to call with questions or concerns. Attestations Medical Necessity Statement*: Needs hospital stay for CHF and NSTEMI Time Spent in Patient Care: 16 - 35 minutes (>than 50% of time spent in counselling and/or direct pt care on unit). 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
[2020-11-10 20:11] LABS: Glucose Point of Care 323 mg/dL (70-110)
[2020-11-10] MEDS: atorvastatin 40 mg Tablet 80 MG PO (20:54)
[2020-11-10] MEDS: insulin glargine 100 units/1 mL 20 UNIT SUBCUT (20:55)
--- NOTE | 2020-11-10 22:33 | P.PN_ITS ---
Subjective Subjective: Interval history: Severe edema is improving. Denies chest pain. Denies trouble breathing. Vitals/I&O/Wt Last Vital Signs Temp 98.6 F 11/10/20 19:07 Pulse 87 11/10/20 22:00 Resp 18 11/10/20 21:06 BP 144/86 11/10/20 21:06 Pulse Ox 95 11/10/20 21:06 11/10/20 11/10/20 11/10/20 06:59 14:59 22:59 Intake Total 360 / 360 240 / 600 Output Total 1000 / 2550 2540 / 2540 2000 / 4540 Balance -1000 / -1910 -2180 / -2180 -1760 / -3940 Weight last 48 hrs Weight 105.097 kg Weight 113.398 kg Physical Exam Const: COMMON NORMALS: no acute distress and patient oriented x3 HENMT: COMMON NORMALS: oropharynx normal Neck/C-Spine: COMMON NORMALS: no JVD Resp: COMMON NORMALS: normal respiratory effort and clear to auscultation bilaterally AUSCULTATION: clear to auscultation bilaterally Cardio: COMMON NORMALS: no JVD, regular rhythm, S1 normal heart sound present, S2 normal heart sound present and No murmurs present (Cardio) RHYTHM: regular rhythm HEART SOUNDS: S1 normal heart sound present and S2 normal heart sound present GI: COMMON NORMALS: Normal to inspection, nondistended, normoactive bowel sounds present, Soft to palpation and non-tender PALPATION: Yes Soft to palpation Extremity: COMMON NORMALS: no joint enlargement GENERAL: Yes edema (3+, anasarca up to mid/high thighs) Neuro: COMMON NORMALS: patient oriented x3 and moves all extremities Skin: COMMON NORMALS: no rashes or lesions noted GENERAL SKIN EXAM: no rashes or lesions noted Data : 11/10/20 03:06 11/10/20 03:06 Micro: Microbiology 11/09/20 11:05 Urine Culture - Preliminary Urine,Clean Catch A&P Assessment and plan (1) Heart failure: Continue IV diuretics for heart failure, anasarca. Acute heart failure, worsening ejection fraction down to 30-35%. Risk factors of coronary disease, poorly controlled hypertension, diabetes, metabolic syndrome, active smoker. Appreciate cardiology assessment and recommendations. Anticipate additional evaluation by coronary angiography with timing depending on progress and renal function. Continue diuresis for CHF exacerbation, anasarca. Some edema contribution may be from calcium channel maryjane. Status: Acute Qualifiers: Heart failure type: systolic Heart failure chronicity: acute Qualified Code(s): I50.21 - Acute systolic (congestive) heart failure (2) NSTEMI (non-ST elevated myocardial infarction): Possible NSTEMI. Appreciate cardiology recommendations. Continue cardiac medications, anticoagulation. Pending additional risk stratification with left heart cath. Status: Acute (3) Hypertension: Hypertensive urgency on presentation. Blood pressures are much better. Continue diuretic. Metoprolol, Imdur. Status: Acute Qualifiers: Hypertension type: essential hypertension Qualified Code(s): I10 - Essential (primary) hypertension (4) Anasarca: Severe edema, up to thighs. Diurese. Consider switching away from calcium channel maryjane. Status: Acute (5) CKD (chronic kidney disease): Recently progressive chronic kidney disease. Noted nephrotic range proteinuria during recent admission. On evaluation by nephrology thought to be at the time secondary to diabetes. Follows with a administrative liaison on outpatient basis. Requested records. Status: Acute (6) Smoking addiction: Encourage cessation. States he has been trying to quit. Status: Acute Attestations Medical Necessity Statement*: Continue admission for assessment management of CHF, anasarca in the setting of chronic kidney disease, pending additional assessment of progression of CHF, decrease of ejection fraction in the young gentleman with risk factors of CAD. 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
[2020-11-11] VITALS (11 sets, daily range): BP systolic 149–166; BP diastolic 76–98; PULSE 72–90; RESP 10–18; TEMP 36.4–37.2; O2SAT 95–98
[2020-11-11 04:43] LABS: Basophils # 0.1 10^3/uL (0.0-0.1); Basophils % 0.8 %; Eosinophils # 0.2 10^3/uL (0.0-0.8); Eosinophils % 2.4 %; Hematocrit 29.4 % (42.0-52.0); Hemoglobin 9.6 g/dL (11.7-16.6); Lymphocytes # 2.6 10^3/uL (0.8-4.8); Lymphocytes % 30.4 %; Mean Corpuscular HGB Conc 32.7 g/dL (30.0-36.0); Mean Corpuscular Hemoglobin 28.5 pg (28.0-34.0); Mean Corpuscular Volume 87.2 fL (80-94); Mean Platelet Volume 10.9 fL (7.4-10.4); Monocytes # 0.7 10^3/uL (0.2-0.9); Monocytes % 7.7 %; Neutrophils # 5.01 10^3/uL (1.8-7.7); Neutrophils % 58.4 %; Nucleated Red Blood Cells % 0 %; Platelet Count 238 10^3/cmm (130-400); Red Blood Count 3.37 10^6/uL (4.1-5.3); Red Cell Distribution Width 13.2 % (12.1-15.1); White Blood Count 8.6 10^3/uL (4.0-10.0)
[2020-11-11 05:15] LABS: Alanine Aminotransferase 7 U/L (0-41); Albumin Level 2.4 g/dL (3.5-5.2); Alkaline Phosphatase 58 IU/L (40-130); Anion Gap 10.6 (5-19); Aspartate Amino Transferase 11 U/L (0-40); Blood Urea Nitrogen 23 mg/dL (6-20); Calcium 8.4 mg/dL (8.5-10.5); Carbon Dioxide 29 mmol/L (22-29); Chloride 106 mmol/L (98-107); Glomerular Filtration Rate 39.4 mL/min (90-130); Glucose 107 mg/dL (65-115); Osmolality Calculated 298 mOsm/kg (285-295); Potassium 3.6 mmol/L (3.5-5.1); Sodium 142 mmol/L (136-145); Total Bilirubin 0.3 mg/dL (0.15-1.2); Total Protein 5.4 g/dL (6.6-8.7)
[2020-11-11] MEDS: enoxaparin 100 mg/mL Syringe SUBCUT ×2 (06:30→19:02)
[2020-11-11 06:49] LABS: Glucose Point of Care 68 mg/dL (70-110)
[2020-11-11] MEDS: aspirin 325 mg Tablet PO (08:59)
[2020-11-11] MEDS: BuSPIRONE 10 mg Tablet PO ×2 (08:59→21:18)
[2020-11-11] MEDS: isosorbide mononitrate ER 30 mg Tablet PO (08:59)
[2020-11-11] MEDS: metoprolol tartrate 25 mg Tablet PO ×2 (08:59→21:18)
[2020-11-11] MEDS: potassium chloride ER 20 mEq Tablet 40 MEQ PO (08:59)
[2020-11-11] MEDS: ferrous sulfate EC 325 mg Tablet PO (08:59)
[2020-11-11] MEDS: FUROsemide 10 mg/mL SDV 10mL 80 MG IVP (09:00)
[2020-11-11] MEDS: pantoprazole DR 40 mg Tablet PO (09:01)
[2020-11-11] MEDS: insulin glargine 100 units/1 mL 30 UNIT SUBCUT (10:01)
[2020-11-11 10:07] LABS: Glucose Point of Care 218 mg/dL (70-110)
[2020-11-11 11:27] LABS: Glucose Point of Care 229 mg/dL (70-110)
[2020-11-11 16:40] LABS: Glucose Point of Care 123 mg/dL (70-110)
--- NOTE | 2020-11-11 17:00 | PM.PN ---
Subjective Subjective: Interval history: He feels better. No CP. excellent UO Medications: Reviewed: Yes Medication Review Details: Current Medications Acetaminophen (Acetaminophen 325 Mg Tablet) 650 mg PO Q6H PRN PRN Reason: Mild/Mod Pain Or Temp >/= 101 Aspirin (Aspirin 325 Mg Tablet) 325 mg PO DAILY [facility] Last Admin: 11/10/20 08:38 Dose: 325 mg Documented by: Atorvastatin Calcium (Atorvastatin 40 Mg Tablet) 80 mg PO BEDTIME [facility] Last Admin: 11/09/20 21:35 Dose: 80 mg Documented by: Buspirone HCl (Buspirone 10 Mg Tablet) 10 mg PO BID@0800,2200 [facility] Last Admin: 11/10/20 08:37 Dose: 10 mg Documented by: Dextrose (Dextrose 50% Syringe 50 Ml) 25 ml IVP ONCE PRN; Protocol PRN Reason: hypoglycemia protocol Dextrose (Dextrose 50% Syringe 50 Ml) 50 ml IVP PRN PRN; Protocol PRN Reason: hypoglycemia protocol Enoxaparin Sodium (Enoxaparin 120 Mg/0.8 Ml Syringe) 115 mg SUBCUT Q12H [facility] Last Admin: 11/10/20 17:56 Dose: 115 mg Documented by: Ferrous Sulfate (Ferrous Sulfate Ec 325 Mg Tablet) 325 mg PO EVERY OTHER DAY [facility] Furosemide (Furosemide 10 Mg/Ml Sdv 10ml) 80 mg IVP Q12H [facility] Last Admin: 11/10/20 17:56 Dose: 80 mg Documented by: Glucagon (Glucagon 1 Mg/Ml Inj 1 Ml) 1 mg IM ONCE PRN; Protocol PRN Reason: Adult Acute Hypoglycemia Prot. Dextrose (D5w) 500 mls @ 100 mls/hr IV ONCE PRN; Protocol PRN Reason: Adult Acute Hypoglycemia Prot Insulin Aspart (Insulin Aspart 100 Unit/1 Ml) 0 unit SUBCUT WM&BEDTIME [facility]; Protocol Last Admin: 11/10/20 17:48 Dose: Not Given Documented by: Insulin Glargine (Insulin Glargine 100 Units/1 Ml) 20 unit SUBCUT BEDTIME [facility] Last Admin: 11/09/20 21:37 Dose: 20 unit Documented by: Insulin Glargine (Insulin Glargine 100 Units/1 Ml) 30 unit SUBCUT DAILY [facility] Last Admin: 11/10/20 08:32 Dose: 30 unit Documented by: Isosorbide Mononitrate (Isosorbide Mononitrate Er 30 Mg Tablet) 30 mg PO DAILY [facility] Last Admin: 11/10/20 08:37 Dose: 30 mg Documented by: Metoprolol Tartrate (Metoprolol Tartrate 25 Mg Tablet) 25 mg PO BID@0900,2100 [facility] Last Admin: 11/10/20 08:37 Dose: 25 mg Documented by: Ondansetron HCl (Ondansetron 2 Mg/Ml Sdv 2 Ml) 4 mg IVP Q6H PRN PRN Reason: NAUSEA AND VOMITING Last Admin: 11/09/20 17:51 Dose: 4 mg Documented by: Pantoprazole Sodium (Pantoprazole Dr 40 Mg Tablet) 40 mg PO DAILY@0800 [facility] Last Admin: 11/10/20 08:38 Dose: 40 mg Documented by: Potassium Chloride (Potassium Chloride Er 20 Meq Tablet) 40 meq PO DAILY [facility] Last Admin: 11/10/20 08:37 Dose: 40 meq Documented by: Vitals/I&O/Wt Last Vital Signs Temp 99.0 F 11/11/20 10:43 Pulse 72 11/11/20 14:00 Resp 10 L 11/11/20 10:43 BP 164/89 11/11/20 10:43 Pulse Ox 97 11/11/20 10:43 11/11/20 11/11/20 11/11/20 06:59 14:59 22:59 Intake Total 360 / 360 Output Total 1875 / 6415 2645 / 2645 Balance -1875 / -5577 -2285 / -2285 Weight last 48 hrs Weight 233 lb 6.4 oz Weight 231 lb 11.2 oz Physical Exam Narrative: EXAM NARRATIVE: GENERAL: Obese man sitting in bed propped up in no acute distress HEENT: Extraocular movement intact. Pupils equal round reactive to light. No pallor or icterus. NECK: central trachea, +JVD. No carotid bruit. CARDIOVASCULAR SYSTEM: S1-S2 regular. No S3 or S4 present. No murmur rubs or gallops. RESPIRATORY SYSTEM: Chest clear to auscultation. No wheezes rhonchi or rubs heard. No use of accessory muscles. ABDOMEN: Soft, nontender and nondistended. Normal bowel sounds present. EXTREMITIES: No cyanosis or clubbing. 1+ bilateral lower leg edema. No signs of chronic venous insufficiency. OVERNIGHT ASSOCIATE: Patient is alert oriented ?3. No focal neurological deficits. SKIN: Normal turgor and temperature. No breakdown, rash or nail changes noted. PSYCH: Normal insight and judgment. Data : 11/11/20 04:07 11/11/20 04:07 Micro: Microbiology 11/09/20 11:05 Urine Culture - Final Urine,Clean Catch A&P Assessment and plan (1) Heart failure: Acutely decompensated. -decrease to lasix 80 mg PO daily tomorrow. Drop in left ventricular ejection fraction on echocardiogram from today with hypokinesis of septal wall. Status: Acute Qualifiers: Heart failure type: systolic Heart failure chronicity: acute Qualified Code(s): I50.21 - Acute systolic (congestive) heart failure (2) NSTEMI (non-ST elevated myocardial infarction): Late presentation Type 1 vs Type 2 -No chest pain, however has SIMPSON and decompensated CHF. -Drop in LV function with RWMA. EKG with SR and no significant ST-T wave changes. -Started on ASA, statin, lovenox and metoprolol. -Plan for left heart cathetarization based on renal function and clinical progress tomorrow/Thursday. Status: Acute (3) Hypertension: started on metoprolol,imdur and further med changes based on BP. Status: Acute Qualifiers: Hypertension type: essential hypertension Qualified Code(s): I10 - Essential (primary) hypertension (4) RADHA (acute kidney injury): creatinine increased from 1.7 to 2. -f/u BMP in am Status: Acute (5) Type 1 diabetes mellitus: Status: Acute (6) Microcytic anemia: Status: Acute Additional A&P Information Chronic active smoker Obesity Anxiety Thank you for allowing me to participate in patient's care. Please feel free to call with questions or concerns. 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
[2020-11-11] MEDS: nicotine 21 mg Patch 1 PATCH TRANSDERMA (19:02)
--- NOTE | 2020-11-11 19:15 | PC.NURSE ---
Bedside report recieved from Shelbie BUTLER. Patient was resting in bed on L side with tv on upon entering room. Patient alert and oriented x 4 no voiced pain or concerns at this time. Patient sitting up watching tv with call light in reach and room free of clutter will continue to monitor and assist as needed following CPOC
--- NOTE | 2020-11-11 20:32 | P.PN_ITS ---
Subjective Subjective: Interval history: He is doing well. Eating dinner. Denies any complaints. No chest pain or pressure. Breathing well. Bilateral leg edema continues to slowly shrink. Vitals/I&O/Wt Last Vital Signs Temp 99.0 F 11/11/20 10:43 Pulse 84 11/11/20 16:00 Resp 16 11/11/20 16:00 BP 149/77 11/11/20 16:00 Pulse Ox 95 11/11/20 16:00 11/11/20 11/11/20 11/11/20 06:59 14:59 22:59 Intake Total 360 / 360 120 / 480 Output Total 1875 / 6415 2645 / 2645 450 / 3095 Balance -1875 / -5577 -2285 / -2285 -330 / -2615 Weight last 48 hrs Weight 105.868 kg Weight 105.097 kg Physical Exam Const: COMMON NORMALS: no acute distress and patient oriented x3 HENMT: COMMON NORMALS: oropharynx normal Neck/C-Spine: COMMON NORMALS: no JVD Resp: COMMON NORMALS: normal respiratory effort and clear to auscultation bilaterally AUSCULTATION: clear to auscultation bilaterally Cardio: COMMON NORMALS: no JVD, regular rhythm, S1 normal heart sound present, S2 normal heart sound present and No murmurs present (Cardio) RHYTHM: regular rhythm HEART SOUNDS: S1 normal heart sound present and S2 normal heart sound present GI: COMMON NORMALS: Normal to inspection, nondistended, normoactive bowel sounds present, Soft to palpation and non-tender PALPATION: Yes Soft to palpation Extremity: COMMON NORMALS: no joint enlargement GENERAL: Yes edema (3+, anasarca up to mid/high thighs shrinking, now with minimal wrinkling) Neuro: COMMON NORMALS: patient oriented x3 and moves all extremities Skin: COMMON NORMALS: no rashes or lesions noted GENERAL SKIN EXAM: no rashes or lesions noted Data : 11/11/20 04:07 11/11/20 04:07 Micro: Microbiology 11/09/20 11:05 Urine Culture - Final Urine,Clean Catch A&P Assessment and plan (1) Heart failure: Cardiology recommendations appreciated. Starting tomorrow 80 mg Lasix daily by mouth. Acute heart failure, worsening ejection fraction down to 30-35%. Risk factors of coronary disease, poorly controlled hypertension, diabetes, metabolic syndrome, active smoker. Anticipate additional evaluation by coronary angiography with timing depending on progress and renal function. Continue diuresis for CHF exacerbation, anasarca. Some edema contribution may be from calcium channel maryjane. Status: Acute Qualifiers: Heart failure type: systolic Heart failure chronicity: acute Qualified Code(s): I50.21 - Acute systolic (congestive) heart failure (2) NSTEMI (non-ST elevated myocardial infarction): Possible NSTEMI. Appreciate cardiology recommendations. Continue cardiac medications, anticoagulation. Pending additional risk stratification with left heart cath. Status: Acute (3) Hypertension: Hypertensive urgency on presentation. Blood pressures are much better. Continue to optimize. Continue diuretic. Metoprolol, Imdur. Status: Acute Qualifiers: Hypertension type: essential hypertension Qualified Code(s): I10 - Ess ential (primary) hypertension (4) Anasarca: Severe edema, up to thighs. Diurese. Consider switching away from calcium channel maryjane. Status: Acute (5) CKD (chronic kidney disease): Recently progressive chronic kidney disease. Noted nephrotic range proteinuria during recent admission. On evaluation by nephrology thought to be at the time secondary to diabetes. Follows with a cross cut saw operator on outpatient basis. Requested records. Status: Acute (6) Smoking addiction: Encourage cessation. States he has been trying to quit. Status: Acute Attestations Medical Necessity Statement*: Continue admission for assessment of management of acute congestive heart failure exacerbation, with worsening ejection fraction, pending additional assessment by coronary angiography by cardiology depending on volume status, renal function. 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
[2020-11-11 21:02] LABS: Glucose Point of Care 231 mg/dL (70-110)
[2020-11-11] MEDS: atorvastatin 40 mg Tablet 80 MG PO (21:18)
[2020-11-11] MEDS: insulin glargine 100 units/1 mL 20 UNIT SUBCUT (21:19)
[2020-11-12] VITALS (16 sets, daily range): BP systolic 144–173; BP diastolic 82–97; PULSE 66–93; RESP 18–32; TEMP 36.6–37; O2SAT 92–97
[2020-11-12 02:25] LABS: Glucose Point of Care 146 mg/dL (70-110)
[2020-11-12 05:34] LABS: Basophils # 0.1 10^3/uL (0.0-0.1); Basophils % 0.7 %; Eosinophils # 0.2 10^3/uL (0.0-0.8); Eosinophils % 2.1 %; Hematocrit 30.6 % (42.0-52.0); Hemoglobin 9.9 g/dL (11.7-16.6); Lymphocytes # 2.4 10^3/uL (0.8-4.8); Lymphocytes % 26.7 %; Mean Corpuscular HGB Conc 32.4 g/dL (30.0-36.0); Mean Corpuscular Hemoglobin 28.4 pg (28.0-34.0); Mean Corpuscular Volume 87.7 fL (80-94); Mean Platelet Volume 10.9 fL (7.4-10.4); Monocytes # 0.7 10^3/uL (0.2-0.9); Monocytes % 7.2 %; Neutrophils # 5.76 10^3/uL (1.8-7.7); Neutrophils % 63.1 %; Nucleated Red Blood Cells % 0 %; Platelet Count 251 10^3/cmm (130-400); Red Blood Count 3.49 10^6/uL (4.1-5.3); Red Cell Distribution Width 13.3 % (12.1-15.1); White Blood Count 9.1 10^3/uL (4.0-10.0)
[2020-11-12 06:05] LABS: Alanine Aminotransferase 9 U/L (0-41); Albumin Level 2.4 g/dL (3.5-5.2); Alkaline Phosphatase 62 IU/L (40-130); Anion Gap 11.7 (5-19); Aspartate Amino Transferase 15 U/L (0-40); Blood Urea Nitrogen 19 mg/dL (6-20); Calcium 8.4 mg/dL (8.5-10.5); Carbon Dioxide 29 mmol/L (22-29); Chloride 107 mmol/L (98-107); Globulin 3.3 g/dL (1.3-4.6); Glomerular Filtration Rate 44.5 mL/min (90-130); Glucose 122 mg/dL (65-115); Osmolality Calculated 302 mOsm/kg (285-295); Potassium 3.7 mmol/L (3.5-5.1); Sodium 144 mmol/L (136-145); Total Bilirubin 0.4 mg/dL (0.15-1.2); Total Protein 5.7 g/dL (6.6-8.7)
[2020-11-12] MEDS: enoxaparin 100 mg/mL Syringe SUBCUT (06:52)
[2020-11-12 07:04] LABS: Glucose Point of Care 125 mg/dL (70-110)
--- NOTE | 2020-11-12 08:14 | PC.NURSE ---
gave bedside roport to Ministerio RN this am. Patient alert and oriented x 4. No voiced pain or concerns at this time. Patient NPO for possible LHC, Patient able to move per self and took a shower and recieved clean bedsheets this am around 0300. No skin issues and BLE showing only trace amounts of edema. Will continue to monitor and assist as needed following CPOC
[2020-11-12] MEDS: NIFEdipine ER (24 hr) 30 mg Tablet 90 MG PO (08:29)
[2020-11-12] MEDS: potassium chloride ER 20 mEq Tablet 40 MEQ PO (08:29)
[2020-11-12] MEDS: FUROsemide 40 mg Tablet 80 MG PO (08:29)
[2020-11-12] MEDS: aspirin 325 mg Tablet PO (08:29)
[2020-11-12] MEDS: pantoprazole DR 40 mg Tablet PO (08:29)
[2020-11-12] MEDS: isosorbide mononitrate ER 30 mg Tablet PO (08:29)
[2020-11-12] MEDS: BuSPIRONE 10 mg Tablet PO ×2 (08:32→21:04)
--- NOTE | 2020-11-12 09:07 | XACV_ITS ---
Exam Room: [facility] Ht: 183 cm Wt: 87 kg BSA: 2.11 m2 Gender: Male : 1990 Any Known Allergies: Other Exam Priority: Routine Procedure(s): Procedure Description: Diagnostic procedure Procedure Description: Coronary Angiography Diagnostic Cath Status: Urgent Diagnostic Findings * No significant disease noted in the Left Main, LAD, Circumflex, or RCA coronary arteries. * Coronary angiography shows right dominance. Conclusions 1. No significant disease noted in the Left Main, LAD, Circumflex, or RCA coronary arteries. 2. Reason for coronary angiogram: New onset of heart failure, LV dysfunction. Recommendations * Continue current medical management and risk factor modification. Diagnostic RX Recommendation: medical therapy and/or counseling Pressures Phase:Rest AO : 142 / 66 ( 94 ) @ 8:13:00 AM Clinical Evaluation EBL: 5mL-10mL Procedural Details Procedure Consent Obtained. Pre-Procedure Time Out. Identified patient by full name and date of as verbalized by the patient/guarantor. Does the consent match the physician's order: Yes. Accurate & Complete Informed Consent: Yes. Inpatient/Outpatient History & Physical on Chart: Yes. If H&P is completed, is and addenduem needed: No; If yes, is the addendum complete: N/A. Visualize and Verify Site with Patient/Guarantor: N/A. Relevant Radiology Images available: N/A. Pre-op teaching completed and patient verbalized understanding. The risks, benefits, and alternatives of sedation and/or procedure were discussed by physician. The patient agrees to continue. Procedure started. [facility] Clinical Fraility Score: 2: Well. Remote Sensing Research Scientist Indications: Cardiomyopathy, LV dysfunction, new onset chf. Chest Pain Symptom Assessment: Atypical Angina. Cardiovascular Instability: No, if yes, Persistant Ischemic Symptoms. PERRLA. Strong, equal hand alarm field technician bilaterally. Lungs clear x 5 lobes. Correct patient, site and procedure confirmed by cath team. IV Site on Arrival: 20 gauge in the left upperarm. IV Fluids: 0.9% NaCl at KVO. 0 mL infused prior to cardiac cath tech. Pre Procedural Pulses: bilateral dorsalis pedis was 3+. Pre Procedural Pulses: bilateral posterior tibial was 3+. Pre Procedural Pulses: bilateral radial was 3+. Baseline sample Acquired. HR: 76 BPM. Physician arrived. Equipment: 6F - Radial. Cardiac Cath Pack. ACIST Manifold Kit Model BT 2000. Heparinized Saline (2 units/mL), 1000 mL bag. bilateral groins was prepped with chloroprep then draped in the usual sterile fashion. right radial was prepped with chloroprep then draped in the usual sterile fashion. Physician scrubbed in. Immediate Pre-Procedure Time Out. Correct Patient: Yes; Correct Procedure: Yes; Correct Site: Yes; Correct Patient Position: Yes; Correct Supplies: Yes; Dried Flammable Prep: Yes; Blood Products Available: N/A;. Lidocaine 1% infiltrated to the right radial. Arterial access obtained. A 5 korean TIG catheter in over wire. Multiple views taken of left coronary artery. Catheter redirected to the RCA. Multiple views taken of right coronary artery. Catheter removed over the exchange wire. Physician scrubbed out. A TR Band was successful obtaining hemostatsis at the Right Radial artery insertion site. TR band placed. Hemostasis obtained. Post Procedure: Pulses reassessed and unchanged. PERRLA. Strong, equal hand alarm field technician bilaterally. No VTE prophylaxis required. Medication's Wasted: Lidocaine 1% = 14 mL. Medication's Wasted: Nitro = 49.8 mg. Medication's Wasted: Heparin = 1000 units. Contrast type used: Visipaque 320 mgI/mL, 500 mL bottle. Post-op diagnosis: normal coronaries, new onset heart failure. Complications: none. Estimated blood loss: 5mL-10mL. Procedure completed. Patient transferred by wheelchair to 1st floor. Vital chart was stopped. Access Site Site: Right Radial artery Sheath Size: 6 Fr Hemostasis Method: TR Band Hemostasis Success: Successful Procedure Medications Start: 12:57 PM Stop: 12:57 PM Medication: D50W Amount: 1 Route: I.V. Start: 1:03 PM Stop: 1:03 PM Medication: Versed Amount: 1 mg Route: I.V. Start: 1:03 PM Stop: 1:03 PM Medication: Fentanyl Amount: 50 mcg Route: I.V. Start: 1:05 PM Stop: 1:05 PM Medication: Versed Amount: 1 mg Route: I.V. Start: 1:11 PM Stop: 1:11 PM Medication: Nitrogylcerin Amount: 200 mcg Route: I.A. Start: 1:12 PM Stop: 1:12 PM Medication: Fentanyl Amount: 50 mcg Route: I.V. I, the attending physician, have reviewed and verified all procedure medications. Yes, all medications given per verbal order History/Risk Factors Hypertension: Yes Dyslipidemia: No Peripheral Arterial Disease (PAD): No Myocardial Infarction (AK): No Obesity: No Renal Disease: No Prior Interventions PCI: No CABG: No Valve Surgery: No Report Signatures Finalized by Danie Mehta MD on 11/25/2020 09:03 PM
[2020-11-12] MEDS: metoprolol tartrate 25 mg Tablet PO (10:01)
[2020-11-12] MEDS: sodium chloride 0.9% 1,000 ML 50 ML IV (10:28)
[2020-11-12] MEDS: diphenhydrAMINE 50 mg Capsule PO (10:36)
[2020-11-12] MEDS: ondansetron 2 mg/ML SDV 2 mL 4 MG IVP (11:11)
[2020-11-12 12:18] LABS: Glucose Point of Care 74 mg/dL (70-110)
--- NOTE | 2020-11-12 13:20 | W.PM.OPSUD ---
Surgery/Procedure H&P Update DATE OF PROCEDURE: November 12, 2020 DATE H&P PERFORMED: 11/11/20 H&P UPDATE INFORMATION: I have reviewed H&P completed within last 30 days, I have examined patient prior to procedure and No changes to prior documentation PREOP DIAGNOSIS: New onset heart failure PLANNED PROCEDURE: Operation Date: 11/12/20 12:00 Proposed Procedures p left Cardiac Catheterization 27401 I21.4(Left) - Zoie Chaney MD PATIENT REASSESSED PRIOR TO SEDATION, WITH NO CHANGE NOTED: Yes PHYSICAL EXAM: alert, oriented x 3 and clear to auscultation bilaterally AIRWAY EVAL/ANESTHESIA PLAN: ASA II, Risks, benefits & alternatives of sedation and/or procedure discussed and Patient agrees to continue as planned
--- NOTE | 2020-11-12 13:28 | P.PN_ITS ---
Subjective Subjective: Interval history: He feels better. No CP. excellent UO; LOS-11L He underwent coronary angiogram via right radial. Normal coronaries on [facility] Medications: Reviewed: Yes Medication Review Details: Current Medications Acetaminophen (Acetaminophen 325 Mg Tablet) 650 mg PO Q6H PRN PRN Reason: Mild/Mod Pain Or Temp >/= 101 Aspirin (Aspirin 325 Mg Tablet) 325 mg PO DAILY FORMERLY [facility], [facility]1983 Last Admin: 11/10/20 08:38 Dose: 325 mg Documented by: Atorvastatin Calcium (Atorvastatin 40 Mg Tablet) 80 mg PO BEDTIME FORMERLY [facility], [facility]1983 Last Admin: 11/09/20 21:35 Dose: 80 mg Documented by: Buspirone HCl (Buspirone 10 Mg Tablet) 10 mg PO BID@0800,2200 FOR[facility]LY [facility], [facility]1983 Last Admin: 11/10/20 08:37 Dose: 10 mg Documented by: Dextrose (Dextrose 50% Syringe 50 Ml) 25 ml IVP ONCE PRN; Protocol PRN Reason: hypoglycemia protocol Dextrose (Dextrose 50% Syringe 50 Ml) 50 ml IVP PRN PRN; Protocol PRN Reason: hypoglycemia protocol Enoxaparin Sodium (Enoxaparin 120 Mg/0.8 Ml Syringe) 115 mg SUBCUT Q12H FOR[facility]LY [facility], [facility]1983 Last Admin: 11/10/20 17:56 Dose: 115 mg Documented by: Ferrous Sulfate (Ferrous Sulfate Ec 325 Mg Tablet) 325 mg PO EVERY OTHER DAY FORMERLY [facility], [facility]1983 Furosemide (Furosemide 10 Mg/Ml Sdv 10ml) 80 mg IVP Q12H FOR[facility], [facility] Last Admin: 11/10/20 17:56 Dose: 80 mg Documented by: Glucagon (Glucagon 1 Mg/Ml Inj 1 Ml) 1 mg IM ONCE PRN; Protocol PRN Reason: Adult Acute Hypoglycemia Prot. Dextrose (D5w) 500 mls @ 100 mls/hr IV ONCE PRN; Protocol PRN Reason: Adult Acute Hypoglycemia Prot Insulin Aspart (Insulin Aspart 100 Unit/1 Ml) 0 unit SUBCUT WM&BEDTIME FOR[facility]LY [facility], [facility]; Protocol Last Admin: 11/10/20 17:48 Dose: Not Given Documented by: Insulin Glargine (Insulin Glargine 100 Units/1 Ml) 20 unit SUBCUT BEDTIME FOR[facility]LY [facility], [facility] Last Admin: 11/09/20 21:37 Dose: 20 unit Documented by: Insulin Glargine (Insulin Glargine 100 Units/1 Ml) 30 unit SUBCUT DAILY FOR[facility]LY [facility], [facility] Last Admin: 11/10/20 08:32 Dose: 30 unit Documented by: Isosorbide Mononitrate (Isosorbide Mononitrate Er 30 Mg Tablet) 30 mg PO DAILY [facility], [facility]1983 Last Admin: 11/10/20 08:37 Dose: 30 mg Documented by: Metoprolol Tartrate (Metoprolol Tartrate 25 Mg Tablet) 25 mg PO BID@0900,2100 FOR[facility] Last Admin: 11/10/20 08:37 Dose: 25 mg Documented by: Ondansetron HCl (Ondansetron 2 Mg/Ml Sdv 2 Ml) 4 mg IVP Q6H PRN PRN Reason: NAUSEA AND VOMITING Last Admin: 11/09/20 17:51 Dose: 4 mg Documented by: Pantoprazole Sodium (Pantoprazole Dr 40 Mg Tablet) 40 mg PO DAILY@0800 FOR[facility], [facility] Last Admin: 11/10/20 08:38 Dose: 40 mg Documented by: Potassium Chloride (Potassium Chloride Er 20 Meq Tablet) 40 meq PO DAILY FOR[facility] Last Admin: 11/10/20 08:37 Dose: 40 meq Documented by: Vitals/I&O/Wt Last Vital Signs Temp 98.3 F 11/12/20 08:48 Pulse 71 11/12/20 08:16 Resp 18 11/12/20 08:16 BP 166/94 11/12/20 08:16 Pulse Ox 96 11/12/20 08:16 11/11/20 11/12/20 11/12/20 22:59 06:59 14:59 Intake Total 320 / 680 240 / 920 Output Total 800 / 3445 400 / 3845 630 / 630 Balance -480 / -2765 -160 / -2925 -630 / -630 Weight last 48 hrs Weight 191 lb Weight 233 lb 6.4 oz Physical Exam Narrative: EXAM NARRATIVE: GENERAL: Obese man sitting in bed propped up in no acute distress HEENT: Extraocular movement intact. Pupils equal round reactive to light. No pallor or icterus. NECK: central trachea, No JVD. No carotid bruit. CARDIOVASCULAR SYSTEM: S1-S2 regular. No S3 or S4 present. No murmur rubs or g allops. RESPIRATORY SYSTEM: Chest clear to auscultation. No wheezes rhonchi or rubs heard. No use of accessory muscles. ABDOMEN: Soft, nontender and nondistended. Normal bowel sounds present. EXTREMITIES: No cyanosis or clubbing. trace-1+ bilateral lower leg edema. No signs of chronic venous insufficiency. SANDER AND POLISHER: Patient is alert oriented ?3. No focal neurological deficits. SKIN: Normal turgor and temperature. PSYCH: Normal insight and judgment. Data : 11/12/20 04:38 11/12/20 04:38 Micro: Microbiology 11/09/20 11:05 Urine Culture - Final Urine,Clean Catch Attestation for Other Data: I personally reviewed and interpreted the following: Other data: Echocardiogram 09 November 2020 CONCLUSIONS 1. This is a limited 2D study only. 2. Mildly increased left ventricular cavity size. Moderately decreased left ventricular systolic function. Left ventricular ejection fraction is estimated at 30-35 %. There is global hypokinesis with severe hypokinesis of septal wall. Dilated IVC 3. When compared to previous echocardiogram dated 08/12/2020, left ventricle systolic function has decreased and there is regional wall motion abnormality now. Echocardiogram 12 August 2020 CONCLUSIONS 1. Upper normal left ventricular cavity size. Upper normal left ventricular wall thickness. Normal left ventricular systolic function. Left ventricular ejection fraction is estimated at 55%. No regional wall motion abnormalities. Age-appropriate diastolic function. 2. Normal right ventricular size and systolic function. 3. No significant valvular abnormality. 4. No pericardial effusion. 5. No prior similar studies to compare. A&P Assessment and plan (1) Heart failure: Fairly compensated. -continue lasix 80 mg PO daily. -NICM, start on isodril 20 BID, hydralazine 25 mg TID and change to metoprolol succinate 50 mg daily. -No ACEI/ARB or ARNI given abnormal renal function. -add aldactone 12.5 mg daily tomorrow based on renal function and BP. -Plan for discharge tomorrow. Status: Acute Qualifiers: Heart failure type: systolic Heart failure chronicity: acute Qualified Code(s): I50.21 - Acute systolic (congestive) heart failure (2) NSTEMI (non-ST elevated myocardial infarction): Likely Type 2 in setting of decompensated CHF -No chest pain, however has SIMPSON and decompensated CHF. -Drop in LV function with RWMA. EKG with SR and no significant ST-T wave changes. -Normal coronaries on left heart cathetarization. Status: Acute (3) Hypertension: started on metoprolol,imdur and further med changes based on BP. Status: Acute Qualifiers: Hypertension type: essential hypertension Qualified Code(s): I10 - Essential (primary) hypertension (4) RADHA (acute kidney injury): Creatinine 1.8 today Status: Acute (5) Type 1 diabetes mellitus: Status: Acute (6) Microcytic anemia: Status: Acute Additional A&P Information Chronic active smoker Obesity Anxiety Thank you for allowing me to participate in patient's care. Please feel free to call with questions or concerns. Attestations Medical Necessity Statement*: Needs hospital stay for CHF and medication titra tion Coding Level of Care Code Acute Residential Construction Instructor for [facility] Fwd Diagnoses Heart failure I50.21 Heart failure type: systolic Heart failure chronicity: acute NSTEMI (non-ST elevated myocardial infarction) I21.4 Hypertension I10 Hypertension type: essential hypertension RADHA (acute kidney injury) N17.9 Type 1 diabetes mellitus E10.9 Microcytic anemia D50.9
--- NOTE | 2020-11-12 13:52 | PM.PN ---
Subjective Subjective: Interval history: Patient was examined this morning, he tells me that he is doing better, his swelling has improved, he is a bit concerned about undergoing angiogram with his chronic kidney disease, either that he has no other concerns Vitals/I&O/Wt Last Vital Signs Temp 98.3 F 11/12/20 08:48 Pulse 71 11/12/20 08:16 Resp 18 11/12/20 08:16 BP 166/94 11/12/20 08:16 Pulse Ox 96 11/12/20 08:16 11/11/20 11/12/20 11/12/20 22:59 06:59 14:59 Intake Total 320 / 680 240 / 920 Output Total 800 / 3445 400 / 3845 630 / 630 Balance -480 / -2765 -160 / -2925 -630 / -630 Weight last 48 hrs Weight 86.636 kg Weight 105.868 kg Physical Exam Const: COMMON NORMALS: no acute distress and patient oriented x3 HENMT: COMMON NORMALS: normocephalic HEAD & SCALP: normocephalic Neck/C-Spine: COMMON NORMALS: no JVD Resp: COMMON NORMALS: normal respiratory effort, No retractions, No use of accessory muscles and clear to auscultation bilaterally AUSCULTATION: clear to auscultation bilaterally Cardio: COMMON NORMALS: no JVD, regular rate, regular rhythm, S1 normal heart sound present and S2 normal heart sound present RATE: regular rate RHYTHM: regular rhythm HEART SOUNDS: S1 normal heart sound present and S2 normal heart sound present GI: COMMON NORMALS: Normal to inspection, nondistended, normoactive bowel sounds present, Soft to palpation, non-tender, No hepatosplenomegaly present, no masses and no bruits PALPATION: Yes Soft to palpation and Yes No hepatosplenomegaly present Extremity: COMMON NORMALS: no calf tenderness and no pedal edema Neuro: COMMON NORMALS: patient oriented x3 Psych: COMMON NORMALS: mental status grossly normal Data : 11/12/20 04:38 11/12/20 04:38 Micro: Microbiology 11/09/20 11:05 Urine Culture - Final Urine,Clean Catch A&P Assessment and plan (1) Heart failure: Cardiology recommendations appreciated. Continuing 80 mg of Lasix p.o. daily Acute heart failure, worsening ejection fraction down to 30-35%. Risk factors of coronary disease, poorly controlled hypertension, diabetes, metabolic syndrome, active smoker. Anticipate additional evaluation by coronary angiography with timing depending on progress and renal function. Continue diuresis for CHF exacerbation, anasarca. Some edema contribution may be from calcium channel maryjane. Status: Acute Qualifiers: Heart failure type: systolic Heart failure chronicity: acute Qualified Code(s): I50.21 - Acute systolic (congestive) heart failure (2) NSTEMI (non-ST elevated myocardial infarction): Possible NSTEMI. Appreciate cardiology recommendations. Continue cardiac medications, anticoagulation. Pending additional risk stratification with left heart cath. Status: Acute (3) Hypertension: Hypertensive urgency on presentation. Blood pressures are much better. Continue to optimize. Continue diuretic. Metoprolol, Imdur. Status: Acute Qualifiers: Hypertension type: essential hypertension Qualified Code(s): I10 - Essential (primary) hypertension (4) Anasarca: Severe edema, up to thighs. Diurese. Consider switching away from calcium channel maryjane. Status: Acute (5) CKD (chronic kidney disease): Recently progressive chronic kidney disease. Noted nephrotic range proteinuria during recent admission. On evaluation by nephrology thought to be at the time secondary to diabetes. Follows with a cigarette making machine catcher on outpatient basis. Requested records. Status: Acute (6) Smoking addiction: Encourage cessation. States he has been trying to quit. 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
--- NOTE | 2020-11-12 14:07 | PC.RESP ---
Smoking Cessation information sent to patient.
[2020-11-12] MEDS: hyDRALAzine 25 mg Tablet PO ×2 (15:50→21:04)
--- NOTE | 2020-11-12 16:00 | PC.NURSE ---
TR Band off No hematoma, no bleeding, or swelling. Radial pulse +3. Activity restrictions provided and discuss to pt. Pt verbalizes understanding.
[2020-11-12] MEDS: isosorbide dinitrate 20 mg Tablet PO (17:32)
[2020-11-12 17:36] LABS: Glucose Point of Care 356 mg/dL (70-110)
--- NOTE | 2020-11-12 19:52 | PC.NURSE ---
Dr. Cordova notified of patient asking for a nicotiene patch.
--- NOTE | 2020-11-12 20:35 | PC.NURSE ---
Addendum entered by Ann Marie Vera RN 11/12/20 20:58: Entered in error. Original Note: Dr. Cordova notified of patient asking for something for a cough.
[2020-11-12 20:58] LABS: Glucose Point of Care 351 mg/dL (70-110)
[2020-11-12] MEDS: nicotine 21 mg Patch 1 PATCH TRANSDERMA (21:04)
[2020-11-12] MEDS: insulin glargine 100 units/1 mL 20 UNIT SUBCUT (21:04)
[2020-11-12] MEDS: atorvastatin 40 mg Tablet 20 MG PO (21:04)
--- NOTE | 2020-11-12 22:44 | PC.NURSE ---
Patient's oxygen saturation dropped to 80 percent while sleeping. 2 L NC placed on patient. Currently at 93 precent.
[2020-11-13] VITALS (54 sets, daily range): BP systolic 148–171; BP diastolic 75–98; PULSE 70–99; RESP 1–29; TEMP 36.6–37.2; O2SAT 90–100
[2020-11-13 05:05] LABS: Basophils # 0.1 10^3/uL (0.0-0.1); Basophils % 0.6 %; Eosinophils # 0.3 10^3/uL (0.0-0.8); Eosinophils % 3.1 %; Hematocrit 32.1 % (42.0-52.0); Hemoglobin 10.2 g/dL (11.7-16.6); Lymphocytes % 23.9 %; Mean Corpuscular HGB Conc 31.8 g/dL (30.0-36.0); Mean Corpuscular Hemoglobin 27.7 pg (28.0-34.0); Mean Corpuscular Volume 87.2 fL (80-94); Mean Platelet Volume 10.8 fL (7.4-10.4); Monocytes # 0.6 10^3/uL (0.2-0.9); Monocytes % 6.9 %; Neutrophils # 5.47 10^3/uL (1.8-7.7); Neutrophils % 65.3 %; Nucleated Red Blood Cells % 0 %; Platelet Count 262 10^3/cmm (130-400); Red Blood Count 3.68 10^6/uL (4.1-5.3); Red Cell Distribution Width 13.2 % (12.1-15.1); White Blood Count 8.4 10^3/uL (4.0-10.0)
[2020-11-13 05:18] LABS: Alanine Aminotransferase 28 U/L (0-41); Albumin Level 2.5 g/dL (3.5-5.2); Alkaline Phosphatase 70 IU/L (40-130); Aspartate Amino Transferase 38 U/L (0-40); Blood Urea Nitrogen 18 mg/dL (6-20); Calcium 8.2 mg/dL (8.5-10.5); Carbon Dioxide 28 mmol/L (22-29); Chloride 106 mmol/L (98-107); Globulin 3.1 g/dL (1.3-4.6); Glomerular Filtration Rate 39.4 mL/min (90-130); Glucose 66 mg/dL (65-115); Osmolality Calculated 292 mOsm/kg (285-295); Sodium 141 mmol/L (136-145); Total Bilirubin 0.3 mg/dL (0.15-1.2); Total Protein 5.6 g/dL (6.6-8.7)
[2020-11-13 05:19] LABS: Magnesium 1.9 mg/dL (1.7-2.3); Phosphorus 4.5 mg/dL (2.5-4.5)
--- NOTE | 2020-11-13 06:41 | PC.NURSE ---
Right wrist site WNL.
[2020-11-13 06:55] LABS: Glucose Point of Care 88 mg/dL (70-110)
--- NOTE | 2020-11-13 07:35 | PC.NURSE ---
Pt sitting up in bed talking to staff. Pt A&Ox4, Resp even and non-labored no distress noted. Pt had no c/o pain or discomfort at the present time. No needs voiced. Call light in reach.
[2020-11-13] MEDS: FUROsemide 40 mg Tablet 80 MG PO (08:24)
[2020-11-13] MEDS: hyDRALAzine 25 mg Tablet PO (08:24)
[2020-11-13] MEDS: BuSPIRONE 10 mg Tablet PO (08:24)
[2020-11-13] MEDS: ferrous sulfate EC 325 mg Tablet PO (08:24)
[2020-11-13] MEDS: potassium chloride ER 20 mEq Tablet 40 MEQ PO (08:24)
[2020-11-13] MEDS: metoprolol succinate ER (24 HR) 50 mg Tablet PO (08:24)
[2020-11-13] MEDS: pantoprazole DR 40 mg Tablet PO (08:25)
[2020-11-13] MEDS: isosorbide dinitrate 20 mg Tablet PO (08:25)
[2020-11-13] MEDS: insulin glargine 100 units/1 mL 30 UNIT SUBCUT (09:51)
--- NOTE | 2020-11-13 10:27 | PC.CHAP ---
Pastoral Care Encounter/Spiritual Assessment Type of Contact [] Declined catering convention services manager visit [] Patient/Family/Request visit [] Outpatient visit [] Follow-up visit [] Physician referral [] Code/Alert [x] Routine visit [] Staff referral [] Actively dying [] Patient sleeping [] Family support [] [] Out of room [] Palliative care [] [] Receiving care in room [] Pre-surgical visit [] Trauma [] Long length of stay [] ICU visit [] Other: Relational/Emotional Strength [] Patient feels connected with others/family/visitors/staff [] Distress [] Loneliness/isolation [] Abandonment Spirituality of Patient [] Person of Amita [] Attends Anabaptist of their Amita [] Believes in Prayer [] Reads Bible or Jew materials [] There are Spiritual issues to be addressed Wood Patternmaker Interventions [x] Prayer [x] Active listening [x] Non-anxious presence [x] Spiritual/emotional support [] Crisis/trauma care [] Spiritual counseling [] Bereavement support [] Provided bereavement packet [] Provided Bible/devotional materials [] Provided toy/stuffed animal, coloring book to patient or family member [] Provided Communion [] Anointing/[place] [] Salvation [] Completed spiritual assessment [] Other: Impact on Illness or Injury [] Angry [] Fearful [] Anxious [] Often cries [] Exhaustion [] Unable to work [] Unable to attend latter-day [] Unable to walk/stand [] Unable to read [] Unable to drive [] Unable to eat/drink [] Unable to sleep [] Unable to be with family [] Patient intubated [] Other: Summary young man feeling much stronger... Time spent with patient 10 min
--- NOTE | 2020-11-13 10:39 | P.PN_ITS ---
Subjective Subjective: Interval history: He feels better. No CP. excellent UO; LOS-12 L He underwent coronary angiogram via right radial. Normal coronaries on [facility] Medications: Reviewed: Yes Medication Review Details: Current Medications Acetaminophen (Acetaminophen 325 Mg Tablet) 650 mg PO Q6H PRN PRN Reason: Mild/Mod Pain Or Temp >/= 101 Aspirin (Aspirin 325 Mg Tablet) 325 mg PO DAILY [facility] Last Admin: 11/10/20 08:38 Dose: 325 mg Documented by: Atorvastatin Calcium (Atorvastatin 40 Mg Tablet) 80 mg PO BEDTIME [facility] Last Admin: 11/09/20 21:35 Dose: 80 mg Documented by: Buspirone HCl (Buspirone 10 Mg Tablet) 10 mg PO BID@0800,2200 [facility] Last Admin: 11/10/20 08:37 Dose: 10 mg Documented by: Dextrose (Dextrose 50% Syringe 50 Ml) 25 ml IVP ONCE PRN; Protocol PRN Reason: hypoglycemia protocol Dextrose (Dextrose 50% Syringe 50 Ml) 50 ml IVP PRN PRN; Protocol PRN Reason: hypoglycemia protocol Enoxaparin Sodium (Enoxaparin 120 Mg/0.8 Ml Syringe) 115 mg SUBCUT Q12H [facility] Last Admin: 11/10/20 17:56 Dose: 115 mg Documented by: Ferrous Sulfate (Ferrous Sulfate Ec 325 Mg Tablet) 325 mg PO EVERY OTHER DAY [facility] Furosemide (Furosemide 10 Mg/Ml Sdv 10ml) 80 mg IVP Q12H [facility] Last Admin: 11/10/20 17:56 Dose: 80 mg Documented by: Glucagon (Glucagon 1 Mg/Ml Inj 1 Ml) 1 mg IM ONCE PRN; Protocol PRN Reason: Adult Acute Hypoglycemia Prot. Dextrose (D5w) 500 mls @ 100 mls/hr IV ONCE PRN; Protocol PRN Reason: Adult Acute Hypoglycemia Prot Insulin Aspart (Insulin Aspart 100 Unit/1 Ml) 0 unit SUBCUT WM&BEDTIME [facility]; Protocol Last Admin: 11/10/20 17:48 Dose: Not Given Documented by: Insulin Glargine (Insulin Glargine 100 Units/1 Ml) 20 unit SUBCUT BEDTIME [facility] Last Admin: 11/09/20 21:37 Dose: 20 unit Documented by: Insulin Glargine (Insulin Glargine 100 Units/1 Ml) 30 unit SUBCUT DAILY [facility] Last Admin: 11/10/20 08:32 Dose: 30 unit Documented by: Isosorbide Mononitrate (Isosorbide Mononitrate Er 30 Mg Tablet) 30 mg PO DAILY [facility] Last Admin: 11/10/20 08:37 Dose: 30 mg Documented by: Metoprolol Tartrate (Metoprolol Tartrate 25 Mg Tablet) 25 mg PO BID@0900,2100 [facility] Last Admin: 11/10/20 08:37 Dose: 25 mg Documented by: Ondansetron HCl (Ondansetron 2 Mg/Ml Sdv 2 Ml) 4 mg IVP Q6H PRN PRN Reason: NAUSEA AND VOMITING Last Admin: 11/09/20 17:51 Dose: 4 mg Documented by: Pantoprazole Sodium (Pantoprazole Dr 40 Mg Tablet) 40 mg PO DAILY@0800 [facility] Last Admin: 11/10/20 08:38 Dose: 40 mg Documented by: Potassium Chloride (Potassium Chloride Er 20 Meq Tablet) 40 meq PO DAILY [facility] Last Admin: 11/10/20 08:37 Dose: 40 meq Documented by: Vitals/I&O/Wt Last Vital Signs Temp 97.9 F 11/13/20 07:46 Pulse 73 11/13/20 07:46 Resp 18 11/13/20 07:46 BP 166/85 11/13/20 07:46 Pulse Ox 99 11/13/20 07:46 11/12/20 11/13/20 11/13/20 22:59 06:59 14:59 Intake Total 1013.5 / 1373.5 300 / 1673.5 120 / 120 Output Total 1495 / 2625 700 / 3325 350 / 350 Balance -481.5 / -1251.5 -400 / -1651.5 -230 / -230 Weight last 48 hrs Weight 191 lb Physical Exam Narrative: EXAM NARRATIVE: GENERAL: Young man sitting in bed propped up in no acute distress HEENT: Extraocular movement intact. Pupils equal round reactive to light. No pallor or icterus. NECK: central trachea, No JVD. No carotid bruit. CARDIOVASCULAR SYSTEM: S1-S2 regular. No S3 or S4 present. No murmur rubs or gallops. RESPIRATORY SYSTEM: Chest clear to auscultation. No wheezes rhonchi or rubs heard. No use of accessory muscles. ABDOMEN: Soft, nontender and nondistended. Normal bowel sounds present. EXTREMITIES: No cyanosis or clubbing. trace bilateral ankle edema. No signs of chronic venous insufficiency. right wrist with 2+ radial and no bruising or hematoma [employer] ARCHITECT: Patient is alert oriented ?3. No focal neurological deficits. SKIN: Normal turgor and temperature. PSYCH: Normal insight and judgment. Data : 11/13/20 04:20 11/13/20 04:20 A&P Assessment and plan (1) Heart failure: Fairly compensated. -continue lasix 80 mg PO daily. -NICM, start on isodril 20 TID, hydralazine 25 mg TID and changed to metoprolol succinate 50 mg daily. -No ACEI/ARB or ARNI given abnormal renal function. -add aldactone 12.5 mg daily based on renal function and BP as outpatient. -Stable to be dischrged today. -Follow up with Ms. Lisa Heredia in 1 week and with me in 1 month -F/U BMP, Mg, BNP in 1 week Status: Acute Qualifiers: Heart failure type: systolic Heart failure chronicity: acute Qualified Code(s): I50.21 - Acute systolic (congestive) heart failure (2) NSTEMI (non-ST elevated myocardial infarction): Likely Type 2 in setting of decompensated CHF -No chest pain, however has SIMPSON and decompensated CHF. -Drop in LV function with RWMA. EKG with SR and no significant ST-T wave changes. -Normal coronaries on left heart cathetarization. Status: Acute (3) Hypertension: further med changes based on BP log. Status: Acute Qualifiers: Hypertension type: essential hypertension Qualified Code(s): I10 - Essential (primary) hypertension (4) RADHA (acute kidney injury): RADHA/CKD (baseline 1.7-1.8) -Creatinine 2 today Status: Acute (5) Type 1 diabetes mellitus: Status: Acute (6) Microcytic anemia: Status: Acute Additional A&P Information Chronic active smoker : counselled on smoking cessation Obesity Anxiety Thank you for allowing me to participate in patient's care. Please feel free to call with questions or concerns. Attestations Medical Necessity Statement*: Stable for discharge Time Spent in Patient Care: Greater than 35 minutes (>than 50% of time spent in counselling and/or direct pt care on unit) . Coding Level of Care Code Acute Intensivist for Chg Fwd Diagnoses Heart failure I50.21 Heart failure type: systolic Heart failure chronicity: acute NSTEMI (non-ST elevated myocardial infarction) I21.4 Hypertension I10 Hypertension type: essential hypertension RADHA (acute kidney injury) N17.9 Type 1 diabetes mellitus E10.9 Microcytic anemia D50.9
[2020-11-13 10:54] LABS: Glucose Point of Care 258 mg/dL (70-110)
--- NOTE | 2020-11-13 12:33 | PM.DCS ---
Discharge Providers Date of Admission: 11/09/20 13:53 Date of Discharge: November 13, 2020 Attending Provider at Admission: Reji Avila Attending Provider at Discharge: Chu Raphael MD Primary Care Provider: Alex Escamilla Diagnoses at Discharge Discharge Diagnosis (1) Heart failure: Status: Acute Qualifiers: Heart failure type: systolic Heart failure chronicity: acute Qualified Code(s): I50.21 - Acute systolic (congestive) heart failure (2) NSTEMI (non-ST elevated myocardial infarction): Status: Acute (3) Hypertension: Status: Acute Qualifiers: Hypertension type: essential hypertension Qualified Code(s): I10 - Essential (primary) hypertension (4) RADHA (acute kidney injury): Status: Acute (5) Type 1 diabetes mellitus: Status: Acute (6) Microcytic anemia: Status: Acute Reason for Visit Reason for Visit: BLE EDEMA Hospital Course Hospital Course This is a 30-year-old patient with a past medical history of type 1 diabetes mellitus, recent onset of CHF, recent RADHA on CKD, smoker, history of asthma who presents [facility] due to complaints of shortness of breath and bilateral extremity swelling Patient was admitted to [facility] for exacerbation of systolic heart failure, his ejection fraction was 30 to 35%, received inpatient diuresis, clinically improved, discharged on Lasix 80 mg daily. Patient is to follow-up with cardiology as outpatient, repeat BMP, magnesium, BnP in 1 week. Patient also had an NSTEMI on admission, underwent a coronary angiogram with no significant obstructive CAD. Discharged on Isodril 20 mg 3 times daily y, hydralazine 25 mg 3 times daily, Toprol succinate 50 mg daily. He was not discharged on DUY or ARB given his RADHA on CKD. For his RADHA was on CKD, likely component of cardiorenal syndrome, patient is to follow-up with nephrology as outpatient Patient had episodes of nocturnal hypoxia, however ordered a sleep study, patient should follow with his primary care provider for results and consideration of sleep titration as this could be an etiology behind his heart failure. Physical Exam Const: COMMON NORMALS: no acute distress and patient oriented x3 HENMT: COMMON NORMALS: normocephalic HEAD & SCALP: normocephalic Neck/C-Spine: COMMON NORMALS: no JVD Resp: COMMON NORMALS: normal respiratory effort, No retractions, No use of accessory muscles and clear to auscultation bilaterally AUSCULTATION: clear to auscultation bilaterally Cardio: COMMON NORMALS: no JVD, regular rate, regular rhythm, S1 normal heart sound present and S2 normal heart sound present RATE: regular rate RHYTHM: regular rhythm HEART SOUNDS: S1 normal heart sound present and S2 normal heart sound present GI: COMMON NORMALS: Normal to inspection, nondistended, normoactive bowel sounds present, Soft to palpation, non-tender, No hepatosplenomegaly present, no masses and no bruits PALPATION: Yes Soft to palpation and Yes No hepatosplenomegaly present Extremity: COMMON NORMALS: capillary refill normal, no clubbing, cyanosis or edema, no calf tenderness and no pedal edema Neuro: COMMON NORMALS: patient oriented x3 Psych: COMMON NORMALS: mental status grossly normal Discharge Data Data Completed and Pending: Completed Studies During Hospitalization Category Date Time Status XR chest 1V erasmo ble [id number] Stat Exams 11/09/20 08:46 Completed CV echo limited 9 [id number] Urgent Ultrasound 11/09/20 10:21 Completed Pending at discharge Category Date Time Status CIRCULAR CLERK request for service Routin e Exams 11/12/20 09:07 Taken Complete Blood Co unt w/Auto AM LABS Lab 11/14/20 04:00 Ordered Complete Blood Co unt w/Auto AM LABS Lab 11/15/20 04:00 Ordered Comprehensive Met abolic Panel AM LA BS Lab 11/14/20 04:00 Ordered Comprehensive Met abolic Panel AM LA BS Lab 11/15/20 04:00 Ordered Magnesium AM LABS Lab 11/14/20 04:00 Ordered Magnesium AM LABS Lab 11/15/20 04:00 Ordered Phosphorus AM LAB S Lab 11/14/20 04:00 Ordered Phosphorus AM LAB S Lab 11/15/20 04:00 Ordered Labs from last 24 hours 11/13/20 11/13/20 11/13/20 10:35 06:52 04:20 WBC RBC Hgb Hct MCV MCH MCHC RDW Plt Count MPV Neut % (Auto) Lymph % (Auto) [place] % (Auto) Eos % (Auto) Baso % (Auto) Neut # (Auto) Lymph # (Auto) [place] # (Auto) Eos # (Auto) Baso # (Auto) Nucleated RBC % (a uto) Nucleated RBCs # Sodium Potassium Chloride Carbon Dioxide Anion Gap BUN Creatinine GFR Calculation Glucose POC Glucose 258 H 88 Calculated Osmolal ity Calcium Phosphorus 4.5 Magnesium 1.9 Total Bilirubin AST ALT Alkaline Phosphata se Total Protein Albumin Globulin 11/13/20 11/13/20 11/12/20 04:20 04:20 19:12 WBC 8.4 RBC 3.68 L Hgb 10.2 L Hct 32.1 L MCV 87.2 MCH 27.7 L MCHC 31.8 RDW 13.2 Plt Count 262 MPV 10.8 H Neut % (Auto) 65.3 Lymph % (Auto) 23.9 [place] % (Auto) 6.9 Eos % (Auto) 3.1 Baso % (Auto) 0.6 Neut # (Auto) 5.47 Lymph # (Auto) 2.0 [place] # (Auto) 0.6 Eos # (Auto) 0.3 Baso # (Auto) 0.1 Nucleated RBC % (a uto) 0 Nucleated RBCs # 0.0 Sodium 141 Potassium 4.0 Chloride 106 Carbon Dioxide 28 Anion Gap 11.0 BUN 18 Creatinine 2.0 H GFR Calculation 39.4 L Glucose 66 POC Glucose 351 H Calculated Osmolal ity 292 Calcium 8.2 L Phosphorus Magnesium Total Bilirubin 0.3 AST 38 ALT 28 Alkaline Phosphata se 70 Total Protein 5.6 L Albumin 2.5 L Globulin 3.1 11/12/20 17:31 WBC RBC Hgb Hct MCV MCH MCHC RDW Plt Count MPV Neut % (Auto) Lymph % (Auto) [place] % (Auto) Eos % (Auto) Baso % (Auto) Neut # (Auto) Lymph # (Auto) [place] # (Auto) Eos # (Auto) Baso # (Auto) Nucleated RBC % (a uto) Nucleated RBCs # Sodium Potassium Chloride Carbon Dioxide Anion Gap BUN Creatinine GFR Calculation Glucose POC Glucose 356 H Calculated Osmolal ity Calcium Phosphorus Magnesium Total Bilirubin AST ALT Alkaline Phosphata se Total Protein Albumin Globulin Vitals: Last Vital Signs Temp 98.6 F 11/13/20 11:36 Pulse 82 11/13/20 11:36 Resp 18 11/13/20 11:36 BP 164/83 11/13/20 11:36 Pulse Ox 99 11/13/20 11:36 Discharge Plan Discharge Patient Disposition: Home Condition: Stable Prescriptions: New furosemide 40 mg Tablet 80 mg PO DAILY@0800 30 Days Qty: 60 RF: 3 atorvastatin 40 mg Tablet 20 mg PO BEDTIME 30 Days Qty: 30 RF: 3 metoprolol succinate 50 mg Tablet Extended Release 24 Hr 50 mg PO DAILY 30 Days Qty: 30 RF: 3 hydralazine 25 mg Tablet 25 mg PO TID 30 Days Qty: 90 RF: 3 Klor-Con M20 20 mEq Tablet,Er Particles/Crystals 40 meq PO DAILY 30 Days Qty: 60 RF: 3 isosorbide dinitrate 20 mg Tablet 20 mg PO TID 30 Days Qty: 90 RF: 3 Continued buspirone 10 mg tablet 10 mg PO BID@0800,2200 RF: 0 ferrous sulfate [Feosol] 325 mg (65 mg iron) tablet 325 mg PO EVERY OTHER DAY Qty: 15 RF: 0 Levemir FlexTouch U-100 Insuln 100 unit/mL (3 mL) insulin pen See Rx Instructions .ROUTE .COMPLEX RF: 0 omeprazole 20 mg Capsule,Delayed Release(Dr/Ec) 40 mg PO DAILY@0800 RF: 0 Discontinued propranolol 60 mg capsule,extended release 24 hr 60 mg PO BID@ RF: 0 nifedipine 30 mg tablet extended release 24hr 90 mg PO DAILY@0800 RF: 0 bumetanide 1 mg tablet 2 mg PO DAILY@0800 PRN (Reason: Edema) RF: 0 Discharge Orders: Discharge Order (Routine); Ordered 11/13/20 Ordered By: Chu Raphael Other Ambulatory Orders: Sleep Study W Sleep Stage (Routine) Timeframe: 1 Week Location: None Selected Ordered By: Chu Raphael Referrals: Lisa Heredia FNP [Nurse Practitioner] - 4-7 days (Follow up for site check and BMP post [facility]) Zoie Chaney MD [Physician] - 1 month Discharge Diet: Cardiac Discharge Activity: Resume usual activity Activity Restrictions/Additional Instructions: -Please follow-up with primary care provider in 1 week for sleep study Discharge Attestations Time Spent in Discharge Care*: less than 30 min Quality Metrics Clinical Quality Measures During this hospital stay, did patient experience: None Coding Level of Care Code Acute g FW DC note Diagnoses Heart failure I50.21 Heart failure type: systolic Heart failure chronicity: acute NSTEMI (non-ST elevated myocardial infarction) I21.4 Hypertension I10 Hypertension type: essential hypertension RADHA (acute kidney injury) N17.9 Type 1 diabetes mellitus E10.9 Microcytic anemia D50.9
--- NOTE | 2020-11-13 15:32 | PC.NURSE ---
Pt discharged home. IV removed no redness or swelling noted. Pts discharge instructions given along with prescriptions and follow up appointment. Pt had no c/o pain or discomfort at the time of discharge. Pt transferred out via wheelchair accompanied by staff.
== END 2020-11-13 15:00 | disposition home or self-care (01) | DRG 280 ==
LOC: ER 08:59 → CSU 15:25
PROVIDERS: Internal Medicine Cardiovascular Disease; Admitting Provider Internal Medicine; Emergency Provider Family Medicine; PCP Family Medicine; Visit Provider Family Medicine
PROC: B211YZZ Fluoroscopy of Multiple Coronary Arteries using Other Contrast (ICD-10-PCS; principal; 2020-11-12 12:00)
DX: I13.0 Hypertensive heart and chronic kidney disease with heart failure and stage 1 through stage 4 chronic kidney disease, or unspecified chronic kidney disease (principal); I50.23 Acute on chronic systolic (congestive) heart failure; I21.A1 Myocardial infarction type 2; N17.9 Acute kidney failure, unspecified; N18.9 Chronic kidney disease, unspecified; E10.22 Type 1 diabetes mellitus with diabetic chronic kidney disease; I16.0 Hypertensive urgency; F41.9 Anxiety disorder, unspecified; F17.210 Nicotine dependence, cigarettes, uncomplicated; G47.30 Sleep apnea, unspecified; Z87.01 Personal history of pneumonia (recurrent); J44.9 Chronic obstructive pulmonary disease, unspecified; D63.1 Anemia in chronic kidney disease; E66.9 Obesity, unspecified; Z68.25 Body mass index [BMI] 25.0-25.9, adult; E10.21 Type 1 diabetes mellitus with diabetic nephropathy
CPT/HCPCS: 36415; 36416; 71045; 80053; 80061; 80306; 81001; 82962; 83036; 83735; 83880; 84100; 84484; 85025; 87086; 93005; 93308; 93454; 94664; 96372; 96374; 99285; C1769; C1887; C1894; J1644; J1650; J1815 ×2; J1940; J2250; J2405; J3010; J7030; Q0163; Q9967

== ENCOUNTER 2020-12-06 20:00 | Outpatient (CLI) | payer OTHER, SELFPAY | END 2020-12-06 20:01 | disposition home or self-care (01) | LOC: SLEEP 12-07 09:28 | PROVIDERS: PCP Family Medicine; Visit Provider Family Medicine | DX: G47.33 Obstructive sleep apnea (adult) (pediatric) (principal); G47.34 Idiopathic sleep related nonobstructive alveolar hypoventilation; I50.9 Heart failure, unspecified | CPT/HCPCS: 95810 ==

== ENCOUNTER → 2020-12-25 16:23 | Outpatient (BNVA) | payer OTHER, SELFPAY | PROVIDERS: PCP Family Medicine; Visit Provider Internal Medicine Cardiovascular Disease | DX: I50.21 Acute systolic (congestive) heart failure (principal) | CPT/HCPCS: 80048; 83735; 83880 ==

== ENCOUNTER 2021-07-10 22:34 | Emergency (ER) | payer SELFPAY ==
[2021-07-10 22:39] VITALS: BP 211/119; PULSE 111; RESP 18; TEMP 37.2; O2SAT 98; BMI 27.8
--- NOTE | 2021-07-10 22:53 | ED_ITS ---
HPI - Dental/Oral General: Chief complaint: Dental/Oral Stated complaint: Tooth Ache Time Seen by Provider: 07/10/21 22:35 History of Present Illness: HPI Narrative: Patient is a 31-year-old male comes to the ED with dental pain. Patient says pain started yesterday. The dental pain is located on tooth #17 is a back left lower molar. Tooth was fractured in the past and he is currently in the process of trying to get set up with a local dentist to have tooth fixed. Associated symptoms: Denies fever(s) or odynophagia Review of Systems Const: Denies: fever(s), chills or fatigue Eyes: Denies: change in vision or eye discomfort ENMT: Reports: dental pain (back left lower molar); Denies: throat pain, odynophagia, nasal discharge or nasal congestion Card: Denies: chest pain, palpitations, edema, swelling of feet/ankles, dyspnea on exertion or orthopnea Resp: Denies: dyspnea, productive cough or non-productive cough GI: Denies: abdominal pain, nausea, vomiting, diarrhea, constipation or hemato chezia : Denies: flank pain, difficulty urinating, dysuria or hematuria Musc: Denies: neck pain, back pain or extremity swelling Skin/Breast: Denies: rash or new lesions Neuro: Denies: headache(s), numbness in extremities or weakness in extremities PFSH ED PFSH: Medical History Anxiety COPD (chronic obstructive pulmonary disease) Heart failure Hypertension New onset of congestive heart failure Sleep apnea Type 1 diabetes mellitus Surgical History H/O hand surgery Family History Mother Diabetes Type 1 diabetes and CHF Other CAD (coronary artery disease) Social History Smoking and tobacco status: current every day smoker cigarettes Packs smoked per day: 1 Years cigarettes smoked: 15 [ Other cigarette details: Also chews tobacco ] Alcohol intake: current Alcohol intake frequency: holidays/special occasions only Housing: House Physical Exam Const: COMMON NORMALS: patient oriented x3, healthy appearing and alert GENERAL APPEARANCE: cooperative and comfortable HENMT: COMMON NORMALS: normocephalic HEAD & SCALP: normocephalic MOUTH: Normal oral and palatal mucosa present TEETH & GINGIVA: Yes abnormal tooth and associated gingiva lower left third molar tender and enamel fractured and Yes caries THROAT: posterior oropharynx normal and uvula midline Neck/C-Spine: COMMON NORMALS: supple GENERAL: Yes normal visual inspection Resp: COMMON NORMALS: normal respiratory effort, No retractions, No use of accessory muscles and clear to auscultation bilaterally AUSCULTATION: clear to auscultation bilaterally Cardio: COMMON NORMALS: regular rate, regular rhythm, S1 normal heart sound present, S2 normal heart sound present, No gallops present (Cardio), No clicks present (Cardio), No murmurs present (Cardio) and Peripheral pulses 2+ throughout RATE: regular rate RHYTHM: regular rhythm HEART SOUNDS: S1 normal heart sound present and S2 normal heart sound present PERIPHERAL PULSES: Peripheral pulses 2+ throughout GI: COMMON NORMALS: Normal to inspection, nondistended, normoactive bowel sounds present, Soft to palpation, non-tender and no masses PALPATION: Yes Soft to palpation : COMMON NORMALS: Yes no CVA tenderness BLADDER/KIDNEY EXAM: Yes no CVA tenderness Back/Pelvis: COMMON NORMALS: no CVA tenderness Extremity: COMMON NORMALS: normal to inspection Neuro: COMMON NORMALS: patient oriented x3 and moves all extremities SENSORIUM/ORIENTATION: Yes alert Skin: GENERAL SKIN EXAM: dry skin Course Vital Signs: Vital signs: Vital Signs Temperature 99.0 F 07/10/21 22:39 Pulse Rate 111 H 07/10/21 22:39 Respiratory Rate 18 07/10/21 22:39 Blood Pressure 211/119 07/10/21 22:39 Pulse Oximetry 98 07/10/21 22:39 MDM - Dental/Oral MDM Narrative: Medical decision making narrative: Patient is a 31-year-old male comes to the ED with dental pain. He is currently in the process of getting an appointment set up with a local dentist. He was given a dose of hydrocodone and clindamycin while here in the ED. He was discharged home with a prescription for hydrocodone and clindamycin. He was told to follow-up with his dentist for further evaluation. Return to ED precautions given. Patient. Plan. Discharge Plan Discharge Patient Disposition: Home Clinical Impression: Toothache Condition: Stable Prescriptions: New clindamycin HCl 150 mg capsule 300 mg PO QID 7 Days Qty: 56 RF: 0 ibuprofen 800 mg tablet 800 mg PO Q8H PRN (Reason: pain) Qty: 20 RF: 0 No Action atorvastatin 40 mg tablet 20 mg PO BEDTIME Qty: 45 RF: 3 carvedilol 6.25 mg tablet 6.25 mg PO BID Qty: 60 RF: 6 isosorbide mononitrate 30 mg tablet extended release 24 hr 30 mg PO BID Qty: 60 RF: 6 hydralazine 50 mg tablet 75 mg PO TID Qty: 135 RF: 6 furosemide 40 mg tablet 80 mg PO DAILY@0800 30 Days Qty: 60 RF: 3 Klor-Con M20 20 mEq tablet,ER particles/crystals 40 meq PO DAILY Qty: 180 RF: 3 buspirone 10 mg tablet 10 mg PO BID@0800,2200 RF: 0 Levemir FlexTouch U-100 Insuln 100 unit/mL (3 mL) insulin pen See Rx Instructions .ROUTE .COMPLEX RF: 0 omeprazole 20 mg Capsule,Delayed Release(Dr/Ec) 40 mg PO DAILY@0800 RF: 0 Discharge Orders: Discharge ED (Routine); Ordered 07/10/21 Ordered By: Varun Abdi Referrals: Alex Escamilla [Primary Care Provider] - Discharge Diet: Regular Discharge Activity: Resume usual activity Patient Instructions: Toothache (ED), Opioid Safety Activity Restrictions/Additional Instructions: Follow-up with dentist as soon as possible to have dental issue fixed. Take medications as prescribed. Return to the ER or your medical provider if condition worsens. Please read and understand discharge instructions. Thank you for choosing [facility] for your healthcare needs today. Please realize this is an emergency room and that we are providing you with a medical screening exam and this may not be complete and all inclusive of all the testing and or work up that you may need to determine your ailment or severity of your illness. It is very important that you follow up as instructed or that you return to the Emergency Department should you have concerns or if your condition changes or worsens in any way. 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
[2021-07-10] MEDS: HYDROcodone-acetaminophen 7.5-325 mg Tablet 1 TAB PO (23:08)
[2021-07-10] MEDS: clindamycin 150 mg Capsule 300 MG PO (23:08)
== END 2021-07-10 23:10 | disposition home or self-care (01) ==
PROVIDERS: Emergency Provider Physician Assistant; PCP Family Medicine
DX: K08.89 Other specified disorders of teeth and supporting structures (principal); Z79.4 Long term (current) use of insulin; J44.9 Chronic obstructive pulmonary disease, unspecified; I11.0 Hypertensive heart disease with heart failure; I50.9 Heart failure, unspecified; E10.9 Type 1 diabetes mellitus without complications; F17.210 Nicotine dependence, cigarettes, uncomplicated
CPT/HCPCS: 99283

== ENCOUNTER 2021-11-17 13:46 | Emergency (ER) | payer OTHER, SELFPAY ==
--- NOTE | 2021-11-17 13:49 | XR_ITS ---
WS: [id number] Exam: XR chest 1V portable [id number] Date/Time of Exam: 11/17/2021 2:29 PM Reason For Exam: fever Comparison 11/09/2020. Findings: The lungs are clear and fully expanded. Costophrenic angles are sharp. No infiltrates. Bronchovascula r relief appears normal. Cardiac silhouette is unremarkable. Bony elements are intact. XR/XR chest 1V portable [id number] IMPRESSION: Unremarkable chest radiograph.
[2021-11-17 13:58] VITALS: BP 163/87; PULSE 112; RESP 22; TEMP 38; O2SAT 97; BMI 29.8
--- NOTE | 2021-11-17 14:15 | W.ED.SOB ---
HPI - SOB/Dyspnea General: Chief Complaint: Shortness of Breath/Dyspnea Stated Complaint: Cough, [place], congestion, chills Time Seen by Provider: 11/17/21 13:49 Source: patient Mode of arrival: ambulatory Limitations: no limitations History of Present Illness: HPI Narrative: 31-year-old male states of the last 2 days has had cough fever and body aches. He has had a temperature up to 101 he states that he has had people in his household with influenza and has had very close contact. He had some nausea and vomiting denies diarrhea. States that he has generalized body aches. Associated symptoms: Reports fever(s); Deny abdominal pain, chest pain, nausea or vomiting Review of Systems Const: Reports: fever(s), chills and body aches Eyes: Denies: blurry vision or eye discomfort ENMT: Denies: throat pain or dental pain Card: Denies: chest pain Resp: Reports: non-productive cough GI: Denies: abdominal pain, nausea, vomiting or diarrhea : Denies: dysuria Musc: Denies: neck pain or back pain Skin/Breast: Denies: rash Neuro: Denies: headache(s) Psych: Denies: depression Farhan/Lymph: Denies: easy bruising All/Imm: Denies: urticaria PFSH ED PFSH: Medical History Anxiety COPD (chronic obstructive pulmonary disease) Heart failure Hypertension New onset of congestive heart failure Sleep apnea Type 1 diabetes mellitus Surgical History H/O hand surgery Family History Mother Diabetes Type 1 diabetes and CHF Other CAD (coronary artery disease) Social History Smoking and tobacco status: current every day smoker cigarettes Packs smoked per day: 1 Years cigarettes smoked: 15 [ Other cigarette details: Also chews tobacco] Alcohol intake: current Alcohol intake frequency: holidays/special occasions only Housing: House Physical Exam Const: COMMON NORMALS: no acute distress, patient oriented x3 and healthy appearing HENMT: COMMON NORMALS: normocephalic and atraumatic HEAD & SCALP: normocephalic and atraumatic Eye: COMMON NORMALS: Equal, round and reactive pupils present and EOMs intact bilaterally PUPIL: Yes Equal, round and reactive pupils present Neck/C-Spine: COMMON NORMALS: full ROM and supple Chest: COMMONS NORMALS: normal inspection of the chest and normal palpation of entire chest wall Resp: COMMON NORMALS: normal respiratory effort, No retractions, No use of accessory muscles and clear to auscultation bilaterally AUSCULTATION: clear to auscultation bilaterally Cardio: COMMON NORMALS: regular rate, regular rhythm and No murmurs present (Cardio) RATE: regular rate RHYTHM: regular rhythm GI: COMMON NORMALS: Normal to inspection, nondistended, normoactive bowel sounds present, Soft to palpation, non-tender and no masses PALPATION: Yes Soft to palpation Extremity: COMMON NORMALS: normal to inspection and full ROM Neuro: COMMON NORMALS: patient oriented x3, moves all extremities and no focal motor deficits Psych: COMMON NORMALS: mental status grossly normal, Normal thought process present and cooperative THOUGHT PROCESS: Normal thought process present Skin: COMMON NORMALS: no rashes or lesions noted and no wounds GENERAL SKIN EXAM: no rashes or lesions noted Course Vital Signs: Vital signs: Vital Signs Temperature 100.4 F H 11/17/21 13:58 Pulse Rate 112 H 11/17/21 13:58 Respiratory Rate 22 H 11/17/21 13:58 Blood Pressure 163/87 11/17/21 13:58 Pulse Oximetry 97 11/17/21 13:58 MDM - SOB/Dyspnea Medical Decision Making Patient presents with cough fever body aches likely influenza he has had multiple contacts with people with documented flu we will start patient on Tamiflu he is to continue Motrin Tylenol at home. We will give him Zofran as well. X-ray shows no signs of pneumonia. He is to follow-up with PCP and return if worsening. Discharge Plan Discharge Patient Disposition: Home Clinical Impression: Influenza Condition: Stable Prescriptions: New ondansetron 4 mg tablet,disintegrating 4 mg PO Q6H PRN (Reason: nausea and vomiting) Qty: 14 0RF Tamiflu 75 mg capsule 75 mg PO BID 5 Days Qty: 10 0RF No Action atorvastatin 40 mg tablet 20 mg PO BEDTIME Qty: 45 3RF carvedilol 6.25 mg tablet 6.25 mg PO BID Qty: 60 6RF Rx Instructions: must administer with a meal/food isosorbide mononitrate 30 mg tablet extended release 24 hr 30 mg PO BID Qty: 60 6RF hydralazine 50 mg tablet 75 mg PO TID Qty: 135 6RF furosemide 40 mg tablet 80 mg PO DAILY@0800 30 Days Qty: 60 3RF Klor-Con M20 20 mEq tablet,ER particles/crystals 40 meq PO DAILY Qty: 180 3RF buspirone 10 mg tablet 10 mg PO BID@0800,2200 0RF Levemir FlexTouch U-100 Insuln 100 unit/mL (3 mL) insulin pen See Rx Instructions .ROUTE .COMPLEX 0RF Rx Instructions: 30 unit subcutaneously in the morning and 20 unit subcutaneously in the evening at 0800, 2200 ibuprofen 800 mg tablet 800 mg PO Q8H PRN (Reason: pain) Qty: 20 0RF omeprazole 20 mg Capsule,Delayed Release(Dr/Ec) 40 mg PO DAILY@0800 0RF Discharge Orders: Discharge ED (Routine); Ordered 11/17/21 Ordered By: Rob Watson Referrals: Alex Escamilla [Primary Care Provider] - Discharge Diet: Advance as tolerated Discharge Activity: Resume usual activity Patient Instructions: Influenza (ED) Coding Level of Care Code 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
[2021-11-17] MEDS: ondansetron 4 MG Tablet PO (14:17)
[2021-11-17] MEDS: acetaminophen 500 mg Tablet 1000 MG PO (14:17)
[2021-11-17 14:47] VITALS: BP 173/87; PULSE 106; RESP 18; TEMP 37.5; O2SAT 98
== END 2021-11-17 14:52 | disposition home or self-care (01) ==
PROVIDERS: Emergency Provider Emergency Medicine; PCP Family Medicine
DX: J11.1 Influenza due to unidentified influenza virus with other respiratory manifestations (principal); Z79.4 Long term (current) use of insulin; J44.9 Chronic obstructive pulmonary disease, unspecified; I11.0 Hypertensive heart disease with heart failure; I50.9 Heart failure, unspecified; E10.9 Type 1 diabetes mellitus without complications; F17.210 Nicotine dependence, cigarettes, uncomplicated
CPT/HCPCS: 71045; 99283; Q0162

== ENCOUNTER 2022-03-10 10:54 | Inpatient (IN) | payer OTHER, SELFPAY ==
[2022-03-10] VITALS (10 sets, daily range): BP systolic 135–165; BP diastolic 64–116; PULSE 70–104; RESP 12–19; TEMP 36.2–36.3; O2SAT 97–100; BMI 27.1
--- NOTE | 2022-03-10 11:43 | ED_ITS ---
HPI - Chest Pain General: Chief Complaint: Chest Pain Stated Complaint: Difficulty breathing Time Seen by Provider: 03/10/22 14:31 [facility] ED PFSH: Medical History Anxiety COPD (chronic obstructive pulmonary disease) Heart failure Hypertension New onset of congestive heart failure Sleep apnea Type 1 diabetes mellitus Surgical History H/O hand surgery Family History Mother Diabetes Type 1 diabetes and CHF Other CAD (coronary artery disease) Social History Smoking and tobacco status: current every day smoker cigarettes Packs smoked per day: 1 Years cigarettes smoked: 15 [ Other cigarette details: Also chews tobacco] Alcohol intake: current Alcohol intake frequency: holidays/special occasions only Housing: House Course Vital Signs: Vital signs: Vital Signs Temperature 97.1 F L 03/10/22 11:40 Pulse Rate 102 H 03/10/22 11:40 Respiratory Rate 16 03/10/22 11:40 Blood Pressure 148/106 03/10/22 11:40 Pulse Oximetry 100 03/10/22 11:40 MDM - Chest Pain Lab Data Radiology Impressions Chest X-Ray 03/10/22 11:44 IMPRESSION: Although there appear to be chronic findings in the patient's chest the current examination is suggestive of early congestive heart failure. Discharge Plan Discharge Condition: Stable Prescriptions: No Action atorvastatin 40 mg tablet 20 mg PO BEDTIME Qty: 45 3RF carvedilol 6.25 mg tablet 6.25 mg PO BID Qty: 60 6RF Rx Instructions: must administer with a meal/food isosorbide mononitrate 30 mg tablet extended release 24 hr 30 mg PO BID Qty: 60 6RF hydralazine 50 mg tablet 75 mg PO TID Qty: 135 6RF Klor-Con M20 20 mEq tablet,ER particles/crystals 40 meq PO DAILY Qty: 180 3RF furosemide 40 mg tablet 80 mg PO DAILY@0800 Qty: 60 0RF Rx Instructions: MUST make follow-up for further refills buspirone 10 mg tablet 10 mg PO BID@0800,2200 0RF Levemir FlexTouch U-100 Insuln 100 unit/mL (3 mL) insulin pen See Rx Instructions .ROUTE .COMPLEX 0RF Rx Instructions: 30 unit subcutaneously in the morning and 20 unit subcutaneously in the evening at 0800, 2200 ibuprofen 800 mg tablet 800 mg PO Q8H PRN (Reason: pain) Qty: 20 0RF omeprazole 20 mg Capsule,Delayed Release(Dr/Ec) 40 mg PO DAILY@0800 0RF ondansetron 4 mg tablet,disintegrating 4 mg PO Q6H PRN (Reason: nausea and vomiting) Qty: 14 0RF Referrals: Alex Escamilla [Primary Care Provider] - Coding Level of Care 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
--- NOTE | 2022-03-10 11:44 | XR_ITS ---
WS: [id number] XR chest 1V portable [id number] REASON FOR EXAM: dyspnea FINDINGS: Difficult to find a normal chest for comparison. Presumably the chest film from 11/17/2021 there is re lative baseline. Compared to the above examination there is moderate cardiomegaly which appears somewhat more prominen t than on the previous examination. There is accentuation of the pleural fissures on the right. There is enlargement of the upper lobe pulmonary veins. There is a subtle increase in the interstitial ret icular markings in the lower lung lopez. No other significant abnormality identified. XR/XR chest 1V portable [id number] IMPRESSION: Although there appear to be chronic findings in the patient's chest the current examination is suggestive of early congestive heart failure.
--- NOTE | 2022-03-10 11:44 | ECG_ITS ---
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 Measurements Intervals [place] Rate: 102 P: 47 NM: 137 QRS: 13 QRSD: 97 T: 57 QT: 358 QTc: 468 Interpretive Statements SINUS TACHYCARDIA POSSIBLE LEFT ATRIAL ENLARGEMENT [-0.1mV P-WAVE IN V1/V2] NONSPECIFIC T-WAVE ABNORMALITY Compared to ECG 11/09/2020 09:02:21 T-wave abnormality now present Sinus rhythm no longer present Short NM interval no longer present Electronically Signed On 03-10-2022 17:53:08 CDT by Chago Chapman M.D. [id number]
--- NOTE | 2022-03-10 14:43 | PC.NURSE ---
PT PLACED ON CONTINUOUS NIBP, SPO2, AND CM
--- NOTE | 2022-03-10 14:50 | ED_ITS ---
HPI - General Adult General: Chief complaint: Chest Pain Stated complaint: Difficulty breathing Time Seen by Provider: 03/10/22 14:31 History of Present Illness: Patient is a 31-year-old male with a history of diabetes type 1, smoking, CKD, CHF with EF of 30 to 35% from 2020 presenting to the emergency room for concerns of worsening chest pressure. Patient tells me that she first noticed chest pressure about a month ago that has been worsening and now present at rest. Patient describes on relieving pressure lasting for 30 minutes at a time. Patient reports diaphoresis nausea vomiting the last 3 days. Patient last year was found to have CHF exacerbation with hypoxemia and p ossible NSTEMI. Patient had a cath study at that point in time was unremarkable. However he is noted to have 30 to 35% EF. Patient denies any cough, runny nose, sore throat, fever/chills, abdominal complaints with nausea/vomiting or diarrhea. No complaints currently. Onset: 1 month ago Duration:ongoing x 1 month Location:home Severity:moderate Associated symptoms: Reports chest pain, dyspnea, nausea and vomiting; Deny rash or palpitations Review of Systems Const: Reports: other (+diaphoresis); Denies: fever(s) or chills Eyes: Denies: change in vision ENMT: Denies: mouth pain Card: Reports: chest pain and dyspnea on exertion; Denies: palpitations Resp: Reports: dyspnea; Denies: non-productive cough GI: Reports: nausea and vomiting; Denies: abdominal pain or diarrhea : Denies: dysuria Musc: Denies: extremity pain Skin/Breast: Denies: rash or new lesions Neuro: Denies: weakness in extremities Psych: Reports: other (Normal mood) Farhan/Lymph: Denies: easy bruising PFS ED PFSH: Medical History Anxiety COPD (chronic obstructive pulmonary disease) Heart failure Hypertension New onset of congestive heart failure Sleep apnea Type 1 diabetes mellitus Surgical History H/O hand surgery Family History Mother Diabetes Type 1 diabetes and CHF Other CAD (coronary artery disease) Social History Smoking and tobacco status: current every day smoker cigarettes Packs smoked per day: 1 Years cigarettes smoked: 15 [ Other cigarette details: Also chews tobacco] Alcohol intake: current Alcohol intake frequency: holidays/special occasions only Housing: House Physical Exam Const: COMMON NORMALS: alert HENMT: COMMON NORMALS: atraumatic HEAD & SCALP: atraumatic MOUTH: moist mucous membranes not abnormal Eye: COMMON NORMALS: EOMs intact bilaterally and conjunctivae normal CONJ UNCTIVA: Yes conjunctivae normal Neck/C-Spine: COMMON NORMALS: full ROM and supple Resp: COMMON NORMALS: normal respiratory effort and clear to auscultation bilaterally AUSCULTATION: clear to auscultation bilaterally Cardio: COMMON NORMALS: regular rate RATE: regular rate OTHER: 2+ radial pulses b/l GI: COMMON NORMALS: Soft to palpation and non-tender PALPATION: Yes Soft to palpation Extremity: COMMON NORMALS: full ROM Neuro: SENSORIUM/ORIENTATION: Yes alert MOTOR EXAM: No Abnormal motor strength present and Other motor observations present (no focal motor deficits) Psych: COMMON NORMALS: speech normal SPEECH: Yes normal speech MOOD & AFFECT: Yes euthymic mood Course Vital Signs: Vital signs: Vital Signs Temperature 97.1 F L 03/10/22 11:40 Pulse Rate 96 03/10/22 16:42 Respiratory Rate 19 H 03/10/22 16:42 Blood Pressure 159/108 03/10/22 16:42 Pulse Oximetry 97 03/10/22 16:42 [facility] - General Adult Medical Decision Making 31-year-old male with history of type 1 diabetes, smoking, family history of cardiac disease, CHF, CKD presenting to the emergency room with complaints of chest pressure for the last month now worsening associate with nausea/vomiting/diaphoresis. On exam, patient is hemodynamically stable. No focal findings on physical exam. Patient is in no acute distress right now. Initial troponin is 153. EKG is nonischemic. Patient is not actively complaining chest pain. Patient received aspirin 325 mg and Lovenox 1 mg/kg. Patient will be admitted to hospital for NSTEMI work-up. In addition, patient has new RADHA on CKD today with creatinine of 3.0. Disposition: admission Lab Data : 03/10/22 14:47 03/10/22 14:47 Radiology Impressions Chest X-Ray 03/10/22 11:44 IMPRESSION: Although there appear to be chronic findings in the patient's chest the current examination is suggestive of early congestive heart failure. Laboratory Results WBC 7.8 10^3/uL (4.0-10.0) 03/10/22 14:47 RBC 4.52 10^6/uL (4.1-5.3) 03/10/22 14:47 Hgb 12.9 g/dL (11.7-16.6) 03/10/22 14:47 Hct 41.0 % (42.0-52.0) L 03/10/22 14:47 MCV 90.7 fl (80-94) 03/10/22 14:47 MCH 28.5 pg (28.0-34.0) 03/10/22 14:47 MCHC 31.5 g/dL (30.0-36.0) 03/10/22 14:47 RDW 13.6 % (12.1-15.1) 03/10/22 14:47 Plt Count 322 10^3/cmm (130-400) 03/10/22 14:47 MPV 10.2 fL (7.4-10.4) 03/10/22 14:47 Neut % (Auto) 72.0 % 03/10/22 14:47 Lymph % (Auto) 22.9 % 03/10/22 14:47 [place] % (Auto) 3.2 % 03/10/22 14:47 Eos % (Auto) 1.3 % 03/10/22 14:47 Baso % (Auto) 0.5 % 03/10/22 14:47 Neut # (Auto) 5.64 10^3/uL (1.8-7.7) 03/10/22 14:47 Lymph # (Auto) 1.8 10^3/uL (0.8-4.8) 03/10/22 14:47 [place] # (Auto) 0.3 10^3/uL (0.2-0.9) 03/10/22 14:47 Eos # (Auto) 0.1 10^3/uL (0.0-0.8) 03/10/22 14:47 Baso # (Auto) 0.0 10^3/uL (0.0-0.1) 03/10/22 14:47 Nucleated RBC % (auto) 0 % 03/10/22 14:47 Nucleated RBCs # 0.0 /100WBC 03/10/22 14:47 Sodium 140 mmol/L (136-145) 03/10/22 14:47 Potassium 4.1 mmol/L (3.5-5.1) 03/10/22 14:47 Chloride 105 mmol/L (98-107) 03/10/22 14:47 Carbon Dioxide 25 mmol/L (22-29) 03/10/22 14:47 Anion Gap 14.1 (5-19) 03/10/22 14:47 BUN 27 mg/dL (6-20) H 03/10/22 14:47 Creatinine 3.0 mg/dL (0.7-1.2) H 03/10/22 14:47 GFR Calculation 24.5 mL/min (90-130) L 03/10/22 14:47 Glucose 79 mg/dL (65-115) 03/10/22 14:47 POC Glucose 69 mg/dL (70-110) L 03/10/22 15:45 Calculated Osmolality 294 mOsm/kg (285-295) 03/10/22 14:47 Calcium 9.1 mg/dL (8.5-10.5) 03/10/22 14:47 Troponin T Baseline 153 ng/L (0-15) H* 03/10/22 14:47 NT-Pro-B Natriuret Pep 23610 pg/mL (0-125) H 03/10/22 14:47 TSH 2.37 uIU/mL (0.27-4.20) 03/10/22 14:47 Urine Opiates Screen Negative ng/mL (Negative) 03/10/22 16:50 Ur Barbiturates Screen Negative ng/mL (Negative) 03/10/22 16:50 Ur Phencyclidine Scrn Negative ng/mL (Negative) 03/10/22 16:50 Ur Amphetamines Screen Negative ng/mL (Negative) 03/10/22 16:50 U Benzodiazepines Scrn Negative ng/mL (Negative) 03/10/22 16:50 Urine Cocaine Screen Negative ng/mL (Negative) 03/10/22 16:50 U Marijuana (THC) Screen Negative ng/mL (Negative) 03/10/22 16:50 Discharge Plan Discharge Patient Disposition: Admitted As Inpatient Clinical Impression: Chest pain, Non-ST elevation [place] (NSTEMI), Acute kidney injury superimposed on chronic kidney disease Condition: Stable Coding Level of Care Code 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
[2022-03-10 14:56] LABS: Basophils % 0.5 %; Eosinophils # 0.1 10^3/uL (0.0-0.8); Eosinophils % 1.3 %; Hemoglobin 12.9 g/dL (11.7-16.6); Lymphocytes # 1.8 10^3/uL (0.8-4.8); Lymphocytes % 22.9 %; Mean Corpuscular HGB Conc 31.5 g/dL (30.0-36.0); Mean Corpuscular Hemoglobin 28.5 pg (28.0-34.0); Mean Corpuscular Volume 90.7 fl (80-94); Mean Platelet Volume 10.2 fL (7.4-10.4); Monocytes # 0.3 10^3/uL (0.2-0.9); Monocytes % 3.2 %; Neutrophils # 5.64 10^3/uL (1.8-7.7); Nucleated Red Blood Cells % 0 %; Platelet Count 322 10^3/cmm (130-400); Red Blood Count 4.52 10^6/uL (4.1-5.3); Red Cell Distribution Width 13.6 % (12.1-15.1); White Blood Count 7.8 10^3/uL (4.0-10.0)
[2022-03-10] MEDS: aspirin 325 mg Tablet PO (15:23)
[2022-03-10 15:31] LABS: Troponin(5th) Baseline 153 ng/L (0-15)
[2022-03-10 15:32] LABS: Blood Urea Nitrogen 27 mg/dL (6-20); Calcium 9.1 mg/dL (8.5-10.5); Carbon Dioxide 25 mmol/L (22-29); Chloride 105 mmol/L (98-107); Glomerular Filtration Rate 24.5 mL/min (90-130); Glucose 79 mg/dL (65-115); Osmolality Calculated 294 mOsm/kg (285-295); Sodium 140 mmol/L (136-145)
[2022-03-10 15:39] LABS: Anion Gap 14.1 (5-19); Potassium 4.1 mmol/L (3.5-5.1)
--- NOTE | 2022-03-10 15:42 | PM.HP ---
Providers/Chief Complaint Primary Care Provider: Alex Escamilla Chief Complaint: Difficulty breathing History of Present Illness Maximiliano Jack is a 31 year old male who carries history of nonischemic cardiomyopathy, presented with chief complaint of worsening shortness of breath. Patient is stating that he has stopped taking his blood pressure pills for last 1 month, he is compliant with his Lasix. He is working at a new job and stating that his blood pressure was doing well does wake stop taking his blood pressure pills. 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 He is not sure about his sleep study results. He is endorsing coughing, PND, worsening shortness of breath which he is describing as neck tightness. He is denying chest pain, fever, diarrhea or use of recreational drugs. History of smoking 3 to 4 cigarettes a day. Diagnostics in the ER revealed signs of congestive heart failure, troponin extremely high, EKG without ischemic or infarctive changes Chest x-ray consistent with vascular congestion I requested drug screen and D-dimer He has been given first dose of Lovenox in the ER his creatinine is worsening I will start him on heparin drip Review of Systems Const: Denies: fever(s) Eyes: Denies: change in vision ENMT: Denies: throat pain Card: Reports: dyspnea on exertion and orthopnea Resp: Reports: dyspnea GI: Denies: abdominal pain : Denies: flank pain or urinary dribbling Musc: Denies: neck pain Skin/Breast: Denies: rash or new lesions Neuro: Denies: headache(s) Psych: Reports: anxiety Endo: Denies: polyuria Farhan/Lymph: Denies: easy bruising All/Imm: Denies: urticaria Medications/Allergies Home Medications Medication Instructions Recorded Confirmed Last Taken Type omeprazole 20 mg capsule,delayed 40 mg PO DAILY@0800 04/30/20 03/10/22 03/10/22 History release buspirone 10 mg tablet 10 mg PO BID@0800,2200 08/11/20 03/10/22 03/10/22 History insulin detemir U-100 100 unit/mL See Rx Instructions .ROUTE .COMPLEX 11/09/20 03/10/22 03/10/22 History (3 mL) subcutaneous pen (Levemir FlexTouch U-100 Insulin) atorvastatin 40 mg tablet 20 mg PO BEDTIME #45 tab 12/25/20 03/10/2203/09/22 Rx ondansetron 4 mg disintegrating 4 mg PO Q6H PRN #14 tab 11/17/21 03/10/22 Unknown Rx tablet furosemide 40 mg tablet 80 mg PO DAILY@0800 #60 tab 02/11/22 03/10/22 03/10/22 Rx insulin aspart U-100 100 unit/mL See Rx Instructions .ROUTE .COMPLEX 03/10/22 03/10/22 Unknown History (3 mL) subcutaneous pen (Novolog Flexpen U-100 Insulin aspart) potassium chloride 20 mEq 40 meq PO DAILY 03/10/22 03/10/22 03/10/22 History tablet,extended release(part/cryst) Allergies Allergy/AdvReac Type Severity Reaction Status Date / Time codeine Allergy Unknown Verified 03/10/22 15:14 sulfamethoxazole Allergy Unknown Verified 03/10/22 15:14 [From ] trimethoprim [From ] Allergy Unknown Verified 03/10/22 15:14 PFSH Acute PFSH: Medical History Anxiety COPD (chronic obstructive pulmonary disease) Heart failure Hypertension New onset of congestive heart failure Sleep apnea Type 1 diabetes mellitus Surgical History H/O hand surgery Family History Mother Diabetes Type 1 diabetes and CHF Other CAD (coronary artery disease) Social History Smoking and tobacco status: current every day smoker cigarettes Packs smoked per day: 1 Years cigarettes smoked: 15 [ Other cigarette details: Also chews tobacco] Alcohol intake: current Alcohol intake frequency: holidays/special occasions only Housing: House Vitals/I&O/Wt Last Vital Signs Temp 97.1 F L 03/10/22 11:40 Pulse 102 H 03/10/22 11:40 Resp 16 03/10/22 11:40 BP 148/106 03/10/22 11:40 Pulse Ox 100 03/10/22 11:40 Weight last 48 hrs Weight 90.718 kg Physical Exam Narrative: Pleasant cooperative male Currently laying in semi-Tao position No secondary edema of legs No active chest pain S1, S2 Looks euvolemic Abdomen soft No audible stridor or wheezing Nonfocal neuro exam No significant crackles noted on lung auscultation No skin cellulitis Data : 03/10/22 14:47 03/10/22 14:47 A&P Assessment and plan (1) Non-ST elevation [place] (NSTEMI): Status: Acute (2) Nocturnal hypoxia: Status: Acute (3) ZEUS (obstructive sleep apnea): Status: Acute (4) Smoking addiction: Status: Acute (5) CKD (chronic kidney disease): Status: Acute Qualifiers: Chronic kidney disease stage: unspecified stage Qualified Code(s): N18.9 - Chronic kidney disease, unspecified (6) Type 1 diabetes mellitus: Status: Acute Qualifiers: Diabetes mellitus complication status: with kidney complications (7) CHF exacerbation: Status: Acute Plan Acute reduced ejection fraction CHF exacerbation Nonischemic cardiomyopathy We will check BNP, TSH D-dimer Drug screen Start Bumex high-dose Hypertensive emergency Troponin leak No active chest pain It could be related to underlying CHF Trend troponin and serial EKG I will give him heparin for 48 hours to finish ACS protocol Start aspirin and Plavix Is already on statins For his blood pressure I will start him on isosorbide dinitrate and hydralazine I would avoid Toprol because of active CHF Repeat echo Patient is stating that no one has ever discussed AICD placement or LifeVest because his EF was 30 to 35% Active smoker: Trying to cut down on his smoking Full code Cardiac diet DVT prophylaxis currently on heparin Attestations Medical Necessity Statement*: Anticipating more than 2 midnights in the hospital for NSTEMI chf exacerbation Time Spent in Patient Care: 35 Coding Level of Care Code Acute Franchise Consultant for Chg Fwd Diagnoses Non-ST elevation [place] (NSTEMI) I21.4 Nocturnal hypoxia G47.34 ZEUS (obstructive sleep apnea) G47.33 Smoking addiction F17.200 CKD (chronic kidney disease) N18.9 Chronic kidney disease stage: unspecified stage Type 1 diabetes mellitus E10.9 Diabetes mellitus complication status: with kidney complications CHF exacerbation I50.9
[2022-03-10 15:48] LABS: Glucose Point of Care 69 mg/dL (70-110)
[2022-03-10] MEDS: enoxaparin 100 mg/mL Syringe 90 MG SUBCUT (15:49)
[2022-03-10] MEDS: ondansetron 2 mg/ML SDV 2 mL 4 MG IVP ×2 (15:49→22:48)
[2022-03-10] MEDS: bumetanide 0.25 mg/mL SDV 4 mL 1 MG IVP ×2 (16:45→22:08)
[2022-03-10 16:49] LABS: Thyroid Stimulating Hormone 2.37 uIU/mL (0.27-4.20)
[2022-03-10 18:15] LABS: Amphetamines Screen Urine Negative (Negative); Barbiturates Screen Urine Negative (Negative); Benzodiazepines Screen Urine Negative (Negative); Cocaine Screen Urine Negative (Negative); Opiate Screen Urine Negative (Negative); PCP Screen Urine Negative (Negative); THC Screen Urine Negative (Negative)
[2022-03-10 19:50] LABS: D Dimer 0.43 ug/mIFEU (0-0.59)
--- NOTE | 2022-03-10 20:57 | USCV_ITS ---
Guero Maximiliano Age: 31 Gender: M : 1990 Exam Date: 03/10/2022 22:05 Ordering Phys: Danie Calderon MD Technologist: SAMMIE Exam Location: [facility] [place] Indication: shortness of breath x 2 days. NonSTEMI. Patient states cardiac angio 2020, which he says was normal. BP: 135 / 102 HR: 95 Rhythm: Atrial fibrillation Technical Quality: Adequate MEASUREMENTS (Male / Female) Normal Values 2D ECHO LV Diastolic Diameter PLAX 6.8 cm 4.2 - 5.9 / 3.9 - 5.3 cm LV Systolic Diameter PLAX 6.1 cm IVS Diastolic Thickness 1.1 cm 0.6 - 1.0 / 0.6 - 0.9 cm IVS Systolic Thickness 1.0 cm LVPW Diastolic Thickness 1.2 cm 0.6 - 1.0 / 0.6 - 0.9 cm LVPW Systolic Thickness 1.5 cm LVOT Diameter 2.1 cm LV Ejection Fraction 2D Teich 19.9 % LV Ejection Fraction MOD 2C 16.8 % LV Ejection Fraction 2C AL 15.6 % LA Diameter 3.7 cm LA Width 5.8 cm LA Height 6.6 cm RA Width 5.0 cm RA Height 5.9 cm Aorta at Sinotubular Diameter 2.7 cm IVC Diameter 3.0 cm M-MODE Aortic Annulus Diameter 2.6 cm LA Ao Ratio MM 1.3 MV E Point Septal Separation 2.6 cm DOPPLER AV Peak Velocity 79.0 cm/s LVOT Peak Velocity 49.0 cm/s AV Area Cont Eq vti 2.6 cm squared AV Area Cont Eq pk 2.1 cm squared MV Peak Velocity 125.0 cm/s MV Area PHT 6.7 cm squared MV E' Velocity 56.0 cm/s Mitral E to MV E' Ratio 20.8 Mitral E to LV E' Lateral Ratio 18.6 Mitral E to LV E' Septal Ratio 24.1 TR Peak Velocity 229.5 cm/s TR Peak Gradient 21.1 mmHg TV Peak E Velocity 30.0 cm/s Right Atrial Pressure 5.0 mmHg Pulmonary Artery Systolic Pressu 26.1 mmHg PV Peak Velocity 61.0 cm/s RV Acceleration Time 0.1 s RV Ejection Time 0.3 s RV AcT/ET 0.2 FINDINGS Left Ventricle Severe diffuse hypokinesia left ventricle with ejection fraction of 24%. Mildly dilated left ventricular cavity Right Ventricle Normal RV size with a slightly diminished ejection fraction Right Atrium Mildly increased right atrial size. Left Atrium Moderately increased left atrial size. Mitral Valve Mild to moderate mitral valve regurgitation. Aortic Valve Trace aortic valve regurgitation. Tricuspid Valve Trace tricuspid valve regurgitation. Pulmonic Valve No gross abnormalities noted Pericardium Trivial pericardial effusion. Aorta Normal aortic annulus size. IVC Dilated IVC with decreased respiratory variation. CONCLUSIONS Severe diffuse hypokinesia left ventricle with ejection fraction of 24%. Mildly dilated left ventricular cavity. Moderately increased left atrial size. Mildly increased right atrial size. Normal RV size with a slightly diminished ejection fraction. Mild to moderate mitral valve regurgitation. Trace of aortic and tricuspid regurgitation Estimated PA pressure of 26 mmHg Trivial pericardial effusion. There are no intracardiac masses. Compared to the study from 11/09/2020, there is a significant drop in the LV ejection fraction Dr Camilo Mcnair MD [facility] (Electronically Signed) Final Date: 11 March 2022 09:37 S
--- NOTE | 2022-03-10 20:57 | ECG_ITS ---
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 Measurements Intervals [place] Rate: 98 P: 49 [place]: 130 QRS: 19 QRSD: 94 T: 72 QT: 377 QTc: 482 Interpretive Statements SINUS RHYTHM POSSIBLE LEFT ATRIAL ENLARGEMENT [-0.1mV P-WAVE IN V1/V2] NONSPECIFIC T-WAVE ABNORMALITY Compared to ECG 03/10/2022 11:39:17 Sinus tachycardia no longer present T-wave abnormality still present Electronically Signed On 03-11-2022 20:58:32 CDT by Camilo Mcnair M.D. [id number]
[2022-03-10 21:00] LABS: Glucose Point of Care 251 mg/dL (70-110)
[2022-03-10] MEDS: clopidogrel 300 mg Tablet PO (22:01)
[2022-03-10] MEDS: isosorbide dinitrate 20 mg Tablet 10 MG PO (22:01)
[2022-03-10] MEDS: clopidogrel 75 mg Tablet PO (22:02)
[2022-03-10] MEDS: atorvastatin 40 mg Tablet 20 MG PO (22:02)
[2022-03-10] MEDS: hyDRALAzine 10 mg Tablet PO (22:02)
[2022-03-10] MEDS: insulin lispro 100 unit/1 mL SUBCUT (22:03)
[2022-03-10] MEDS: aspirin 81 mg EC Tablet PO (22:03)
--- NOTE | 2022-03-10 22:18 | ECG_ITS ---
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 Measurements Intervals [place] Rate: 100 P: 52 [place]: 131 QRS: 37 QRSD: 94 T: 77 QT: 383 QTc: 495 Interpretive Statements SINUS TACHYCARDIA POSSIBLE LEFT ATRIAL ENLARGEMENT [-0.1mV P-WAVE IN V1/V2] NONSPECIFIC T-WAVE ABNORMALITY ABNORMAL RHYTHM ECG Compared to ECG 03/10/2022 21:15:56 Sinus rhythm no longer present T-wave abnormality still present Electronically Signed On 03-11-2022 21:00:14 CDT by Camilo Mcnair M.D. [id number]
[2022-03-10] MEDS: heparin drip 25,000 UNIT/500 ML PREMIX 47.17 UNIT IV (23:42)
[2022-03-11] VITALS (11 sets, daily range): BP systolic 125–141; BP diastolic 82–94; PULSE 94–106; RESP 16–18; TEMP 36.3–37.2; O2SAT 94–99
[2022-03-11 01:01] LABS: Basophils # 0.1 10^3/uL (0.0-0.1); Basophils % 0.6 %; Eosinophils # 0.2 10^3/uL (0.0-0.8); Eosinophils % 1.8 %; Hematocrit 36.1 % (42.0-52.0); Hemoglobin 11.6 g/dL (11.7-16.6); Lymphocytes # 2.7 10^3/uL (0.8-4.8); Lymphocytes % 32.1 %; Mean Corpuscular HGB Conc 32.1 g/dL (30.0-36.0); Mean Corpuscular Hemoglobin 28.6 pg (28.0-34.0); Mean Corpuscular Volume 88.9 fl (80-94); Mean Platelet Volume 10.6 fL (7.4-10.4); Monocytes # 0.3 10^3/uL (0.2-0.9); Monocytes % 3.4 %; Neutrophils # 5.28 10^3/uL (1.8-7.7); Neutrophils % 61.7 %; Nucleated Red Blood Cells % 0 %; Platelet Count 279 10^3/cmm (130-400); Red Blood Count 4.06 10^6/uL (4.1-5.3); Red Cell Distribution Width 13.6 % (12.1-15.1); White Blood Count 8.5 10^3/uL (4.0-10.0)
[2022-03-11 01:15] LABS: Partial Thromboplastin Time 45.6 SECONDS (23.9-36.7)
[2022-03-11 01:27] LABS: Troponin 5 6HR 167.4 ng/L (0-15); Troponin 5 6HR Delta 14.4 ng/L (0-12)
[2022-03-11 01:30] LABS: Anion Gap 10.8 (5-19); Blood Urea Nitrogen 31 mg/dL (6-20); C Reactive Protein 3.3 mg/L (0.0-4.9); Calcium 8.8 mg/dL (8.5-10.5); Carbon Dioxide 30 mmol/L (22-29); Chloride 104 mmol/L (98-107); Glomerular Filtration Rate 21.2 mL/min (90-130); Glucose 116 mg/dL (65-115); Magnesium 1.8 mg/dL (1.7-2.3); Osmolality Calculated 300 mOsm/kg (285-295); Phosphorus 3.8 mg/dL (2.5-4.5); Potassium 3.8 mmol/L (3.5-5.1); Sodium 141 mmol/L (136-145)
[2022-03-11 01:31] LABS: Creatinine Clr Calc Pharmacy 36.8887
[2022-03-11 03:17] LABS: Glucose Point of Care 95 mg/dL (70-110)
[2022-03-11 06:26] LABS: Partial Thromboplastin Time 56.4 SECONDS (23.9-36.7)
[2022-03-11 06:52] LABS: Glucose Point of Care 102 mg/dL (70-110)
[2022-03-11 06:52] LABS: Glucose Point of Care 55 mg/dL (70-110)
[2022-03-11] MEDS: potassium chloride ER 20 mEq Tablet 40 MEQ PO (08:46)
[2022-03-11] MEDS: hyDRALAzine 10 mg Tablet PO ×3 (08:46→22:28)
[2022-03-11] MEDS: pantoprazole DR 40 mg Tablet PO (08:46)
[2022-03-11] MEDS: bumetanide 0.25 mg/mL SDV 4 mL 1 MG IVP (09:22)
--- NOTE | 2022-03-11 10:56 | PM.PN ---
Subjective Subjective: This morning patient is stating that he is feeling better, adequate diuresis Dr. Clements is on vacation Echo shows further reduction of EF Will finish 48 hours on heparin Depending on echo will make further decision regarding his disposition and cardiac consult Creatinine has worsened to 3.4 will increase my diuretic dose today Vitals/I&O/Wt Last Vital Signs Temp 97.9 F 03/11/22 07:34 Pulse 97 03/11/22 08:00 Resp 16 03/11/22 08:00 BP 133/88 03/11/22 07:34 Pulse Ox 98 03/11/22 08:00 03/10/22 03/11/22 03/11/22 22:59 06:59 14:59 Intake Total 240 / 240 600 / 600 Output Total 1750 / 1750 Balance -1510 / -1510 600 / 600 Weight last 48 hrs Weight 90.718 kg Weight 90.718 kg Physical Exam Narrative: Patient clinically looks euvolemic He is not showing signs of JVD or lower extremity edema Bilateral breath sounds with crackles at base of the lungs He was able to lay supine Orthopnea PND Currently on room air Awake and alert S1, S2 Abdomen soft Data : 03/11/22 00:17 03/11/22 00:17 A&P Assessment and plan (1) Acute kidney injury superimposed on chronic kidney disease: Status: Acute (2) CHF exacerbation: Status: Acute (3) Non-ST elevation [place] (NSTEMI): Status: Acute (4) Nocturnal hypoxia: Status: Acute (5) ZEUS (obstructive sleep apnea): Status: Acute Plan Reduced ejection fraction heart failure exacerbation Likely due to positional sleep apnea Sleep study results confirm EF is 24% for the reduced from previous 30 to 35% We will touch base with cardiology, Dr. Chaney is not on-call Clinically patient is showing signs of improvement orthopnea PND Patient will need a LifeVest NSTEMI: We will need 48 hours on heparin which could be related to hypertension/hypertensive emergency No active chest pain no signs of ischemia on EKG Patient has history of nonischemic cardiomyopathy Acute on chronic kidney disease I will further increase the dose of IV diuretics Baseline creatinine seems to be around 1.8-2 Patient is an active smoker Full code Cardiac diet DVT prophylaxis currently on heparin drip Attestations Medical Necessity Statement*: Continue IV diuresis Time Spent in Patient Care: 30 Coding Level of Care Code Acute Social Services Specialist for Chg Fwd Diagnoses Acute kidney injury superimposed on chronic kidney disease N17.9; N18.9 CHF exacerbation I50.9 Non-ST elevation [place] (NSTEMI) I21.4 Nocturnal hypoxia G47.34 ZEUS (obstructive sleep apnea) G47.33
--- NOTE | 2022-03-11 11:24 | PC.NURSE ---
Called lab to remind them of aptt due at 12:30 spoke with Mel
[2022-03-11 11:55] LABS: Glucose Point of Care 115 mg/dL (70-110)
[2022-03-11] MEDS: bumetanide 0.25 mg/mL SDV 10 mL 2 MG IVP ×2 (12:01→22:50)
[2022-03-11 13:03] LABS: Partial Thromboplastin Time 47.4 SECONDS (23.9-36.7)
--- NOTE | 2022-03-11 15:11 | PC.NURSE ---
Physician verbal orders: Nicotine patch 14mg
[2022-03-11] MEDS: nicotine 14 mg Patch 1 PATCH TRANSDERMA (15:17)
[2022-03-11] MEDS: isosorbide dinitrate 20 mg Tablet 10 MG PO ×2 (15:20→22:28)
[2022-03-11 17:08] LABS: Glucose Point of Care 159 mg/dL (70-110)
--- NOTE | 2022-03-11 17:16 | PC.NURSE ---
Physician orders: GI cocktail ONCE for heartburn
[2022-03-11] MEDS: metOLazone 5 MG Tablet PO (17:43)
[2022-03-11] MEDS: insulin lispro 100 unit/1 mL SUBCUT (17:43)
[2022-03-11] MEDS: lidocaine 2% viscous 15 ML, aluminum-mag hydrox-simethicon 30 ML, sucralfate oral liq 1 GM PO (17:44)
[2022-03-11] MEDS: heparin drip 25,000 UNIT/500 ML PREMIX 50.8 UNIT IV (17:47)
[2022-03-11 20:49] LABS: Glucose Point of Care 176 mg/dL (70-110)
[2022-03-11 21:14] LABS: Partial Thromboplastin Time 70.4 SECONDS (23.9-36.7)
[2022-03-11] MEDS: atorvastatin 40 mg Tablet 20 MG PO (22:28)
[2022-03-12] VITALS (10 sets, daily range): BP systolic 124–147; BP diastolic 75–88; PULSE 93–101; RESP 15–18; TEMP 36.1–36.9; O2SAT 94–99
[2022-03-12 02:34] LABS: Basophils % 0.5 %; Eosinophils # 0.1 10^3/uL (0.0-0.8); Eosinophils % 1.6 %; Hematocrit 35.8 % (42.0-52.0); Hemoglobin 11.2 g/dL (11.7-16.6); Lymphocytes # 2.5 10^3/uL (0.8-4.8); Lymphocytes % 34.1 %; Mean Corpuscular HGB Conc 31.3 g/dL (30.0-36.0); Mean Corpuscular Hemoglobin 28.3 pg (28.0-34.0); Mean Corpuscular Volume 90.4 fl (80-94); Mean Platelet Volume 10.5 fL (7.4-10.4); Monocytes # 0.3 10^3/uL (0.2-0.9); Monocytes % 3.8 %; Neutrophils # 4.37 10^3/uL (1.8-7.7); Neutrophils % 59.6 %; Nucleated Red Blood Cells % 0 %; Platelet Count 258 10^3/cmm (130-400); Red Blood Count 3.96 10^6/uL (4.1-5.3); Red Cell Distribution Width 13.6 % (12.1-15.1); White Blood Count 7.3 10^3/uL (4.0-10.0)
[2022-03-12 02:47] LABS: Partial Thromboplastin Time 54.1 SECONDS (23.9-36.7)
[2022-03-12 02:58] LABS: Anion Gap 10.5 (5-19); Blood Urea Nitrogen 39 mg/dL (6-20); Calcium 8.4 mg/dL (8.5-10.5); Carbon Dioxide 30 mmol/L (22-29); Chloride 99 mmol/L (98-107); Glomerular Filtration Rate 19.3 mL/min (90-130); Glucose 278 mg/dL (65-115); Osmolality Calculated 299 mOsm/kg (285-295); Potassium 4.5 mmol/L (3.5-5.1); Sodium 135 mmol/L (136-145)
[2022-03-12] MEDS: heparin 5,000 unit/mL INJ 1 mL IV (03:04)
[2022-03-12 06:32] LABS: Glucose Point of Care 115 mg/dL (70-110)
[2022-03-12] MEDS: potassium chloride ER 20 mEq Tablet 40 MEQ PO (08:42)
[2022-03-12] MEDS: hyDRALAzine 10 mg Tablet PO ×3 (08:42→21:16)
[2022-03-12] MEDS: sennosides-docusate Tablet 1 TAB PO (08:42)
[2022-03-12] MEDS: pantoprazole DR 40 mg Tablet PO (08:42)
[2022-03-12] MEDS: metOLazone 5 MG Tablet PO (08:42)
[2022-03-12] MEDS: nicotine 14 mg Patch 1 PATCH TRANSDERMA (08:43)
[2022-03-12] MEDS: isosorbide dinitrate 20 mg Tablet 10 MG PO ×3 (08:43→21:16)
--- NOTE | 2022-03-12 09:00 | PC.NURSE ---
Declined morning dose of insulin. Patient reports blood sugar of 66 from his continuous glu monitor.
[2022-03-12 10:29] LABS: Partial Thromboplastin Time 32.4 SECONDS (23.9-36.7)
--- NOTE | 2022-03-12 10:35 | PM.PN ---
Subjective Subjective: That is worsening however patient is endorsing feeling better Is euvolemic Adequate urine output Discontinue diuretics today Vitals/I&O/Wt Last Vital Signs Temp 98.2 F 03/12/22 07:16 Pulse 99 03/12/22 09:06 Resp 16 03/12/22 09:06 BP 136/86 03/12/22 07:16 Pulse Ox 99 03/12/22 09:06 03/11/22 03/12/22 03/12/22 22:59 06:59 14:59 Intake Total 184.573 / 1274.573 300 / 1574.573 480 / 480 Output Total 650 / 650 1600 / 2250 500 / 500 Balance -465.427 / 624.573 -1300 / -675.427 -20 Weight last 48 hrs Weight 90.718 kg Weight 90.718 kg Physical Exam Narrative: Patient is euvolemic No orthopnea PND Pleasant cooperative Abdomen soft S1, S2 Surgery well on room air Has a nicotine patch Nonfocal neuro exam Data : 03/12/22 02:19 03/12/22 02:19 A&P Assessment and plan (1) Non-ischemic cardiomyopathy: Status: Acute (2) Acute kidney injury superimposed on chronic kidney disease: Status: Acute (3) CHF exacerbation: Status: Acute (4) Non-ST elevation [place] (NSTEMI): Status: Acute (5) Nocturnal hypoxia: Status: Acute (6) ZEUS (obstructive sleep apnea): Status: Acute (7) Smoking addiction: Status: Acute (8) CKD (chronic kidney disease): Status: Acute Qualifiers: Chronic kidney disease stage: unspecified stage Qualified Code(s): N18.9 - Chronic kidney disease, unspecified (9) Type 1 diabetes mellitus: Status: Acute Qualifiers: Diabetes mellitus complication status: with kidney complications Plan Acute on chronic kidney injury I would like to discontinue his diuretics for now and watch him off diuretics for Thursday Type 1 diabetes glucose not at target increase the dose of Lantus request hemoglobin A1c Orthopnea PND has improved for acute reduced action fraction heart failure exacerbation LifeVest has been ordered Hemodynamically stable Saturating normal on room air Has a nicotine patch Cardiac diet Full code DVT prophylaxis on board Attestations Medical Necessity Statement*: will discharge once creatinine started trending down Time Spent in Patient Care: 20 Coding Level of Care Code Acute Endoscopy Specialty Technician for Chg Fwd Diagnoses Non-ischemic cardiomyopathy I42.8 Acute kidney injury superimposed on chronic kidney disease N17.9; N18.9 CHF exacerbation I50.9 Non-ST elevation [place] (NSTEMI) I21.4 Nocturnal hypoxia G47.34 ZEUS (obstructive sleep apnea) G47.33 Smoking addiction F17.200 CKD (chronic kidney disease) N18.9 Chronic kidney disease stage: unspecified stage Type 1 diabetes mellitus E10.9 Diabetes mellitus complication status: with kidney complications
[2022-03-12 11:38] LABS: Glucose Point of Care 297 mg/dL (70-110)
[2022-03-12] MEDS: insulin lispro 100 unit/1 mL SUBCUT ×2 (12:22→18:37)
[2022-03-12 16:32] LABS: Glucose Point of Care 92 mg/dL (70-110)
[2022-03-12 18:30] LABS: Glucose Point of Care 280 mg/dL (70-110)
[2022-03-12 20:57] LABS: Glucose Point of Care 305 mg/dL (70-110)
[2022-03-12] MEDS: atorvastatin 40 mg Tablet 20 MG PO (21:15)
[2022-03-13] VITALS: BP 130/81; PULSE 103; RESP 18; TEMP 36.6; O2SAT 98
[2022-03-13 04:00] VITALS: BP 148/101; PULSE 106; RESP 18; TEMP 36.8; O2SAT 100
[2022-03-13 04:37] LABS: Glucose Point of Care 110 mg/dL (70-110)
[2022-03-13 04:37] LABS: Glucose Point of Care 120 mg/dL (70-110)
[2022-03-13 06:20] LABS: Glucose Point of Care 153 mg/dL (70-110)
[2022-03-13 06:33] LABS: Glucose Point of Care 70 mg/dL (70-110)
[2022-03-13 06:33] LABS: Glucose Point of Care 70 mg/dL (70-110)
[2022-03-13 06:51] LABS: Anion Gap 13.9 (5-19); Blood Urea Nitrogen 41 mg/dL (6-20); Calcium 8.4 mg/dL (8.5-10.5); Carbon Dioxide 29 mmol/L (22-29); Chloride 101 mmol/L (98-107); Glomerular Filtration Rate 19.3 mL/min (90-130); Glucose 158 mg/dL (65-115); Osmolality Calculated 301 mOsm/kg (285-295); Potassium 4.9 mmol/L (3.5-5.1); Sodium 139 mmol/L (136-145)
[2022-03-13] MEDS: insulin lispro 100 unit/1 mL SUBCUT (07:45)
[2022-03-13] MEDS: pantoprazole DR 40 mg Tablet PO (07:46)
[2022-03-13 08:00] VITALS: PULSE 100; PULSE 106; RESP 16; RESP 17; TEMP 36.6; O2SAT 97; O2SAT 98
[2022-03-13] MEDS: sennosides-docusate Tablet 1 TAB PO (08:31)
[2022-03-13] MEDS: hyDRALAzine 10 mg Tablet PO (08:31)
[2022-03-13] MEDS: isosorbide dinitrate 20 mg Tablet 10 MG PO (08:36)
--- NOTE | 2022-03-13 09:14 | P.DS_ITS ---
Discharge Providers Date of Admission: 03/10/22 20:57 Date of Discharge: March 13, 2022 Attending Provider at Admission: Danie Calderon MD Attending Provider at Discharge: Danie Calderon MD Primary Care Provider: Alex Escamilla Diagnoses at Discharge Discharge Diagnosis (1) Non-ischemic cardiomyopathy: Status: Acute (2) Acute kidney injury superimposed on chronic kidney disease: Status: Acute (3) CHF exacerbation: Status: Acute (4) Non-ST elevation [place] (NSTEMI): Status: Acute (5) Nocturnal hypoxia: Status: Acute (6) ZEUS (obstructive sleep apnea): Status: Acute (7) Smoking addiction: Status: Acute (8) CKD (chronic kidney disease): Status: Acute Qualifiers: Chronic kidney disease stage: unspecified stage Qualified Code(s): N18.9 - Chronic kidney disease, unspecified (9) Type 1 diabetes mellitus: Status: Acute Qualifiers: Diabetes mellitus complication status: with kidney complications Reason for Visit Reason for Visit: Difficulty breathing Discharge Data Studies Completed and Pending Completed Studies During Hospitalization Category Date Time Status XR chest 1V portable [id number] Stat Exams 03/10/22 11:44 Completed CV. echo complete* [id number] Routine Ultrasound 03/10/22 20:57 Completed Radiology Impressions Chest X-Ray 03/10/22 11:44 IMPRESSION: Although there appear to be chronic findings in the patient's chest the current examination is suggestive of early congestive heart failure. Laboratory Results WBC 7.3 10^3/uL (4.0-10.0) 03/12/22 02:19 RBC 3.96 10^6/uL (4.1-5.3) L 03/12/22 02:19 Hgb 11.2 g/dL (11.7-16.6) L 03/12/22 02:19 Hct 35.8 % (42.0-52.0) L 03/12/22 02:19 MCV 90.4 fl (80-94) 03/12/22 02:19 MCH 28.3 pg (28.0-34.0) 03/12/22 02:19 MCHC 31.3 g/dL (30.0-36.0) 03/12/22 02:19 RDW 13.6 % (12.1-15.1) 03/12/22 02:19 Plt Count 258 10^3/cmm (130-400) 03/12/22 02:19 MPV 10.5 fL (7.4-10.4) H 03/12/22 02:19 Neut % (Auto) 59.6 % 03/12/22 02:19 Lymph % (Auto) 34.1 % 03/12/22 02:19 [place] % (Auto) 3.8 % 03/12/22 02:19 Eos % (Auto) 1.6 % 03/12/22 02:19 Baso % (Auto) 0.5 % 03/12/22 02:19 Neut # (Auto) 4.37 10^3/uL (1.8-7.7) 03/12/22 02:19 Lymph # (Auto) 2.5 10^3/uL (0.8-4.8) 03/12/22 02:19 [place] # (Auto) 0.3 10^3/uL (0.2-0.9) 03/12/22 02:19 Eos # (Auto) 0.1 10^3/uL (0.0-0.8) 03/12/22 02:19 Baso # (Auto) 0.0 10^3/uL (0.0-0.1) 03/12/22 02:19 Nucleated RBC % (auto) 0 % 03/12/22 02:19 Nucleated RBCs # 0.0 /100WBC 03/12/22 02:19 APTT 32.4 SECONDS (23.9-36.7) 03/12/22 09:50 D-Dimer 0.43 ug/mIFEU (0-0.59) 03/10/22 16:30 Sodium 139 mmol/L (136-145) 03/13/22 06:10 Potassium 4.9 mmol/L (3.5-5.1) 03/13/22 06:10 Chloride 101 mmol/L (98-107) 03/13/22 06:10 Carbon Dioxide 29 mmol/L (22-29) 03/13/22 06:10 Anion Gap 13.9 (5-19) 03/13/22 06:10 BUN 41 mg/dL (6-20) H 03/13/22 06:10 Creatinine 3.7 mg/dL (0.7-1.2) H 03/13/22 06:10 GFR Calculation 19.3 mL/min (90-130) L 03/13/22 06:10 Glucose 158 mg/dL (65-115) H 03/13/22 06:10 POC Glucose 153 mg/dL (70-110) H 03/13/22 06:13 Calculated Osmolality 301 mOsm/kg (285-295) H 03/13/22 06:10 Calcium 8.4 mg/dL (8.5-10.5) L 03/13/22 06:10 Phosphorus 3.8 mg/dL (2.5-4.5) 03/11/22 00:17 Magnesium 1.8 mg/dL (1.7-2.3) 03/11/22 00:17 Troponin T Baseline 153 ng/L (0-15) H* 03/10/22 14:47 Troponin T Hi Sens 6Hr 167.4 ng/L (0-15) H 03/10/22 00:17 Troponin T Hi Sens 6Hr Delta 14.4 ng/L (0-12) H* 03/10/22 00:17 C-Reactive Protein 3.3 mg/L (0.0-4.9) 03/11/22 00:17 NT-Pro-B Natriuret Pep 68448 pg/mL (0-125) H 03/10/22 14:47 TSH 2.37 uIU/mL (0.27-4.20) 03/10/22 14:47 Urine Opiates Screen Negative ng/mL (Negative) 03/10/22 16:50 Ur Barbiturates Screen Negative ng/mL (Negative) 03/10/22 16:50 Ur Phencyclidine Scrn Negative ng/mL (Negative) 03/10/22 16:50 Ur Amphetamines Screen Negative ng/mL (Negative) 03/10/22 16:50 U Benzodiazepines Scrn Negative ng/mL (Negative) 03/10/22 16:50 Urine Cocaine Screen Negative ng/mL (Negative) 03/10/22 16:50 U Marijuana (THC) Screen Negative ng/mL (Negative) 03/10/22 16:50 Vitals Last Vital Signs Temp 98 F 03/13/22 08:00 Pulse 106 H 03/13/22 08:00 Resp 16 03/13/22 08:00 BP 148/101 03/13/22 04:00 Pulse Ox 97 03/13/22 08:00 Discharge Plan Discharge Patient Disposition: Home Condition: Stable Prescriptions: New isosorbide dinitrate 20 mg Tablet 10 mg PO TID Qty: 90 0RF hydralazine 10 mg Tablet 10 mg PO TID Qty: 60 3RF Continued atorvastatin 40 mg tablet 20 mg PO BEDTIME Qty: 45 3RF buspirone 10 mg tablet 10 mg PO BID@0800,2200 0RF Levemir FlexTouch U-100 Insuln 100 unit/mL (3 mL) insulin pen See Rx Instructions .ROUTE .COMPLEX 0RF Rx Instructions: 25 UNITS IN AM AND 25 UNITS IN PM omeprazole 20 mg Capsule,Delayed Release(Dr/Ec) 40 mg PO DAILY@0800 0RF ondansetron 4 mg tablet,disintegrating 4 mg PO Q6H PRN (Reason: nausea and vomiting) Qty: 14 0RF Novolog Flexpen U-100 Insulin 100 unit/mL (3 mL) insulin pen See Rx Instructions .ROUTE .COMPLEX 0RF Rx Instructions: subcutaneously PER SLIDING SCALE furosemide 40 mg tablet 80 mg PO DAILY@0800 Qty: 120 4RF potassium chloride 20 mEq tablet,ER particles/crystals 40 meq PO DAILY Qty: 30 0RF Discharge Orders: Discharge Order (Routine); Ordered 03/13/22 Ordered By: Danie Calderon Other Ambulatory Orders: Basic Metabolic Panel (Routine) Timeframe: 3 Days Facility: [facility] - Location: Lab - Main Lab Ordered By: Danie Calderon DME: CPAP (Order) Location: None Selected Ordered By: Danie Calderon Referrals: Alex Escamilla [Primary Care Provider] - 03/20/22 11:00 am Zoie Chaney MD [Physician] - 2 weeks Discharge Diet: Cardiac Discharge Activity: Increase activity as tolerated Patient Instructions: Isosorbide Dinitrate (By mouth), Hydralazine (By mouth), Angina (DC), Chest Pain Stoplight, Opioid Safety Discharge Attestations Time Spent in Discharge Care*: less than 30 min Quality Metrics Clinical Quality Measures [ No reported AMI, CVA or VTE this stay] Coding Level of Care Code Acute Chg FW DC note Diagnoses Non-ischemic cardiomyopathy I42.8 Acute kidney injury superimposed on chronic kidney disease N17.9; N18.9 CHF exacerbation I50.9 Non-ST elevation [place] (NSTEMI) I21.4 Nocturnal hypoxia G47.34 ZEUS (obstructive sleep apnea) G47.33 Smoking addiction F17.200 CKD (chronic kidney disease) N18.9 Chronic kidney disease stage: unspecified stage Type 1 diabetes mellitus E10.9 Diabetes mellitus complication status: with kidney complications
[2022-03-13 10:50] VITALS: PULSE 106; RESP 16; TEMP 36.6; O2SAT 97
--- NOTE | 2022-03-13 11:11 | PC.NURSE ---
Discharge Note Patient discharged to Home via private vehicle accompanied by Family. Discharge instructions reviewed with patient and/or event representative. Mobile pharmacy medications and/or prescriptions provided. Belongings/home medications returned.
--- NOTE | 2022-03-13 11:13 | P.DS_ITS ---
Discharge Providers Date of Admission: 03/10/22 20:57 Date of Discharge: March 13, 2022 Attending Provider at Admission: Danie Calderon MD Attending Provider at Discharge: Danie Calderon MD Primary Care Provider: Alex Escamilla Diagnoses at Discharge Discharge Diagnosis (1) Non-ischemic cardiomyopathy: Status: Acute (2) Acute kidney injury superimposed on chronic kidney disease: Status: Acute (3) CHF exacerbation: Status: Acute (4) Non-ST elevation CO (NSTEMI): Status: Acute (5) Nocturnal hypoxia: Status: Acute (6) ZEUS (obstructive sleep apnea): Status: Acute (7) Smoking addiction: Status: Acute (8) CKD (chronic kidney disease): Status: Acute Qualifiers: Chronic kidney disease stage: unspecified stage Qualified Code(s): N18.9 - Chronic kidney disease, unspecified (9) Type 1 diabetes mellitus: Status: Acute Qualifiers: Diabetes mellitus complication status: with kidney complications Reason for Visit Reason for Visit: Difficulty breathing Hospital Course Hospital Course Patient was admitted for management evaluation of reduced action fraction heart failure exacerbation, he has stopped taking his blood pressure pills for quite some time, patient stated that he was compliant with his Lasix despite that he started gaining weight, he was experiencing orthopnea and PND. He was diuresed aggressively with IV Lasix on day 1 his creatinine worsened from 3 to3.4 next day his IV diuretic dose was increased along addition of metolazone. His creatinine peaked at 3.7. On 11/10 he did not receive any diuretics. On 03/13 his creatinine is still 3.7. Patient is wanting to go home, I will have given him a prescription of BMP to check his creatinine after 3 days, I have asked him to continue his Lasix at home, follow-up with Dr. Clements. For his reduced ejection fraction heart failure LifeVest has been arranged, patient remained asymptomatic. For his hypertension I have added hydralazine 10 mg 3 times daily along with isosorbide dinitrate 10 mg 3 times daily. He cannot use DUY or ARB because of his chronic kidney disease. His echo on this visit showed EF 24% which has been reduced from 30 to 35%. Physical Exam Narrative: Patient is euvolemic No orthopnea PND Pleasant cooperative Abdomen soft S1, S2 On room air he saturating well, no signs of respiratory distress Has a nicotine patch Nonfocal neuro exam Discharge Data Studies Completed and Pending Completed Studies During Hospitalization Category Date Time Status XR chest 1V portable [id number] Stat Exams 03/10/22 11:44 Completed CV. echo complete* [id number] Routine Ultrasound 03/10/22 20:57 Completed Radiology Impressions Chest X-Ray 03/10/22 11:44 IMPRESSION: Although there appear to be chronic findings in the patient's chest the current examination is suggestive of early congestive heart failure. Laboratory Results WBC 7.3 10^3/uL (4.0-10.0) 03/12/22 02:19 RBC 3.96 10^6/uL (4.1-5.3) L 03/12/22 02:19 Hgb 11.2 g/dL (11.7-16.6) L 03/12/22 02:19 Hct 35.8 % (42.0-52.0) L 03/12/22 02:19 MCV 90.4 fl (80-94) 03/12/22 02:19 MCH 28.3 pg (28.0-34.0) 03/12/22 02:19 MCHC 31.3 g/dL (30.0-36.0) 03/12/22 02:19 RDW 13.6 % (12.1-15.1) 03/12/22 02:19 Plt Count 258 10^3/cmm (130-400) 03/12/22 02:19 MPV 10.5 fL (7.4-10.4) H 03/12/22 02:19 Neut % (Auto) 59.6 % 03/12/22 02:19 Lymph % (Auto) 34.1 % 03/12/22 02:19 [place] % (Auto) 3.8 % 03/12/22 02:19 Eos % (Auto) 1.6 % 03/12/22 02:19 Baso % (Auto) 0.5 % 03/12/22 02:19 Neut # (Auto) 4.37 10^3/uL (1.8-7.7) 03/12/22 02:19 Lymph # (Auto) 2.5 10^3/uL (0.8-4.8) 03/12/22 02:19 [place] # (Auto) 0.3 10^3/uL (0.2-0.9) 03/12/22 02:19 Eos # (Auto) 0.1 10^3/uL (0.0-0.8) 03/12/22 02:19 Baso # (Auto) 0.0 10^3/uL (0.0-0.1) 03/12/22 02:19 Nucleated RBC % (auto) 0 % 03/12/22 02:19 Nucleated RBCs # 0.0 /100WBC 03/12/22 02:19 APTT 32.4 SECONDS (23.9-36.7) 03/12/22 09:50 D-Dimer 0.43 ug/mIFEU (0-0.59) 03/10/22 16:30 Sodium 139 mmol/L (136-145) 03/13/22 06:10 Potassium 4.9 mmol/L (3.5-5.1) 03/13/22 06:10 Chloride 101 mmol/L (98-107) 03/13/22 06:10 Carbon Dioxide 29 mmol/L (22-29) 03/13/22 06:10 Anion Gap 13.9 (5-19) 03/13/22 06:10 BUN 41 mg/dL (6-20) H 03/13/22 06:10 Creatinine 3.7 mg/dL (0.7-1.2) H 03/13/22 06:10 GFR Calculation 19.3 mL/min (90-130) L 03/13/22 06:10 Glucose 158 mg/dL (65-115) H 03/13/22 06:10 POC Glucose 153 mg/dL (70-110) H 03/13/22 06:13 Calculated Osmolality 301 mOsm/kg (285-295) H 03/13/22 06:10 Calcium 8.4 mg/dL (8.5-10.5) L 03/13/22 06:10 Phosphorus 3.8 mg/dL (2.5-4.5) 03/11/22 00:17 Magnesium 1.8 mg/dL (1.7-2.3) 03/11/22 00:17 Troponin T Baseline 153 ng/L (0-15) H* 03/10/22 14:47 Troponin T Hi Sens 6Hr 167.4 ng/L (0-15) H 03/10/22 00:17 Troponin T Hi Sens 6Hr Delta 14.4 ng/L (0-12) H* 03/10/22 00:17 C-Reactive Protein 3.3 mg/L (0.0-4.9) 03/11/22 00:17 NT-Pro-B Natriuret Pep 22740 pg/mL (0-125) H 03/10/22 14:47 TSH 2.37 uIU/mL (0.27-4.20) 03/10/22 14:47 Urine Opiates Screen Negative ng/mL (Negative) 03/10/22 16:50 Ur Barbiturates Screen Negative ng/mL (Negative) 03/10/22 16:50 Ur Phencyclidine Scrn Negative ng/mL (Negative) 03/10/22 16:50 Ur Amphetamines Screen Negative ng/mL (Negative) 03/10/22 16:50 U Benzodiazepines Scrn Negative ng/mL (Negative) 03/10/22 16:50 Urine Cocaine Screen Negative ng/mL (Negative) 03/10/22 16:50 U Marijuana (THC) Screen Negative ng/mL (Negative) 03/10/22 16:50 Vitals Last Vital Signs Temp 98 F 03/13/22 10:50 Pulse 106 H 03/13/22 10:50 Resp 16 03/13/22 10:50 BP 148/101 03/13/22 04:00 Pulse Ox 97 03/13/22 10:50 Discharge Plan Discharge Patient Disposition: Home Condition: Stable Prescriptions: New isosorbide dinitrate 20 mg Tablet 10 mg PO TID Qty: 90 0RF hydralazine 10 mg Tablet 10 mg PO TID Qty: 60 3RF Continued atorvastatin 40 mg tablet 20 mg PO BEDTIME Qty: 45 3RF buspirone 10 mg tablet 10 mg PO BID@0800,2200 0RF Levemir FlexTouch U-100 Insuln 100 unit/mL (3 mL) insulin pen See Rx Instructions .ROUTE .COMPLEX 0RF Rx Instructions: 25 UNITS IN AM AND 25 UNITS IN PM omeprazole 20 mg Capsule,Delayed Release(Dr/Ec) 40 mg PO DAILY@0800 0RF ondansetron 4 mg tablet,disintegrating 4 mg PO Q6H PRN (Reason: nausea and vomiting) Qty: 14 0RF Novolog Flexpen U-100 Insulin 100 unit/mL (3 mL) insulin pen See Rx Instructions .ROUTE .COMPLEX 0RF Rx Instructions: subcutaneously PER SLIDING SCALE furosemide 40 mg tablet 80 mg PO DAILY@0800 Qty: 120 4RF potassium chloride 20 mEq tablet,ER particles/crystals 40 meq PO DAILY Qty: 30 0RF Discharge Orders: Discharge Order (Routine); Ordered 03/13/22 Ordered By: Danie Calderon Other Ambulatory Orders: Basic Metabolic Panel (Routine) Timeframe: 3 Days Facility: [facility] - Location: Lab - Main Lab Ordered By: Danie Calderon DME: CPAP (Order) Location: None Selected Ordered By: Danie Calderon Referrals: Alex Escamilla [Primary Care Provider] - 03/20/22 11:00 am Zoie Chaney MD [Physician] - 2 weeks Discharge Diet: Cardiac Discharge Activity: Increase activity as tolerated Patient Instructions: Isosorbide Dinitrate (By mouth), Hydralazine (By mouth), Angina (DC), Chest Pain Stoplight, Opioid Safety Discharge Attestations Time Spent in Discharge Care*: less than 30 min Quality Metrics Clinical Quality Measures [ No reported AMI, CVA or VTE this stay] Coding Level of Care Code Acute Chg FW DC note Diagnoses Non-ischemic cardiomyopathy I42.8 Acute kidney injury superimposed on chronic kidney disease N17.9; N18.9 CHF exacerbation I50.9 Non-ST elevation CO (NSTEMI) I21.4 Nocturnal hypoxia G47.34 ZEUS (obstructive sleep apnea) G47.33 Smoking addiction F17.200 CKD (chronic kidney disease) N18.9 Chronic kidney disease stage: unspecified stage Type 1 diabetes mellitus E10.9 Diabetes mellitus complication status: with kidney complications
[2022-03-13 11:27] LABS: Glucose Point of Care 312 mg/dL (70-110)
== END 2022-03-13 11:14 | disposition home or self-care (01) | DRG 280 ==
LOC: ER 15:37 → MEDSURG 20:09
PROVIDERS: Internal Medicine; Admitting Provider Internal Medicine; Emergency Provider Emergency Medicine; PCP Family Medicine; Visit Provider Internal Medicine
DX: I21.4 Non-ST elevation (NSTEMI) myocardial infarction (principal); I50.23 Acute on chronic systolic (congestive) heart failure; I13.0 Hypertensive heart and chronic kidney disease with heart failure and stage 1 through stage 4 chronic kidney disease, or unspecified chronic kidney disease; I42.8 Other cardiomyopathies; I16.1 Hypertensive emergency; N17.9 Acute kidney failure, unspecified; N18.9 Chronic kidney disease, unspecified; E10.22 Type 1 diabetes mellitus with diabetic chronic kidney disease; G47.33 Obstructive sleep apnea (adult) (pediatric); F17.210 Nicotine dependence, cigarettes, uncomplicated; F17.220 Nicotine dependence, chewing tobacco, uncomplicated; J44.9 Chronic obstructive pulmonary disease, unspecified; Z79.4 Long term (current) use of insulin
CPT/HCPCS: 36415; 36416; 71045; 80048; 80306; 82962; 83735; 83880; 84100; 84443; 84484; 85025; 85378; 85730; 86140; 93005; 93306; 94664; 94760; 96372; 96374; 96375; 99285; J1644; J1650; J1815; J2405; J3490

== ENCOUNTER 2022-03-24 19:26 | Emergency (ER) | payer OTHER, MEDICAID, SELFPAY ==
[2022-03-24 19:37] VITALS: BP 134/95; PULSE 104; RESP 18; TEMP 36.7; O2SAT 100; BMI 27.4
[2022-03-24 20:04] LABS: Basophils # 0.1 10^3/uL (0.0-0.1); Basophils % 0.5 %; Eosinophils % 0.2 %; Hematocrit 39.8 % (42.0-52.0); Hemoglobin 12.6 g/dL (11.7-16.6); Lymphocytes # 2.6 10^3/uL (0.8-4.8); Lymphocytes % 27.4 %; Mean Corpuscular HGB Conc 31.7 g/dL (30.0-36.0); Mean Corpuscular Hemoglobin 28.3 pg (28.0-34.0); Mean Corpuscular Volume 89.2 fl (80-94); Mean Platelet Volume 10.2 fL (7.4-10.4); Monocytes # 0.4 10^3/uL (0.2-0.9); Monocytes % 4.1 %; Neutrophils # 6.48 10^3/uL (1.8-7.7); Neutrophils % 67.6 %; Nucleated Red Blood Cells % 0 %; Platelet Count 317 10^3/cmm (130-400); Red Blood Count 4.46 10^6/uL (4.1-5.3); Red Cell Distribution Width 13.3 % (12.1-15.1); White Blood Count 9.6 10^3/uL (4.0-10.0)
[2022-03-24 20:33] LABS: Alanine Aminotransferase 209 U/L (0-41); Albumin Level 2.6 g/dL (3.5-5.2); Alkaline Phosphatase 94 IU/L (40-130); Anion Gap 15.2 (5-19); Aspartate Amino Transferase 149 U/L (0-40); Blood Urea Nitrogen 47 mg/dL (6-20); Calcium 8.5 mg/dL (8.5-10.5); Carbon Dioxide 23 mmol/L (22-29); Chloride 100 mmol/L (98-107); Globulin 3.4 g/dL (1.3-4.6); Glucose 110 mg/dL (65-115); Lipase 11 U/L (13-60); Osmolality Calculated 291 mOsm/kg (285-295); Potassium 4.2 mmol/L (3.5-5.1); Sodium 134 mmol/L (136-145); Total Bilirubin 0.5 mg/dL (0.15-1.2)
[2022-03-24 20:38] LABS: Creatine Phosphokinase 354 U/L (39-308)
--- NOTE | 2022-03-24 21:57 | PC.NURSE ---
patient c/o possible low blood sugar. patients blood sugar check found to be 52. patient given orange juice and crackers. will obtain repeat blood glucose @ 3755. Provider notified.
[2022-03-24 22:06] LABS: Glucose Point of Care 52 mg/dL (70-110)
[2022-03-24 22:17] LABS: Glucose Point of Care 53 mg/dL (70-110)
--- NOTE | 2022-03-24 22:21 | PC.NURSE ---
repeat blood glucose 53 upon check. provider notified. ally brought into triage and IV started.25 ml Dextrose 50 ordered.
[2022-03-24] MEDS: dextrose 50% syringe 50 mL 25 ML IVP (22:25)
--- NOTE | 2022-03-24 22:35 | ED_ITS ---
HPI - Nausea/Vomiting/Diarrhea General: Chief complaint: Nausea/Vomiting/Diarrhea Stated complaint: N/V Time Seen by Provider: 03/24/22 22:32 History of Present Illness: 32-year-old male patient comes in today for concerns of persistent nausea and vomiting. Patient has a history of diabetes mellitus type 1, cardiomyopathy, acute kidney injury, heart failure and hypertension. Patient also reports that it looks like he got a head a heart attack when he was in the hospital 2 weeks ago. Patient reports today he was having episodes of nausea and vomiting after he ate. Patient reports eating makes the symptoms worse. His mother reports that this has been going on for about 2 years now. His physician believes that he probably has gastroparesis. Patient appears unwell but nontoxic. Patient denies any pain. Associated nausea: Yes Associated symtoms: Reports nausea; Denies chest pain Review of Systems General: Reports: 10 or more systems reviewed and unremarkable except in HPI and below Const: Denies: fever(s) Card: Denies: chest pain Resp: Denies: dyspnea GI: Reports: nausea and vomiting : Denies: difficulty urinating PFSH ED PFSH: Medical History Anxiety COPD (chronic obstructive pulmonary disease) Heart failure Hypertension New onset of congestive heart failure Sleep apnea Type 1 diabetes mellitus Surgical History H/O hand surgery Family History Mother Diabetes Type 1 diabetes and CHF Other CAD (coronary artery disease) Social History Smoking and tobacco status: current every day smoker cigarettes Packs smoked per day: 1 Years cigarettes smoked: 15 [ Other cigarette details: Also chews tobacco] Alcohol intake: current Alcohol intake frequency: holidays/special occasions only Housing: House Physical Exam Const: COMMON NORMALS: alert HENMT: COMMON NORMALS: normocephalic HEAD & SCALP: normocephalic Neck/C-Spine: COMMON NORMALS: full ROM Resp: COMMON NORMALS: normal respiratory effort Cardio: COMMON NORMALS: regular rate RATE: regular rate GI: COMMON NORMALS: Soft to palpation PALPATION: Yes Soft to palpation and No Tenderness to palpation present (GI) Extremity: COMMON NORMALS: no pedal edema Neuro: SENSORIUM/ORIENTATION: Yes alert Skin: COMMON NORMALS: no rashes or lesions noted GENERAL SKIN EXAM: no rashes or lesions noted Course Vital Signs: Vital signs: Vital Signs Temperature 98.0 F 03/24/22 19:37 Pulse Rate 104 H 03/24/22 19:37 Respiratory Rate 18 03/24/22 19:37 Blood Pressure 134/95 03/24/22 19:37 Pulse Oximetry 100 03/24/22 19:37 Oxygen Delivery Me thod 03/24/22 19:37 MDM - Nausea/Vomiting/Diarrhea Medical Decision Making 32-year-old male patient comes in today with difficulty breathing and increased nausea and vomiting. Patient reports that overall he feels fine but every time he eats he gets sick to his stomach. And patient also reports decreased energy and difficulty walking long distances. Patient has recently been diagnosed with nonischemic cardiomyopathy and chronic kidney disease. Patient has type 1 diabetes. Review of the record notes that patient's creatinine is 3+. We also note his cardiac echo showed his efficiency at 24% in the left ventricle. On exam patient has clear lung sounds. Abdomen soft and nontender. Skin is warm and dry. Differential diagnosis includes dehydration, CHF, diabetic ketoacidosi s. Blood sugar was controlled in the mid 130s on initial lab draw. Anion gap was normal. Patient's creatinine was 3.9. Sodium was 134. CBC was unremarkable. Chest x-ray noted no significant fluid in the lopez. Patient was given a 500 mL bolus. Patient was recommended to eat smaller meals avoid overexertion and continue with plan for follow-up with GI specialist and freelance web designer. I think a lot of patient's GI symptoms are probably due to his gastroparesis secondary to diabetes and most likely his cardiomyopathy and decreased ejection fraction. Patient reported understanding of care plan and need for follow-up or return to the ER. Lab Data : 03/24/22 19:54 03/24/22 19:54 Laboratory Results WBC 9.6 10^3/uL (4.0-10.0) 03/24/22 19:54 RBC 4.46 10^6/uL (4.1-5.3) 03/24/22 19:54 Hgb 12.6 g/dL (11.7-16.6) 03/24/22 19:54 Hct 39.8 % (42.0-52.0) L 03/24/22 19:54 MCV 89.2 fl (80-94) 03/24/22 19:54 MCH 28.3 pg (28.0-34.0) 03/24/22 19:54 MCHC 31.7 g/dL (30.0-36.0) 03/24/22 19:54 RDW 13.3 % (12.1-15.1) 03/24/22 19:54 Plt Count 317 10^3/cmm (130-400) 03/24/22 19:54 MPV 10.2 fL (7.4-10.4) 03/24/22 19:54 Neut % (Auto) 67.6 % 03/24/22 19:54 Lymph % (Auto) 27.4 % 03/24/22 19:54 [place] % (Auto) 4.1 % 03/24/22 19:54 Eos % (Auto) 0.2 % 03/24/22 19:54 Baso % (Auto) 0.5 % 03/24/22 19:54 Neut # (Auto) 6.48 10^3/uL (1.8-7.7) 03/24/22 19:54 Lymph # (Auto) 2.6 10^3/uL (0.8-4.8) 03/24/22 19:54 [place] # (Auto) 0.4 10^3/uL (0.2-0.9) 03/24/22 19:54 Eos # (Auto) 0.0 10^3/uL (0.0-0.8) 03/24/22 19:54 Baso # (Auto) 0.1 10^3/uL (0.0-0.1) 03/24/22 19:54 Nucleated RBC % (auto) 0 % 03/24/22:54 Nucleated RBCs # 0.0 /100WBC 03/24/22 19:54 Sodium 134 mmol/L (136-145) L 03/24/22 19:54 Potassium 4.2 mmol/L (3.5-5.1) 03/24/22 19:54 Chloride 100 mmol/L (98-107) 03/24/22 19:54 Carbon Dioxide 23 mmol/L (22-29) 03/24/22 19:54 Anion Gap 15.2 (5-19) 03/24/22 19:54 BUN 47 mg/dL (6-20) H 03/24/22 19:54 Creatinine 3.9 mg/dL (0.7-1.2) H 03/24/22 19:54 GFR Calculation 18.0 mL/min (90-130) L 03/24/22 19:54 Glucose 110 mg/dL (65-115) 03/24/22 19:54 POC Glucose 105 mg/dL (70-110) 03/24/22 23:03 Calculated Osmolality 291 mOsm/kg (285-295) 03/24/22 19:54 Calcium 8.5 mg/dL (8.5-10.5) 03/24/22 19:54 Total Bilirubin 0.5 mg/dL (0.15-1.2) 03/24/22 19:54 AST 149 U/L (0-40) H 03/24/22 19:54 ALT 209 U/L (0-41) H 03/24/22 19:54 Alkaline Phosphatase 94 IU/L (40-130) 03/24/22 19:54 Creatine Kinase 354 U/L (39-308) H* 03/24/22 19:54 Total Protein 6.0 g/dL (6.6-8.7) L 03/24/22 19:54 Albumin 2.6 g/dL (3.5-5.2) L 03/24/22 19:54 Globulin 3.4 g/dL (1.3-4.6) 03/24/22 19:54 Lipase 11 U/L (13-60) L 03/24/22 19:54 Discharge Plan Discharge Patient Disposition: Home Clinical Impression: Nausea & vomiting, Non-ischemic cardiomyopathy Diabetes mellitus Qualifiers: Diabetes mellitus type: type 1 Diabetes mellitus complication status: with kidney complications Diabetes mellitus complication detail: with chronic kidney disease Chronic kidney disease stage: unspecified stage Qualified Code(s): E10.22 - Type 1 diabetes mellitus with diabetic chronic kidney disease Condition: Stable Prescriptions: Continued ondansetron 4 mg tablet,disintegrating 4 mg PO Q6H PRN (Reason: nausea and vomiting) Qty: 14 0RF No Action atorvastatin 40 mg tablet 20 mg PO BEDTIME Qty: 45 3RF buspirone 10 mg tablet 10 mg PO BID@0800,2200 Levemir FlexTouch U-100 Insuln 100 unit/mL (3 mL) insulin pen See Rx Instructions .ROUTE .COMPLEX Rx Instructions: 25 UNITS IN AM AND 25 UNITS IN PM omeprazole 20 mg Capsule,Delayed Release(Dr/Ec) 40 mg PO DAILY@0800 Novolog Flexpen U-100 Insulin 100 unit/mL (3 mL) insulin pen See Rx Instructions .ROUTE .COMPLEX Rx Instructions: subcutaneously PER SLIDING SCALE isosorbide dinitrate 20 mg Tablet 10 mg PO TID Qty: 90 0RF hydralazine 10 mg Tablet 10 mg PO TID Qty: 60 3RF furosemide 40 mg tablet 80 mg PO DAILY@0800 Qty: 120 4RF potassium chloride 20 mEq tablet,ER particles/crystals 40 meq PO DAILY Qty: 30 0RF Discharge Orders: Discharge ED (Routine); Ordered 03/24/22 Ordered By: Masood Neumann Referrals: Alex Escamilla [Primary Care Provider] - Discharge Diet: Usual diet Discharge Activity: Increase activity as tolerated Patient Instructions: Acute Nausea and Vomiting (ED) Activity Restrictions/Additional Instructions: Home and rest. Eat small frequent meals. Your heart is only working at one third efficiency. This will cause fatigue, increased shortness of breath, and increased nausea with eating. Eating frequent small meals will prevent overtaxing the heart. Continue with routine medications as directed. Monitor blood sugar frequently. Return to ER for new concerns. Return to ER for worsening symptoms such as fever greater than 100.4, inability to hold down fluids, or blood in vomit or stool. Coding Level of Care Code ED Housing Management Officer for [employer] 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
[2022-03-24] MEDS: metoclopramide 5 mg/mL SDV 2 mL 10 MG IVP (22:37)
[2022-03-24] MEDS: sodium chloride 0.9% 1,000 ML 999 ML IV (22:37)
--- NOTE | 2022-03-24 22:49 | XRR_ITS ---
PROCEDURE INFORMATION: Exam: XR Chest Exam date and time: 03/24/2022 10:52 PM Age: 32 years old Clinical indication: Cough TECHNIQUE: Imaging protocol: Radiologic exam of the chest. Views: 1 view. COMPARISON: CR XR chest 1V portable [id number] 03/10/2022 11:53 AM FINDINGS: Lungs: No consolidation. Pleural spaces: Unremarkable. No pleural effusion. No pneumothorax. Heart/Mediastinum: Cardiomegaly. Bones/joints: No acute fracture. XR/XR chest 1V portable [id number] IMPRESSION: Cardiomegaly. No consolidation.
[2022-03-24 23:08] LABS: Glucose Point of Care 105 mg/dL (70-110)
[2022-03-24 23:32] VITALS: BP 153/103; PULSE 109; RESP 18; O2SAT 96
== END 2022-03-24 23:32 | disposition home or self-care (01) ==
PROVIDERS: Emergency Medicine; Emergency Provider Nurse Practitioner Family; PCP Family Medicine
DX: R11.2 Nausea with vomiting, unspecified (principal); I42.8 Other cardiomyopathies; E10.22 Type 1 diabetes mellitus with diabetic chronic kidney disease; I13.0 Hypertensive heart and chronic kidney disease with heart failure and stage 1 through stage 4 chronic kidney disease, or unspecified chronic kidney disease; N18.9 Chronic kidney disease, unspecified; I50.9 Heart failure, unspecified; Z79.4 Long term (current) use of insulin; J44.9 Chronic obstructive pulmonary disease, unspecified; F17.210 Nicotine dependence, cigarettes, uncomplicated
CPT/HCPCS: 36416; 71045; 80053; 82550; 82962; 83690; 85025; 96374; 96375; 99284; J2765; J7030

== ENCOUNTER 2022-03-26 02:07 | Emergency (ER) | payer OTHER, SELFPAY ==
[2022-03-26 02:11] VITALS: BP 152/117; PULSE 107; RESP 18; TEMP 36.6; O2SAT 100; BMI 28.1
[2022-03-26 02:31] LABS: Glucose Point of Care 222 mg/dL (70-110)
[2022-03-26 02:34] LABS: Basophils % 0.4 %; Eosinophils # 0.1 10^3/uL (0.0-0.8); Eosinophils % 0.8 %; Hematocrit 39.6 % (42.0-52.0); Hemoglobin 12.3 g/dL (11.7-16.6); Lymphocytes % 30.2 %; Mean Corpuscular HGB Conc 31.1 g/dL (30.0-36.0); Mean Corpuscular Hemoglobin 27.8 pg (28.0-34.0); Mean Corpuscular Volume 89.6 fl (80-94); Mean Platelet Volume 10.4 fL (7.4-10.4); Monocytes # 0.4 10^3/uL (0.2-0.9); Neutrophils # 6.37 10^3/uL (1.8-7.7); Neutrophils % 64.3 %; Nucleated Red Blood Cells % 0.2 %; Platelet Count 275 10^3/cmm (130-400); Red Blood Count 4.42 10^6/uL (4.1-5.3); Red Cell Distribution Width 13.4 % (12.1-15.1); White Blood Count 9.9 10^3/uL (4.0-10.0)
--- NOTE | 2022-03-26 02:47 | XRR_ITS ---
PROCEDURE INFORMATION: Exam: XR Chest Exam date and time: 03/26/2022 3:39 AM Age: 32 years old Clinical indication: Shortness of breath; Patient HX: C/O SOB. TECHNIQUE: Imaging protocol: Radiologic exam of the chest. Views: 1 view. COMPARISON: CR (CHEST, ) 03/24/2022 10:52 PM FINDINGS: Lungs: Suspect mild pulmonary vascular congestion. Mild prominence of the perihilar lung markings bilaterally, with some peribronchial thickening. While nonspecific, mild CHF/interstitial pulmonary edema should be considered. This appearance could also be secondary to some type of bronchitis/pneumonitis. Please correlate clinically. Visible lungs otherwise appear essentially clear. Pleural spaces: No visible pneumothorax. No definite pleural fluid. Heart/Mediastinum: Mild to moderate cardiomegaly, probably slightly decreased in the interval. Bones/joints: No significant acute finding. XR/XR chest 1V portable [id number] IMPRESSION: 1. Suspect mild pulmonary vascular congestion/CHF, please see above discussion. 2. Other findings discussed above.
[2022-03-26 02:59] LABS: Alanine Aminotransferase 234 U/L (0-41); Albumin Level 2.5 g/dL (3.5-5.2); Alkaline Phosphatase 117 IU/L (40-130); Anion Gap 15.3 (5-19); Aspartate Amino Transferase 86 U/L (0-40); Blood Urea Nitrogen 44 mg/dL (6-20); Calcium 8.2 mg/dL (8.5-10.5); Carbon Dioxide 25 mmol/L (22-29); Chloride 100 mmol/L (98-107); Globulin 3.6 g/dL (1.3-4.6); Glomerular Filtration Rate 15.7 mL/min (90-130); Glucose 159 mg/dL (65-115); Lipase 33 U/L (13-60); Osmolality Calculated 297 mOsm/kg (285-295); Potassium 4.3 mmol/L (3.5-5.1); Sodium 136 mmol/L (136-145); Total Bilirubin 0.4 mg/dL (0.15-1.2); Total Protein 6.1 g/dL (6.6-8.7)
[2022-03-26] MEDS: FUROsemide 10 mg/mL SDV 4mL 60 MG IVP (03:55)
--- NOTE | 2022-03-26 04:05 | W.ED.SOB ---
HPI - SOB/Dyspnea General: Chief Complaint: Shortness of Breath/Dyspnea Stated Complaint: SOB Time Seen by Provider: 03/26/22 03:30 Source: patient Mode of arrival: ambulatory Limitations: no limitations History of Present Illness: HPI Narrative: 32-year-old male has a history of chronic kidney disease along with nonischemic cardiomyopathy. Patient states he takes Lasix daily and he is unable to take it for 2 days recently due to vomiting. He states that he has felt like he is had some increase in fluid around his abdomen and his thighs causing some slight dyspnea he is in no distress here his pulse ox are normal denies any fever he states he supposed be following with a polymer tester but has not yet. He still makes urine. Denies any worsening improving factors. Associated symptoms: Deny abdominal pain, chest pain, fever(s), nausea or vomiting Review of Systems Const: Denies: fever(s), chills, body aches or change in appetite Eyes: Denies: blurry vision or eye discomfort ENMT: Denies: throat pain or dental pain Card: Denies: chest pain Resp: Reports: dyspnea GI: Denies: abdominal pain, nausea, vomiting or diarrhea : Denies: dysuria Musc: Denies: neck pain or back pain Skin/Breast: Denies: rash Neuro: Denies: headache(s) Psych: Denies: depression Farhan/Lymph: Denies: easy bruising All/Imm: Denies: urticaria PFSH ED PFSH: Medical History Anxiety CKD (chronic kidney disease) COPD (chronic obstructive pulmonary disease) Heart failure Hypertension New onset of congestive heart failure Nocturnal hypoxia ZEUS (obstructive sleep apnea) Sleep apnea Smoking addiction Type 1 diabetes mellitus Surgical History H/O hand surgery Family History Mother Diabetes Type 1 diabetes and CHF Other CAD (coronary artery disease) Social History Smoking and tobacco status: current every day smoker cigarettes Packs smoked per day: 1 Years cigarettes smoked: 15 [ Other cigarette details: Also chews tobacco] Alcohol intake: current Alcohol intake frequency: holidays/special occasions only Housing: House Physical Exam Const: COMMON NORMALS: no acute distress, patient oriented x3 and healthy appearing HENMT: COMMON NORMALS: normocephalic and atraumatic HEAD & SCALP: normocephalic and atraumatic Eye: COMMON NORMALS: Equal, round and reactive pupils present and EOMs intact bilaterally PUPIL: Yes Equal, round and reactive pupils present Neck/C-Spine: COMMON NORMALS: full ROM and supple Chest: COMMONS NORMALS: normal inspection of the chest and normal palpation of entire chest wall Resp: COMMON NORMALS: normal respiratory effort, No retractions, No use of accessory muscles and clear to auscultation bilaterally AUSCULTATION: clear to auscultation bilaterally Cardio: COMMON NORMALS: regular rate, regular rhythm and No murmurs present (Cardio) RATE: regular rate RHYTHM: regular rhythm GI: COMMON NORMALS: Normal to inspection, nondistended, normoactive bowel sounds present, Soft to palpation, non-tender and no masses PALPATION: Yes Soft to palpation Extremity: COMMON NORMALS: normal to inspection and full ROM Neuro: COMMON NORMALS: patient oriented x3, moves all extremities and no focal motor deficits Psych: COMMON NORMALS: mental status grossly normal, Normal thought process present and cooperative THOUGHT PROCESS: Normal thought process present Skin: COMMON NORMALS: no rashes or lesions noted and no wounds GENERAL SKIN EXAM: no rashes or lesions noted Course Vital Signs: Vital signs: Vital Signs Temperature 97.9 F 03/26/22 02:11 Pulse Rate 106 H 03/26/22 04:59 Respiratory Rate 16 03/26/22 04:59 Blood Pressure 163/115 03/26/22 04:59 Pulse Oximetry 99 03/26/22 04:59 Oxygen Delivery Me thod 03/26/22 02:11 MDM - SOB/Dyspnea Medical Decision Making Patient presents for some dyspnea as BNP is elevated he needs to follow-up with nephrology possibly start dialysis he is not in acute kidney failure his potassium here is normal he still making urine x-ray shows no signs of pulmonary edema he is not in any distress he has made urine after Lasix he is to follow-up with cardiology as well if he worsens he is to return he understands agrees to plan. Lab Data : 03/26/22 02:28 03/26/22 02:28 Labs/Radiology: Laboratory Results WBC 9.9 10^3/uL (4.0-10.0) 03/26/22 02:28 RBC 4.42 10^6/uL (4.1-5.3) 03/26/22 02:28 Hgb 12.3 g/dL (11.7-16.6) 03/26/22 02:28 Hct 39.6 % (42.0-52.0) L 03/26/22 02: MCV 89.6 fl (80-94) 03/26/22 02:28 MCH 27.8 pg (28.0-34.0) L 03/26/22 02: MCHC 31.1 g/dL (30.0-36.0) 03/26/22 02: RDW 13.4 % (12.1-15.1) 03/26/22 02:28 Plt Count 275 10^3/cmm (130-400) 03/26/22 02: MPV 10.4 fL (7.4-10.4) 03/26/22 02:28 Neut % (Auto) 64.3 % 03/26/22 02: Lymph % (Auto) 30.2 % 03/26/22 02:28 Kenton % (Auto) 4.0 % 03/26/22 02: Eos % (Auto) 0.8 % 03/26/22 02: Baso % (Auto) 0.4 % 03/26/22 02: Neut # (Auto) 6.37 10^3/uL (1.8-7.7) 03/26/22 02: Lymph # (Auto) 3.0 10^3/uL (0.8-4.8) 03/26/22 02:28 Kenton # (Auto) 0.4 10^3/uL (0.2-0.9) 03/26/22 02: Eos # (Auto) 0.1 10^3/uL (0.0-0.8) 03/26/22 02: Baso # (Auto) 0.0 10^3/uL (0.0-0.1) 03/26/22 02:28 Nucleated RBC % (auto) 0.2 % 03/26/22 02: Nucleated RBCs # 0.0 /100WBC 03/26/22 02:28 Sodium 136 mmol/L (136-145) 03/26/22 02:28 Potassium 4.3 mmol/L (3.5-5.1) 03/26/22 02:28 Chloride 100 mmol/L (98-107) 03/26/22 02:28 Carbon Dioxide 25 mmol/L (22-29) 03/26/22 02:28 Anion Gap 15.3 (5-19) 03/26/22 02:28 BUN 44 mg/dL (6-20) H 03/26/22 02:28 Creatinine 4.4 mg/dL (0.7-1.2) H 03/26/22 02:28 GFR Calculation 15.7 mL/min (90-130) L 03/26/22 02:28 Glucose 159 mg/dL (65-115) H 03/26/22 02:28 POC Glucose 105 mg/dL (70-110) 03/26/22 04:04 Calculated Osmolality 297 mOsm/kg (285-295) H 03/26/22 02:28 Calcium 8.2 mg/dL (8.5-10.5) L 03/26/22 02:28 Total Bilirubin 0.4 mg/dL (0.15-1.2) 03/26/22 02:28 AST 86 U/L (0-40) H 03/26/22 02:28 ALT 234 U/L (0-41) H 03/26/22 02:28 Alkaline Phosphatase 117 IU/L (40-130) 03/26/22 02:28 NT-Pro-B Natriuret Pep 44924 pg/mL (0-125) H 03/26/22 02:28 Total Protein 6.1 g/dL (6.6-8.7) L 03/26/22 02:28 Albumin 2.5 g/dL (3.5-5.2) L 03/26/22 02:28 Globulin 3.6 g/dL (1.3-4.6) 03/26/22 02:28 Lipase 33 U/L (13-60) 03/26/22 02:28 Discharge Plan Discharge Patient Disposition: Home Clinical Impression: Non-ischemic cardiomyopathy, Acute kidney injury superimposed on chronic kidney disease, Edema Condition: Stable Prescriptions: No Action atorvastatin 40 mg tablet 20 mg PO BEDTIME Qty: 45 3RF buspirone 10 mg tablet 10 mg PO BID@0800,2200 Levemir FlexTouch U-100 Insuln 100 unit/mL (3 mL) insulin pen See Rx Instructions .ROUTE .COMPLEX Rx Instructions: 25 UNITS IN AM AND 25 UNITS IN PM omeprazole 20 mg Capsule,Delayed Release(Dr/Ec) 40 mg PO DAILY@0800 ondansetron 4 mg tablet,disintegrating 4 mg PO Q6H PRN (Reason: nausea and vomiting) Qty: 14 0RF Novolog Flexpen U-100 Insulin 100 unit/mL (3 mL) insulin pen See Rx Instructions .ROUTE .COMPLEX Rx Instructions: subcutaneously PER SLIDING SCALE isosorbide dinitrate 20 mg Tablet 10 mg PO TID Qty: 90 0RF hydralazine 10 mg Tablet 10 mg PO TID Qty: 60 3RF furosemide 40 mg tablet 80 mg PO DAILY@0800 Qty: 120 4RF potassium chloride 20 mEq tablet,ER particles/crystals 40 meq PO DAILY Qty: 30 0RF Discharge Orders: Discharge ED (Routine); Ordered 03/26/22 Ordered By: Rob Watson Referrals: Alex Escamilla [Primary Care Provider] - Discharge Diet: Advance as tolerated Discharge Activity: Resume usual activity Patient Instructions: Edema (ED) Coding Level of Care Code ED Supervisor [employer] for Chg Fwd 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
[2022-03-26 04:07] LABS: Glucose Point of Care 105 mg/dL (70-110)
[2022-03-26 04:17] LABS: NT Pro B Type Natriuretic Pept 31923 pg/mL (0-125)
[2022-03-26 04:59] VITALS: BP 163/115; PULSE 106; RESP 16; O2SAT 99
--- NOTE | 2022-03-26 20:58 | DCPLANNER ---
Addendum entered by Ellie Mccord 04/04/22 10:43: Patient has a follow u appointment scheduled for Friday, May 13, 2022 at 3:[address] Chaney at [facility]. Clinic will call patient with appointment information. Addendum entered by Ellie Mccord 04/04/22 10:39: late entry - case management coordinator also had message to schedule a follow up appointment for patient with nephrology - case management coordinator tried to call patient to see where patient wanted to be referred to. customer care manager unable to speak with patient at this time. Original Note: customer care manager had message to schedule a follow up appointment for patient with cardiology. customer care manager sent patients information to the front office staff at [facility]. Patients information will be printed and reviewed. Clinic will call patient with appointment information.
== END 2022-03-26 05:01 | disposition home or self-care (01) ==
PROVIDERS: Emergency Provider Emergency Medicine; PCP Family Medicine
DX: I42.8 Other cardiomyopathies (principal); R60.9 Edema, unspecified; N17.9 Acute kidney failure, unspecified; I13.0 Hypertensive heart and chronic kidney disease with heart failure and stage 1 through stage 4 chronic kidney disease, or unspecified chronic kidney disease; I50.9 Heart failure, unspecified; E10.22 Type 1 diabetes mellitus with diabetic chronic kidney disease; N18.9 Chronic kidney disease, unspecified; J44.9 Chronic obstructive pulmonary disease, unspecified; F17.210 Nicotine dependence, cigarettes, uncomplicated; Z79.4 Long term (current) use of insulin
CPT/HCPCS: 36416; 71045; 80053; 82962; 83690; 83880; 85025; 96374; 99284; J1940

== ENCOUNTER 2022-03-26 06:32 | Emergency (ER) | payer OTHER, MEDICAID, SELFPAY ==
[2022-03-26] VITALS (7 sets, daily range): BP systolic 146–165; BP diastolic 111–117; PULSE 95–105; RESP 16–18; TEMP 37; O2SAT 94–100; BMI 28.5
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
[2022-03-26] MEDS: fentaNYL 50 mcg/mL INJ 2mL 75 MCG IVP (07:39)
--- NOTE | 2022-03-26 07:46 | PC.NURSE ---
0740: DR. RAMSEY IN ROOM. PHYSICIAN ATTEMPT TO RELOCATE SHOULDER.
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
--- NOTE | 2022-03-26 08:00 | PC.NURSE ---
DURING ATTEMPT TO ASSESS PT BACK REQUESTED. PT MOVED LEFT ARM AND IMMEDIATELY SUSPECTED SHOULDER DISLOCATION. XRAY ORDER PLACED. XRAY CONFIRMED.
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
[2022-03-26] MEDS: ketorolac 30 mg/mL INJ IM (09:27)
[2022-03-26] MEDS: acetaminophen 325 mg Tablet 650 MG PO (09:27)
[2022-03-26] MEDS: fentaNYL 50 mcg/mL INJ 2mL IVP (09:28)
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
[2022-03-26 10:07] LABS: Glucose Point of Care 89 mg/dL (70-110)
--- NOTE | 2022-03-26 10:38 | PC.PHAR ---
pt states he takes care of his own medications-pt states he stop taking his hydralazine 10mg tid last filled 03/13/22 30d/s and isosorbide dinitrate 10mg tid last filled 03/13/22 30d/s 2 weeks ago-notes are made in the pharmacy comments
--- NOTE | 2022-03-28 13:01 | DCPLANNER ---
Addendum entered by Ellie Mccord 04/03/22 15:21: manager massage department was sent the following message from ortho regarding follow up appointment: Pt states he was sent to [place] by us and is currently up there still Original Note: manager massage department had message to schedule a follow up appointment for patient with ortho. manager massage department sent patients information to the front office staff at ortho. Patients information will be printed and reviewed. Clinic will call patient with appointment information.
== END 2022-03-26 10:49 | disposition home or self-care (01) ==
PROVIDERS: Emergency Provider Emergency Medicine; PCP Family Medicine
DX: S43.005A Unspecified dislocation of left shoulder joint, initial encounter (principal); S42.292A Other displaced fracture of upper end of left humerus, initial encounter for closed fracture; S01.312A Laceration without foreign body of left ear, initial encounter; T14.8XXA Other injury of unspecified body region, initial encounter; V89.2XXA Person injured in unspecified motor-vehicle accident, traffic, initial encounter; J44.9 Chronic obstructive pulmonary disease, unspecified; I11.0 Hypertensive heart disease with heart failure; I50.9 Heart failure, unspecified; E10.9 Type 1 diabetes mellitus without complications; F17.210 Nicotine dependence, cigarettes, uncomplicated; Z79.4 Long term (current) use of insulin
CPT/HCPCS: 23650; 29240; 36416; 73030; 82962; 96374; 96375; 99284; J1885; J3010

== ENCOUNTER 2022-03-26 21:58 | Emergency (ER) | payer OTHER, SELFPAY ==
--- NOTE | 2022-03-26 22:06 | XRR_ITS ---
PROCEDURE INFORMATION: Exam: XR Chest Exam date and time: 03/27/2022 12:08 AM Age: 32 years old Clinical indication: Shortness of breath; Patient HX: C/O SOB. TECHNIQUE: Imaging protocol: Radiologic exam of the chest. Views: 1 view. COMPARISON: CR (CHEST, ) 03/26/2022 3:39 AM FINDINGS: Lungs: Mild pulmonary vascular congestion, no change. Pleural spaces: Unremarkable. No pleural effusion. No pneumothorax. Heart/Mediastinum: Cardiomegaly. Bones/joints: No acute fracture. XR/XR chest 1V portable [id number] IMPRESSION: Mild pulmonary vascular congestion, no change.
[2022-03-26 23:06] VITALS: BMI 28.0
[2022-03-26 23:12] VITALS: BP 142/101; PULSE 101; RESP 16; TEMP 36.6; O2SAT 99
--- NOTE | 2022-03-26 23:19 | ECG_ITS ---
[facility] Test Date: 2022-03-26 Pat Name: Maximiliano Jack Department: Room: Gender: Male Tufter Hand: : 1990 Requested By: Rob Watson Order Number: [id number] Diego MD: Laci Morley M.D. Measurements Intervals [place] Rate: 94 P: 42 WV: 127 QRS: -1 QRSD: 102 T: 47 QT: 358 QTc: 449 Interpretive Statements SINUS RHYTHM POSSIBLE LEFT ATRIAL ENLARGEMENT [-0.1mV P-WAVE IN V1/V2] NONSPECIFIC T-WAVE ABNORMALITY Compared to ECG 03/10/2022 23:43:12 Sinus tachycardia no longer present T-wave abnormality still present Electronically Signed On 03-27-2022 14:22:40 CDT by Laci Morley M.D. [id number]
--- NOTE | 2022-03-27 00:14 | ECG_ITS ---
[facility] Test Date: 2022-03-27 Pat Name: Maximiliano Jack Department: Room: Gender: Male Manager Chemical: : 1990 Requested By: Rob Watson Order Number: [id number] Diego MD: Laci Morley M.D. Measurements Intervals [place] Rate: 100 P: 52 NV: 130 QRS: 16 QRSD: 97 T: 71 QT: 360 QTc: 466 Interpretive Statements SINUS TACHYCARDIA POSSIBLE LEFT ATRIAL ENLARGEMENT [-0.1mV P WAVE IN V1/V2] POSSIBLE ANTERIOR MYOCARDIAL INFARCTION , PROBABLY OLD [30 ms Q WAVE IN V3/V4, OR R < 0.2 mV IN V4] ABNORMAL RHYTHM ECG Compared to ECG 03/10/2022 23:43:12 Myocardial infarct finding now present T-wave abnormality no longer present Electronically Signed On 03-27-2022 14:26:31 CDT by Laci Morley M.D. [id number]
[2022-03-27 00:17] VITALS: BP 139/78; PULSE 94; RESP 16; TEMP 36.6; O2SAT 99
[2022-03-27 00:18] LABS: Basophils % 0.4 %; Eosinophils # 0.1 10^3/uL (0.0-0.8); Eosinophils % 0.8 %; Hematocrit 39.5 % (42.0-52.0); Hemoglobin 12.3 g/dL (11.7-16.6); Lymphocytes # 2.5 10^3/uL (0.8-4.8); Mean Corpuscular HGB Conc 31.1 g/dL (30.0-36.0); Mean Corpuscular Hemoglobin 28.1 pg (28.0-34.0); Mean Corpuscular Volume 90.2 fl (80-94); Mean Platelet Volume 10.7 fL (7.4-10.4); Monocytes # 0.5 10^3/uL (0.2-0.9); Monocytes % 4.5 %; Neutrophils # 6.91 10^3/uL (1.8-7.7); Neutrophils % 68.9 %; Nucleated Red Blood Cells % 0.2 %; Platelet Count 266 10^3/cmm (130-400); Red Blood Count 4.38 10^6/uL (4.1-5.3); Red Cell Distribution Width 13.5 % (12.1-15.1)
[2022-03-27 00:32] LABS: INR 1.51 (0.8-1.2)
[2022-03-27 00:41] LABS: Troponin(5th) Baseline 723 ng/L (0-15)
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
[2022-03-27 01:00] LABS: Alanine Aminotransferase 236 U/L (0-41); Albumin Level 2.7 g/dL (3.5-5.2); Alkaline Phosphatase 116 IU/L (40-130); Aspartate Amino Transferase 98 U/L (0-40); Blood Urea Nitrogen 55 mg/dL (6-20); Calcium 8.3 mg/dL (8.5-10.5); Carbon Dioxide 24 mmol/L (22-29); Chloride 101 mmol/L (98-107); Globulin 2.8 g/dL (1.3-4.6); Glomerular Filtration Rate 14.9 mL/min (90-130); Glucose 151 mg/dL (65-115); Lipase 34 U/L (13-60); Osmolality Calculated 298 mOsm/kg (285-295); Sodium 135 mmol/L (136-145); Total Bilirubin 0.4 mg/dL (0.15-1.2); Total Protein 5.5 g/dL (6.6-8.7)
[2022-03-27 01:02] LABS: Anion Gap 14.4 (5-19); Potassium 4.4 mmol/L (3.5-5.1)
[2022-03-27] MEDS: ondansetron 2 mg/ML SDV 2 mL 4 MG IVP (01:33)
[2022-03-27] MEDS: lidocaine 2% viscous 15 ML, aluminum-mag hydrox-simethicon 30 ML, sucralfate oral liq 1 GM PO (01:33)
[2022-03-27 02:15] LABS: SARS Covid-2 Antigen Negative (Negative)
[2022-03-27] MEDS: heparin 5,000 unit/mL INJ 1 mL 4000 UNIT IVP (03:56)
--- NOTE | 2022-03-27 04:07 | ECG_ITS ---
[facility] Test Date: 2022-03-27 Pat Name: Maximiliano Jack Department: Room: Gender: Male Epic [employer] Specialist: : 1990 Requested By: Rob Watson Order Number: [id number] Diego MD: Laci Morley M.D. Measurements Intervals [place] Rate: 98 P: 59 MA: 127 QRS: 42 QRSD: 94 T: 87 QT: 375 QTc: 479 Interpretive Statements SINUS RHYTHM POSSIBLE LEFT ATRIAL ENLARGEMENT [-0.1mV P-WAVE IN V1/V2] Compared to ECG 03/27/2022 00:14:48 Sinus tachycardia no longer present Myocardial infarct finding no longer present Electronically Signed On 03-27-2022 14:27:57 CDT by Laci Morley M.D. [id number]
[2022-03-27 04:14] VITALS: BP 139/78; PULSE 94; RESP 16; TEMP 36.6; O2SAT 99
== END 2022-03-27 04:18 | disposition short-term general hospital (02) ==
PROVIDERS: Emergency Provider Emergency Medicine; PCP Family Medicine
DX: N17.9 Acute kidney failure, unspecified (principal); I13.0 Hypertensive heart and chronic kidney disease with heart failure and stage 1 through stage 4 chronic kidney disease, or unspecified chronic kidney disease; E10.22 Type 1 diabetes mellitus with diabetic chronic kidney disease; N18.9 Chronic kidney disease, unspecified; I50.9 Heart failure, unspecified; R77.8 Other specified abnormalities of plasma proteins; Z79.4 Long term (current) use of insulin; J44.9 Chronic obstructive pulmonary disease, unspecified; F17.210 Nicotine dependence, cigarettes, uncomplicated; Z20.822 Contact with and (suspected) exposure to COVID-19
CPT/HCPCS: 71045; 80053; 83690; 83880; 84484; 85025; 85610; 87426; 93005; 96374; 96375; 99285; J1644; J2405